=== PATIENT | female | born 1975 | race Two or more races ===

== ENCOUNTER 2020-01-21 10:28 | Outpatient (REF) | payer OTHER, SELFPAY ==
[2020-01-21 11:00] LABS: COVID-19 Test Negative (Negative)
== END 2020-01-21 10:29 | disposition home or self-care (01) ==
LOC: HO.LAB 10:28
PROVIDERS: PCP Internal Medicine; Visit Provider Internal Medicine
DX: Z20.828 Contact with and (suspected) exposure to other viral communicable diseases (principal)
CPT/HCPCS: 87635

== ENCOUNTER 2020-02-28 07:08 | Outpatient (REF) | payer OTHER, SELFPAY ==
[2020-02-28 07:50] LABS: COVID-19 Test Negative (Negative)
== END 2020-02-28 07:09 | disposition home or self-care (01) ==
LOC: HO.LAB 07:08
PROVIDERS: Visit Provider Internal Medicine
DX: Z20.828 Contact with and (suspected) exposure to other viral communicable diseases (principal)
CPT/HCPCS: 87635; C9803

== ENCOUNTER 2020-03-23 16:18 | Outpatient (REF) | payer OTHER, SELFPAY ==
--- NOTE | 2020-03-23 | XR_ITS ---
EXAMINATION: XR SINUSES CLINICAL INFORMATION: Pain. Rule out infiltration. COMPARISON: 09/13/2018 TECHNIQUE: 4 views of the sinuses were obtained. FINDINGS: Paranasal sinuses appear clear without air-fluid levels. No fractures are identified. No radiodense foreign bodies. XR/XR sinus min 3V IMPRESSION: Unremarkable examination.
[2020-03-23 17:34] LABS: MANUAL DIFF FLAG NO
[2020-03-23 17:41] LABS: Basophils Percent Auto 0.8 % (0-2); Eosinophils Absolute Auto 0.3 X10*3/uL (0.0-0.4); Hematocrit 39.6 % (37-47); Hemoglobin 13.7 g/dl (12.0-16.0); Imm Gran Abs Auto 0.01 X10*3/uL (0.00-0.03); Imm Gran Pct Auto 0.2 % (0.0-0.4); Lymphocytes Absolute Auto 1.9 X10*3/uL (1.2-4.9); Lymphocytes Percent Auto 37.1 % (20-40); Mean Corpuscular HGB Conc 34.6 g/dl (31.0-35.0); Mean Corpuscular Hemoglobin 28.2 pg (27.0-33.0); Mean Corpuscular Volume 81.6 fL (80-98); Monocytes Absolute Auto 0.4 X10*3/uL (0.1-1.2); Neutrophils Absolute Auto 2.5 X10*3/uL (2.0-8.3); Neutrophils Percent Auto 49.9 % (45-73); Platelet Count 271 X10*3/uL (160-400); Red Blood Count 4.85 X10*6/uL (4.20-5.50); Red Cell Distribution Width 12.4 % (11.0-16.0)
[2020-03-23 17:49] LABS: Estimated Average Glucose 212 mg/dL
[2020-03-23 18:07] LABS: Alanine Aminotransferase 33 U/L (0-31); Albumin Level 4.5 g/dL (3.5-5.0); Alkaline Phosphatase 91 U/L (39-117); Anion Gap 15 (12-20); Aspartate Amino Transferase 21 U/L (5-31); Bilirubin Total 0.5 mg/dL (0.0-1.0); Blood Urea Nitrogen 11 mg/dL (9-16); C Reactive Protein 1.78 mg/dL (< or = 0.50); Carbon Dioxide 25 mmol/L (22-29); Chloride 102 mmol/L (96-108); Cholesterol 203 mg/dL; Estimated Glomerular Filt Rate > 60; Glucose Random 190 mg/dL (60-115); Potassium 4.1 mmol/l (3.3-5.1); Sodium 138 mmol/L (135-145); Total Protein 7.3 g/dL (6.5-8.0)
[2020-03-23 18:13] LABS: Creatinine Urine 170.36 mg/dL; Microalbum/Creatinine Ratio Ur 4.1 ug/mg cr
[2020-03-23 18:28] LABS: Free T4 (Free Thyroxine) 0.92 ng/dL (0.71-1.85); Thyroid Stimulating Hormone 1.28 uIU/mL (0.32-4.0)
== END 2020-03-23 16:19 | disposition home or self-care (01) ==
LOC: HO.LAB 16:18
PROVIDERS: PCP Internal Medicine; Visit Provider Internal Medicine
DX: R51.9 Headache, unspecified (principal); K21.9 Gastro-esophageal reflux disease without esophagitis; R53.83 Other fatigue; E11.9 Type 2 diabetes mellitus without complications; J45.909 Unspecified asthma, uncomplicated; M79.10 Myalgia, unspecified site
CPT/HCPCS: 36415; 70220; 80053; 82043; 82465; 83036; 84439; 84443; 85025; 86140; 87071; 87147; 87880

== ENCOUNTER 2020-05-01 10:47 | Outpatient (REF) | payer OTHER, SELFPAY ==
[2020-05-02 11:45] LABS: BV Int Neg Control Negative (Negative); BV Int Pos Control Positive (Positive)
[2020-05-04 16:48] LABS: C. trachomatis RNA TMA NOT DETECTED (NOT DETECTED); N. gonorrhoeae RNA TMA NOT DETECTED (NOT DETECTED)
== END 2020-05-01 10:48 | disposition home or self-care (01) ==
LOC: HO.LAB 10:47
PROVIDERS: PCP Internal Medicine; Visit Provider Advanced Practice Midwife
DX: Z01.419 Encounter for gynecological examination (general) (routine) without abnormal findings (principal); N89.8 Other specified noninflammatory disorders of vagina; N90.89 Other specified noninflammatory disorders of vulva and perineum; Z20.2 Contact with and (suspected) exposure to infections with a predominantly sexual mode of transmission
CPT/HCPCS: 36415; 87480; 87491; 87510; 87591; 87660

== ENCOUNTER 2020-05-08 08:57 | Outpatient (REF) | payer OTHER, SELFPAY | END 2020-05-08 08:58 | disposition home or self-care (01) | LOC: HO.LAB 08:57 | PROVIDERS: PCP Internal Medicine; Visit Provider Obstetrics & Gynecology | DX: L30.9 Dermatitis, unspecified (principal); J45.909 Unspecified asthma, uncomplicated; E11.9 Type 2 diabetes mellitus without complications | CPT/HCPCS: 56605; 88305 ==

== ENCOUNTER → 2020-05-15 11:30 | Outpatient (BNVA) | payer OTHER, SELFPAY | PROVIDERS: Visit Provider Obstetrics & Gynecology ==

== ENCOUNTER 2020-06-01 09:19 | Emergency (ER) | payer OTHER, SELFPAY ==
[2020-06-01 09:27] VITALS: BP 135/94; PULSE 100; RESP 26; O2SAT 95; BMI 32.0
--- NOTE | 2020-06-01 09:36 | ED_ITS ---
HPI - URI/Sore Throat General Chief Complaint: Upper Respiratory Symptoms Stated Complaint: sob,asthma Time Seen by Provider: 06/01/20 09:36 Source: patient Mode of arrival: ambulatory Limitations: no limitations History of Present Illness HPI Narrative: Shortness of breath for 1 week now with increasing shortness of breath, has been on prednisone for 3 days MD elicited complaint: cough Pertinent past history: asthma Onset (ago): week(s) Consistency: constant Severity: moderate Exacerbating factors: exertion Associated symptoms: cough Related Data Home Medications Medication Instructions Recorded Confirmed albuterol sulfate 90 mcg/actuation 2 puff PO QID 05/08/20 aerosol inhaler blood sugar diagnostic #10 ea 05/08/20 budesonide-formoterol HFA 160 2 puff PO BID 05/08/20 mcg-4.5 mcg/actuation aerosol inhaler cyclobenzaprine 10 mg tablet 10 mg PO TID PRN 05/08/20 dulaglutide 1.5 mg/0.5 mL mg SUBCUT 05/08/20 subcutaneous pen injector insulin glargine 100 unit/mL (3 40 unit SUBCUT BEDTIME 05/08/20 mL) subcutaneous pen insulin lispro 100 unit/mL 2 - 12 unit SUBCUT QID 05/08/20 subcutaneous pen lancets 33 gauge #100 ea 05/08/20 pen needle, diabetic 32 gauge x #50 ea 05/08/20/ umeclidinium 62.5 mcg/actuation 1 inh PO DAILY 05/08/20 blister powder for inhalation Previous Rx's Medication Instructions Recorded metronidazole 0.75 % vaginal gel 1 appful VAGINAL BEDTIME 5 Days 05/04/20 #70 g clobetasol 0.05 % topical ointment 1 appl TOPICAL DAILY #60 g 05/15/20 fluconazole 150 mg tablet 150 mg PO ONCE #1 tab 05/15/20 prednisone 10 mg PO DAILY #49 tab 06/01/20 Allergies Allergy/AdvReac Type Severity Reaction Status Date / Time No Known Allergies Allergy Verified 05/15/20 11:31 Review of Systems Constitutional: Constitutional: Reports no additional constitutional complaints Eyes: Eyes: Reports no additional eye complaints ENT: Denies dizziness Cardiovascular: Cardiovascular: Reports no additional cardiovascular complaints Respiratory: Respiratory: Reports as per HPI Gastrointestinal: Gastrointestinal: Reports no additional gastrointestinal complaints Genitourinary: Genitourinary: Reports no additional female genitourinary complaints Musculoskeletal: Musculoskeletal: Reports no additional musculoskeletal complaints Integumentary/Breasts: Skin/Breast: Denies rash Neurologic: Reports system reviewed and no additional complaints, except as documented, Denies dizziness and Denies Sensory deficit (Neuro) Psychiatric: Psychiatric: Denies anxiety [facility] Past Medical History Medical History Asthma Diabetes mellitus Lichen sclerosus of female genitalia Family History Family History Maternal Grandmother Colon cancer Social History Social History Alcohol intake: current Alcohol intake frequency: a few times a month Smoking Status: Never smoker Advance Directives: No Advance Directives Information Provided: No Sexual orientation: Straight/Heterosexual Physical Exam Vital Signs: Vital Signs: Last Vital Signs Pulse 93 06/01/20 11:41 Resp 22 H 06/01/20 11:41 BP 112/70 06/01/20 11:41 Pulse Ox 98 06/01/20 11:41 Body Mass Index 32.0 Const: General: healthy appearing Nutritional Appearance: average body habitus Orientation/consciousness: oriented to person and patient oriented x3 Limitations: no limitations HENMT: Head: Yes normal to inspection Ears: external ears normal General nose exam: Normal external nose present Mouth: Normal oral and palatal mucosa present and oropharynx normal Throat: Yes posterior oropharynx normal Eyes: General: appearance normal, both eyes and all related structures Neck: Other: supple Neck: Yes normal visual inspection Chest: Chest palpation & inspection: normal inspection of the chest Resp: Other: diffuse wheezing some retractions but moving air Cardio: Jugular venous distension: no JVD Rate: regular rate Rhythm: regular rhythm Heart sounds: S1 normal heart sound present and S2 normal heart sound present GI: Inspection: Yes normal to inspection Palpation (GI): Soft to palpation, nontender and No hepatosplenomegaly present Auscultation: normal bowel sounds : General: Yes no CVA tenderness Back/Spine/Pelvis: Back: no CVA tenderness Skin: General skin exam: no rashes or lesions noted Neuro: General: oriented to person and patient oriented x3 Cranial nerves: Yes CN's II-XII intact bilaterally Motor exam (neuro): 5/5 motor strength present throughout Sensory Exam: No Sensory deficit (Neuro) Extrem: General: Yes normal to inspection Psych: Appearance: grossly normal Course Course Course Narrative: breath sounds clear, feels 100% better MDM - URI/Sore Throat MDM Narrative Medical decision making narrative: asthma exacerbation Lab Data Result diagrams: 06/01/20 10:02 06/01/20 10:02 Labs: Lab Results 06/01/20 06/01/20 Range/Units 10:02 10:02 WBC 13.1 H (4.8-10.8) X10*3/uL RBC 5.34 (4.20-5.50) X10*6/uL Hgb 14.9 (12.0-16.0) g/dl Hct 43.0 (37-47) % MCV 80.5 (80-98) fL MCH 27.9 (27.0-33.0) pg MCHC 34.7 (31.0-35.0) g/dl RDW 12.3 (11.0-16.0) % Plt Count 313 (160-400) X10*3/uL MPV 10.7 (9.4-12.3) fL Immature Gran % (Auto) 0.6 H (0.0-0.4) % Neut % (Auto) 68.6 (45-73) % Lymph % (Auto) 25.0 (20-40) % Barry % (Auto) 4.6 (2-11) % Eos % (Auto) 0.8 (0-4) % Baso % (Auto) 0.4 (0-2) % Lymph # (Auto) 3.3 (1.2-4.9) X10*3/uL Barry # (Auto) 0.6 (0.1-1.2) X10*3/uL Eos # (Auto) 0.1 (0.0-0.4) X10*3/uL Baso # (Auto) 0.1 (0.0-0.2) X10*3/uL Abs Immat Gran (auto) 0.08 H (0.00-0.03) X10*3/uL Absolute Neuts (auto) 9.0 H (2.0-8.3) X10*3/uL Absolute Nucleated RBC 0.000 (0.0-0.012) X10*3/uL Nucleated RBC % (auto) 0.0 (0.0-0.2) /100WBC Sodium 137 (135-145) mmol/L Potassium 4.2 (3.3-5.1) mmol/L Chloride 101 (96-108) mmol/L Carbon Dioxide 25 (22-29) mmol/L Anion Gap 15 (12-20) BUN 18 H D (9-16) mg/dL Creatinine 0.84 (0.5-1.4) mg/dL Estim Creat Clear Calc 76.2 Estimated GFR > 60 Random Glucose 296 H D (60-115) mg/dL Calcium 9.5 (8.4-10.2) mg/dL Discharge Plan Discharge Clinical Impression: Asthma attack Qualifiers: Asthma severity: moderate Asthma persistence: persistent Qualified Code(s): J45.41 - Moderate persistent asthma with (acute) exacerbation Patient Disposition: Home, Self-Care Instructions: Asthma (ED) Prescriptions: New prednisone 10 mg tablet 10 mg PO DAILY Qty: 49 RF: 0 No Action metronidazole [Metrogel Vaginal] 0.75 % gel 1 appful vaginal BEDTIME 5 Days Qty: 70 RF: 0 clobetasol 0.05 % ointment 1 appl topical DAILY Qty: 60 RF: 4 fluconazole 150 mg tablet 150 mg PO ONCE Qty: 1 RF: 0 Lantus Solostar U-100 Insulin 100 unit/mL (3 mL) insulin pen 40 unit subcut BEDTIME RF: 0 albuterol sulfate 90 mcg/actuation HFA aerosol inhaler 2 puff PO QID RF: 0 Trulicity 1.5 mg/0.5 mL pen injector subcut RF: 0 (DME) lancets 33 gauge misc See Rx Instructions ea .ROUTE QID Qty: 100 RF: 0 (DME) pen needle, diabetic 32 gauge x 5/32 needle See Rx Instructions ea subcut QID Qty: 50 RF: 0 (DME) OneTouch Verio test strips Strip See Rx Instructions ea Not Applicable QID Qty: 10 RF: 0 cyclobenzaprine 10 mg tablet 10 mg PO TID PRN (Reason: muscle spasm) RF: 0 budesonide-formoterol 160-4.5 mcg/actuation HFA aerosol inhaler 2 puff PO BID RF: 0 insulin lispro 100 unit/mL insulin pen 2 - 12 unit subcut QID RF: 0 Incruse Ellipta 62.5 mcg/actuation blister with device 1 inh PO DAILY RF: 0 Referrals: Leonardo Melgar MD [Primary Care Provider] - 2 days
[2020-06-01] MEDS: methylPREDNISolone Sod Succ/PF 125 MG/2 ML VIAL IVPUSH (09:51)
[2020-06-01] MEDS: ondansetron HCL 4 MG/2 ML VIAL IVPUSH (09:55)
[2020-06-01 10:10] LABS: MANUAL DIFF FLAG NO
[2020-06-01 10:12] LABS: Basophils Absolute Auto 0.1 X10*3/uL (0.0-0.2); Basophils Percent Auto 0.4 % (0-2); Eosinophils Absolute Auto 0.1 X10*3/uL (0.0-0.4); Eosinophils Percent Auto 0.8 % (0-4); Hemoglobin 14.9 g/dl (12.0-16.0); Imm Gran Abs Auto 0.08 X10*3/uL (0.00-0.03); Imm Gran Pct Auto 0.6 % (0.0-0.4); Lymphocytes Absolute Auto 3.3 X10*3/uL (1.2-4.9); Mean Corpuscular HGB Conc 34.7 g/dl (31.0-35.0); Mean Corpuscular Hemoglobin 27.9 pg (27.0-33.0); Mean Corpuscular Volume 80.5 fL (80-98); Mean Platelet Volume 10.7 fL (9.4-12.3); Monocytes Absolute Auto 0.6 X10*3/uL (0.1-1.2); Monocytes Percent Auto 4.6 % (2-11); Neutrophils Percent Auto 68.6 % (45-73); Platelet Count 313 X10*3/uL (160-400); Red Blood Count 5.34 X10*6/uL (4.20-5.50); Red Cell Distribution Width 12.3 % (11.0-16.0); White Blood Count 13.1 X10*3/uL (4.8-10.8)
[2020-06-01] MEDS: Albuterol Sulfate (0.083%) 2.5 MG/3 ML VIAL.NEB 10 MG INHALE (10:16)
[2020-06-01 10:34] LABS: Anion Gap 15 (12-20); Blood Urea Nitrogen 18 mg/dL (9-16); Calcium 9.5 mg/dL (8.4-10.2); Carbon Dioxide 25 mmol/L (22-29); Chloride 101 mmol/L (96-108); Creatinine Clr Calc Pharmacy 76.2; Estimated Glomerular Filt Rate > 60; Glucose Random 296 mg/dL (60-115); Potassium 4.2 mmol/L (3.3-5.1); Sodium 137 mmol/L (135-145)
--- NOTE | 2020-06-01 11:13 | PC.NURSE ---
Pt reporting that she is feelng much better at this time. She is doing continuous treatment at this time. She had one episode of vomiting earlier after a coughing fit for which she was medicated with zofran. She has been coughing much less since. When she arrived she had insp and exp wheezing to upper lung flores and very diminished bases. She is less wheezy at this time and is less diminished as well.
[2020-06-01 11:41] VITALS: BP 112/70; PULSE 93; RESP 22; O2SAT 98
[2020-06-01] MEDS: Albuterol/Iprat 2.5/0.5MG 3 ML AMPUL.NEB INHALE (13:04)
== END 2020-06-01 14:04 | disposition home or self-care (01) ==
PROVIDERS: Emergency Provider Emergency Medicine; PCP Internal Medicine
DX: J45.41 Moderate persistent asthma with (acute) exacerbation (principal); E11.9 Type 2 diabetes mellitus without complications; Z79.899 Other long term (current) drug therapy; Z79.4 Long term (current) use of insulin
CPT/HCPCS: 36415; 80048; 85025; 96374; 96375; 99283; 99284; J2405; J2930

== ENCOUNTER → 2020-06-19 10:09 | Outpatient (BNVA) | payer OTHER, SELFPAY | PROVIDERS: PCP Internal Medicine; Visit Provider Hospitalist ==

== ENCOUNTER 2020-11-27 08:09 | Outpatient (REF) | payer OTHER, SELFPAY ==
--- NOTE | ~2020-11-27 | MM_ITS ---
EXAMINATION: MM SCREENING DIGITAL BREAST TOMOSYNTHESIS, BILATERAL CLINICAL INFORMATION: Screening. Asymptomatic. The lifetime risk of breast cancer based on the Tyrer-Cuzick Model is 9%. COMPARISON: Mammography: 02/27/2019, 07/18/2018, 08/10/2016 (baseline) TECHNIQUE: Digital breast tomosynthesis is performed in both the craniocaudal and mediolateral oblique views along with computer-aided detection (CAD). Synthesized 2D images are generated from the tomosynthesis. FINDINGS: The breasts are heterogeneously dense, which may obscure small masses (ACR BI-RADS breast composition Category c). There are no significant masses, abnormal calcifications, or other abnormalities. Focal nodular asymmetry central 3:00 right breast mid to posterior depth is stable from prior studies dating back to baseline exam 2017. No developing density. There are scattered bilateral punctate round calcifications and some digital processing artifact anteriorly at synthesized right MLO view. The axilla and skin contours are unremarkable. No significant changes. MM/MM tomosynthesis screening BI IMPRESSION: No significant changes from prior studies. ASSESSMENT: BI-RADS 2: Benign RECOMMENDATION: Routine annual mammography screening. This patient's information was entered into a reminder system with a target due date for their next mammogram.
== END 2020-11-27 08:10 | disposition home or self-care (01) ==
LOC: HO.MAMMO 08:09
PROVIDERS: Visit Provider Internal Medicine
DX: Z12.31 Encounter for screening mammogram for malignant neoplasm of breast (principal)
CPT/HCPCS: 77063; 77067

== ENCOUNTER 2020-12-07 13:17 | Outpatient (REF) | payer OTHER, SELFPAY ==
--- NOTE | ~2020-12-07 | XR_ITS ---
EXAMINATION: XR CHEST CLINICAL INFORMATION: Bronchopneumonia. COMPARISON: Most recent chest radiograph dated 07/01/2019. TECHNIQUE: 2 views of the chest were obtained. FINDINGS: The lungs are clear. The cardiomediastinal silhouette is normal in size. There is no pleural effusion or pneumothorax. No acute osseous abnormality. XR/XR chest 2V IMPRESSION: No acute cardiopulmonary findings.
== END 2020-12-07 13:18 | disposition home or self-care (01) ==
LOC: HO.XRAY 13:17
PROVIDERS: PCP Internal Medicine; Visit Provider Hospitalist
DX: J45.50 Severe persistent asthma, uncomplicated (principal); J30.9 Allergic rhinitis, unspecified; J18.0 Bronchopneumonia, unspecified organism
CPT/HCPCS: 71046; 96372; 99212; J2930

== ENCOUNTER 2021-01-15 09:19 | Outpatient (REF) | payer OTHER, SELFPAY ==
[2021-01-15 09:50] LABS: MANUAL DIFF FLAG NO
[2021-01-15 10:51] LABS: Basophils Percent Auto 0.6 % (0-2); Eosinophils Absolute Auto 0.3 X10*3/uL (0.0-0.4); Eosinophils Percent Auto 5.7 % (0-4); Hematocrit 40.9 % (37-47); Hemoglobin 14.1 g/dl (12.0-16.0); Imm Gran Abs Auto 0.04 X10*3/uL (0.00-0.03); Imm Gran Pct Auto 0.8 % (0.0-0.4); Lymphocytes Absolute Auto 1.1 X10*3/uL (1.2-4.9); Mean Corpuscular HGB Conc 34.5 g/dl (31.0-35.0); Mean Corpuscular Volume 81.3 fL (80-98); Mean Platelet Volume 10.5 fL (9.4-12.3); Monocytes Absolute Auto 0.4 X10*3/uL (0.1-1.2); Monocytes Percent Auto 7.5 % (2-11); Neutrophils Absolute Auto 3.5 X10*3/uL (2.0-8.3); Neutrophils Percent Auto 65.4 % (45-73); Platelet Count 230 X10*3/uL (160-400); Red Blood Count 5.03 X10*6/uL (4.20-5.50); Red Cell Distribution Width 12.4 % (11.0-16.0); White Blood Count 5.3 X10*3/uL (4.8-10.8)
[2021-01-15 11:03] LABS: Estimated Average Glucose 266 mg/dL; Hemoglobin A1c % 10.9 %
[2021-01-15 11:13] LABS: Alanine Aminotransferase 41 U/L (0-31); Albumin Level 4.2 g/dL (3.5-5.0); Alkaline Phosphatase 102 U/L (39-117); Anion Gap 13 (12-20); Aspartate Amino Transferase 22 U/L (5-31); Bilirubin Total 0.5 mg/dL (0.0-1.0); Blood Urea Nitrogen 8 mg/dL (9-16); Calcium 9.3 mg/dL (8.4-10.2); Carbon Dioxide 27 mmol/L (22-29); Chloride 101 mmol/L (96-108); Cholesterol 191 mg/dL; Estimated Glomerular Filt Rate > 60; Glucose Fasting 313 mg/dL (60-99); HDL Cholesterol 55 mg/dL; LDL Cholesterol Calculated 116 mg/dl; Potassium 4.3 mmol/L (3.3-5.1); Sodium 137 mmol/L (135-145); Total Protein 7.1 g/dL (6.5-8.0); Triglycerides 103 mg/dL
[2021-01-15 13:31] LABS: Creatinine Urine 193.69 mg/dL; Microalbum/Creatinine Ratio Ur 13.9 ug/mg cr
== END 2021-01-15 09:20 | disposition home or self-care (01) ==
LOC: HO.LAB 09:19
PROVIDERS: PCP Internal Medicine; Visit Provider Internal Medicine
DX: E11.9 Type 2 diabetes mellitus without complications (principal); J45.909 Unspecified asthma, uncomplicated; E78.00 Pure hypercholesterolemia, unspecified
CPT/HCPCS: 36415; 80053; 80061; 82043; 83036; 85025

== ENCOUNTER → 2021-02-05 11:09 | Outpatient (BNVA) | payer OTHER, SELFPAY | PROVIDERS: PCP Internal Medicine; Visit Provider Hospitalist | DX: J45.50 Severe persistent asthma, uncomplicated (principal); J30.9 Allergic rhinitis, unspecified | CPT/HCPCS: 99212 ==

== ENCOUNTER → 2021-03-23 09:51 | Outpatient (BNVA) | payer OTHER, SELFPAY | PROVIDERS: PCP Internal Medicine; Visit Provider Hospitalist | DX: J45.51 Severe persistent asthma with (acute) exacerbation (principal); J30.9 Allergic rhinitis, unspecified | CPT/HCPCS: 96372; 99212; J2930 ==

== ENCOUNTER 2021-05-24 09:34 | Outpatient (REF) | payer OTHER, SELFPAY ==
[2021-05-24 15:45] LABS: CT PCR NOT DETECTED (Not Detect.); NG PCR NOT DETECTED (Not Detect.)
[2021-05-25 11:01] LABS: BV Int Neg Control Negative (Negative); BV Int Pos Control Positive (Positive)
[2021-05-26 20:51] LABS: HPV mRNA E6/E7 rflx Not Detected (Not Detected)
== END 2021-05-24 09:35 | disposition home or self-care (01) ==
LOC: HO.LAB 09:34
PROVIDERS: PCP Internal Medicine; Visit Provider Advanced Practice Midwife
DX: Z01.411 Encounter for gynecological examination (general) (routine) with abnormal findings (principal); Z11.51 Encounter for screening for human papillomavirus (HPV); N94.6 Dysmenorrhea, unspecified; N92.0 Excessive and frequent menstruation with regular cycle; Z20.2 Contact with and (suspected) exposure to infections with a predominantly sexual mode of transmission
CPT/HCPCS: 87480; 87491; 87510; 87591; 87624; 87660; 88142

== ENCOUNTER → 2021-07-05 14:51 | Outpatient (BNVA) | payer OTHER, SELFPAY | PROVIDERS: PCP Internal Medicine; Visit Provider Hospitalist | DX: J45.909 Unspecified asthma, uncomplicated (principal) | CPT/HCPCS: 99212 ==

== ENCOUNTER 2021-07-13 07:35 | Outpatient (REF) | payer OTHER, SELFPAY ==
[2021-07-13 07:54] LABS: MANUAL DIFF FLAG NO
[2021-07-13 08:25] LABS: Basophils Percent Auto 0.7 % (0-2); Eosinophils Percent Auto 0.2 % (0-4); Hematocrit 42.5 % (37.0-47.0); Imm Gran Abs Auto 0.02 X10*3/uL (0.00-0.03); Imm Gran Pct Auto 0.5 % (0.0-0.4); Lymphocytes Absolute Auto 1.2 X10*3/uL (1.2-4.9); Lymphocytes Percent Auto 28.6 % (20-40); Mean Corpuscular HGB Conc 35.3 g/dl (31.0-35.0); Mean Corpuscular Hemoglobin 28.3 pg (27.0-33.0); Mean Corpuscular Volume 80.2 fL (80.0-98.0); Mean Platelet Volume 10.9 fL (9.4-12.3); Monocytes Absolute Auto 0.3 X10*3/uL (0.1-1.2); Monocytes Percent Auto 7.5 % (2-11); Neutrophils Absolute Auto 2.7 x10*3/uL (2.0-8.3); Neutrophils Percent Auto 62.5 % (45-73); Platelet Count 247 X10*3/uL (160-400); White Blood Count 4.3 X10*3/uL (4.8-10.8)
[2021-07-13 09:11] LABS: Erythrocyte Sedimentation Rate 7 MM/HR (0-20); Thyroid Stimulating Hormone 1.19 uIU/mL (0.32-4.0)
[2021-07-16 13:31] LABS: IgG 848; IgM 88
[2021-07-16 13:32] LABS: Immunoglobulin E 30
== END 2021-07-13 07:36 | disposition home or self-care (01) ==
LOC: HO.LAB 07:35
PROVIDERS: Advanced Practice Midwife; PCP Internal Medicine; Visit Provider Hospitalist
DX: N92.0 Excessive and frequent menstruation with regular cycle (principal); N94.6 Dysmenorrhea, unspecified; J45.51 Severe persistent asthma with (acute) exacerbation; Z91.09 Other allergy status, other than to drugs and biological substances
CPT/HCPCS: 36415; 82784; 82785; 84443; 85025; 85652; 86003

== ENCOUNTER → 2021-08-20 09:32 | Outpatient (BNVA) | payer OTHER, SELFPAY | PROVIDERS: PCP Internal Medicine; Visit Provider Hospitalist | DX: J45.51 Severe persistent asthma with (acute) exacerbation (principal); J30.9 Allergic rhinitis, unspecified | CPT/HCPCS: 99212 ==

== ENCOUNTER 2021-10-21 16:35 | Observation (INO) | payer OTHER, SELFPAY ==
--- NOTE | ~2021-10-21 | XR_ITS ---
EXAMINATION: XR chest 1V CLINICAL INFORMATION: Reason for Exam asthma COMPARISON: Chest radiograph 12/07/2020 TECHNIQUE: One view of the chest XR/XR chest 1V FINDINGS/IMPRESSION: * Minimal peribronchial cuffing, which can be seen in the setting of small airways process such as asthma or bronchitis. No focal consolidation. * No pneumothorax or pleural effusion. * Normal cardiomediastinal silhouette.
[2021-10-21 16:52] VITALS: BP 142/86; PULSE 129; RESP 24; TEMP 36.8; O2SAT 97; BMI 29.2
--- NOTE | 2021-10-21 16:54 | ECG_ITS ---
Test Reason : asthma Blood Pressure : / mmHG Vent. Rate : 128 BPM Atrial Rate : 128 BPM P-R Int : 136 ms QRS Dur : 084 ms QT Int : 308 ms P-R-T Axes : 059 024 021 degrees QTc Int : 449 ms Sinus tachycardia Otherwise normal ECG When compared with ECG of 05-SEP-2018 09:18, No significant change was found Referred By: Generic ED Physician Electronically Signed By:KORI LOPEZ MD
[2021-10-21] MEDS: Magnesium Sulfate/H2O 2 GM/50 ML PIGGYBACK IV (17:32)
[2021-10-21] MEDS: methylPREDNISolone Sod Succ 125 MG/2 ML VIAL 80 MG IVPUSH (17:32)
--- NOTE | 2021-10-21 17:36 | ED.ASTHMA ---
HPI - Asthma General Chief Complaint: Dyspnea Stated Complaint: asthma Time Seen by Provider: 10/21/21 17:15 Source: patient Mode of arrival: ambulatory Limitations: no limitations History of Present Illness HPI Narrative: Patient presents emergency department for evaluation of asthma exacerbation. She reports over the past 2 days her symptoms have become increasingly worse, has associated nonproductive cough and sore throat. She reports trying an hour long breathing treatment prior to arrival, states that this will typically improve her symptoms for a couple of hours but then are returning. States she has not been on steroids recently. Denies any prior intubations due to her asthma. Reports low-grade fever 100.8. Complaining of associated chest burning. Related Data Home Medications Medication Instructions Recorded Confirmed blood sugar diagnostic #10 ea 05/08/20 insulin glargine 100 unit/mL (3 40 unit subcut BEDTIME 05/08/20 06/19/20 mL) subcutaneous pen insulin lispro 100 unit/mL 2 - 12 unit subcut QID 05/08/20 06/19/20 subcutaneous pen lancets 33 gauge #100 ea 05/08/20 pen needle, diabetic 32 gauge x #50 ea 05/08/20 5/32 dulaglutide 1.5 mg/0.5 mL mg subcut 06/19/20 06/19/20 subcutaneous pen injector montelukast 10 mg tablet 10 mg PO DAILY 02/05/21 fluticasone propionate 50 spray intranasal 03/23/21 mcg/actuation nasal spray,suspension Previous Rx's Medication Instructions Recorded budesonide 0.5 mg/2 mL suspension 0.5 mg (2 mL) inhalation BID 30 06/19/20 for nebulization days #120 mL benralizumab 30 mg/mL subcutaneous See Rx Instructions subcut Q8W 28 06/23/20 auto-injector (Fasenra Pen) days #1 mL ipratropium 0.5 mg-albuterol 3 mg 3 ml inhalation QID 30 days #360 mL 12/07/20 (2.5 mg base)/3 mL nebulization soln tiotropium bromide 2.5 2 puff inhalation DAILY 30 days #1 12/28/20 mcg/actuation mist for inhalation ea (Spiriva Respimat) albuterol sulfate 90 mcg/actuation 2 inh inhalation Q6H PRN shortness 03/23/21 aerosol inhaler of breath or wheezing 30 days #18 grams budesonide 160 mcg-glycopyr 9 2 inh inhalation BID 30 days #10.7 03/23/21 mcg-formot 4.8 mcg/actuation HFA grams inhaler (Breztri Aerosphere) roflumilast 250 mcg tablet 250 mcg PO DAILY 30 days #30 tabs 08/20/21 (Daliresp) Allergies Allergy/AdvReac Type Severity Reaction Status Date / Time No Known Allergies Allergy Verified 08/20/21 09:37 Review of Systems Review of Systems: Constitutional : No Fever, No Chills ENT/Mouth : No Hoarseness, positive sore throat, No Rhinorrhea Eyes: No Redness, No Discharge, No Vision Changes Cardiovascular : Positive Chest Pain, positive SOB, positive Dyspnea on Exertion, No Edema Respiratory : positive Cough, No Sputum, positive Wheezing, Gastrointestinal : No Nausea, No Vomiting, No Diarrhea, No abdominal Pain Genitourinary : No Dysuria, No Hematuria Musculoskeletal : No joint pain, No Myalgias Skin : No rash Neuro : No Weakness, No Numbness, No Headache Psych : No anxiety, depression Heme/Lymph: No Bruising, No Bleeding Yes all other systems are reviewed and are negative [facility] Past Medical History Attestation statement: The following information was validated with the patient. Source: old records reviewed Medical History Asthma Bronchopneumonia Chronic allergic rhinitis Diabetes mellitus Lichen sclerosus of female genitalia Surgical History History of nasal surgery (~1995) History of tubal ligation (~2013) Family History Family History Maternal Grandmother Colon cancer Social History Social History Alcohol intake: current Alcohol intake frequency: a few times a month Patient Tobacco Use Status: Never used Tobacco Advance Directives: No Advance Directives Information Provided: No Sexual orientation: Straight/Heterosexual Physical Exam Vital Signs: Vital Signs: Last Vital Signs Temp 98.3 F 10/21/21 19:42 Pulse 125 H 10/21/21 19:58 Resp 20 10/21/21 19:58 BP 146/58 H 10/21/21 19:42 Pulse Ox 95 10/21/21 19:58 O2 Del Method 10/21/21 19:58 BMI result Body Mass Index 29.2 Vital signs have been reviewed as normal and appeared to be correct. Hypertensive, tachycardic, tachypneic.. Temperature normal.? Oxygen saturation normal. Appearance: Alert.?Oriented to person, place and time. No acute distress.?Normal affect. Eyes: Pupils equal, round and reactive to light.? ENT: Pharynx erythematous, no exudate Neck: Normal inspection.? Neck supple.?? CVS: Heart sounds normal. Normal heart rate and rhythm.? Pulses normal.?? Respiratory: No respiratory distress.? Lung sounds without wheezing, diminished/tight bilaterally, increased work of breathing Abdomen: Soft and non-tender. Normoactive bowel sounds. Skin: Skin warm and dry.? Normal skin color.? ?? Extremities: No lower extremity edema.? No calf ttp? Neuro: Moves all extremities spontaneously. Sensation intact bilaterally. CN II-XII intact. No focal neuro deficits. Ambulates with normal steady gait. Course Course Course Narrative: Patient is a 46-year-old female with a past medical history of type 2 diabetes, asthma presenting to emergency department for evaluation of asthma exacerbation. No prior intubations, but does report history of asthma and patient did admissions. Notable increased work of breathing, tachypnea and tachycardic upon arrival, no room air hypoxia. Will obtain chest x-ray, EKG and troponin, CBC, CMP, troponin, COVID-19, group a strep testing. Patient to receive DuoNeb with total albuterol 10 mg nebulizer, Solu-Medrol IV, and magnesium 2 g IV. Disposition pending results Reevaluation(s) Reevaluation #1: Patient noted to be hyperglycemic 397, stated that she has not taken her insulin yet today. CBC and BMP are unremarkable. EKG reveals sinus tachycardia no acute ischemic findings, Troponin <3.5. No significant improvement in her breathing, lung sounds continue to be type bilaterally. No hypoxia on room air, however her peak flow is 100. Time: 18:26 Reevaluation #2: Spoke with hospitalist Dr. Nunez, admission to medicine service for asthma exacerbation, who accepted patient. Time: 19:05 [facility] - Asthma Medical Records Attestation: I reviewed the patient's medical records. Lab Data Attestation: I reviewed the patient's lab results. Result diagrams: 10/21/21 17:30 10/21/21 17:30 Labs: Lab Results 10/21/21 10/21/21 10/21/21 Range/Units 17:30 17:30 17:30 WBC 8.1 (4.8-10.8) X10*3/uL RBC 5.03 (4.20-5.50) X10*6/uL Hgb 13.9 (12.0-16.0) g/dl Hct 40.6 (37.0-47.0) % MCV 80.7 (80.0-98.0) fL MCH 27.6 (27.0-33.0) pg MCHC 34.2 (31.0-35.0) g/dl RDW 12.5 (11.0-16.0) % Plt Count 218 (160-400) X10*3/uL MPV 10.5 (9.4-12.3) fL Absolute Nucleated RBC 0.000 (0.0-0.012) X10*3/uL Nucleated RBC % (auto) 0.0 (0.0-0.2) /100WBC Sodium 135 (135-145) mmol/L Potassium 3.8 (3.3-5.1) mmol/L Chloride 100 (96-108) mmol/L Carbon Dioxide 23 (22-29) mmol/L Anion Gap 16 (12-20) BUN 6 L (9-16) mg/dL Creatinine 0.78 (0.5-1.4) mg/dL Estim Creat Clear Calc 77.5 Estimated GFR > 60 Random Glucose 397 H* (60-115) mg/dL Calcium 9.1 (8.4-10.2) mg/dL Troponin I High Sens < 3.5 (<3.5-17.0) ng/L COVID-19 ([facility]) (Negative) COVID-19 Clin Com S. pyogenes GrpA COREY (Negative) 10/21/21 10/21/21 Range/Units 17:30 17:30 WBC (4.8-10.8) X10*3/uL RBC (4.20-5.50) X10*6/uL Hgb (12.0-16.0) g/dl Hct (37.0-47.0) % MCV (80.0-98.0) fL MCH (27.0-33.0) pg MCHC (31.0-35.0) g/dl RDW (11.0-16.0) % Plt Count (160-400) X10*3/uL MPV (9.4-12.3) fL Absolute Nucleated RBC (0.0-0.012) X10*3/uL Nucleated RBC % (auto) (0.0-0.2) /100WBC Sodium (135-145) mmol/L Potassium (3.3-5.1) mmol/L Chloride (96-108) mmol/L Carbon Dioxide (22-29) mmol/L Anion Gap (12-20) BUN (9-16) mg/dL Creatinine (0.5-1.4) mg/dL Estim Creat Clear Calc Estimated GFR Random Glucose (60-115) mg/dL Calcium (8.4-10.2) mg/dL Troponin I High Sens (<3.5-17.0) ng/L COVID-19 ([facility]) Negative (Negative) COVID-19 Clin Com See Note S. pyogenes GrpA COREY Negative (Negative) Imaging Data Chest x-ray: Radiologist's impression: XR/XR chest 1V FINDINGS/IMPRESSION: ? *? Minimal peribronchial cuffing, which can be seen in the setting of small airways process such as asthma or bronchitis. No focal consolidation. ? *? No pneumothorax or pleural effusion. ? *? Normal cardiomediastinal silhouette. ECG Data Attestation: I personally reviewed and interpreted this ECG as follows: ECG interpretation date: 10/21/21 Prior ECG tracings: available for review Interpretation: Rate: 128 Rhythm:? Sinus tachycardia [place]:? Radha Normal P waves.? Normal [place]IGU[place].?? Normal QRS complex.?? ST T wave :??No ST elevation, no ST depression, T-wave inversion qTC: 449 prior studies:? August 2018 The study has been interpreted contemporaneously by me. Discharge Plan Discharge Clinical Impression: Asthma with exacerbation Patient Disposition: Admitted As Inpatient
[2021-10-21 17:39] LABS: Hematocrit 40.6 % (37.0-47.0); Hemoglobin 13.9 g/dl (12.0-16.0); Mean Corpuscular HGB Conc 34.2 g/dl (31.0-35.0); Mean Corpuscular Hemoglobin 27.6 pg (27.0-33.0); Mean Corpuscular Volume 80.7 fL (80.0-98.0); Mean Platelet Volume 10.5 fL (9.4-12.3); Platelet Count 218 X10*3/uL (160-400); Red Blood Count 5.03 X10*6/uL (4.20-5.50); Red Cell Distribution Width 12.5 % (11.0-16.0); White Blood Count 8.1 X10*3/uL (4.8-10.8)
[2021-10-21 17:48] VITALS: PULSE 111
[2021-10-21 17:51] LABS: Strep A Nucleic Acid Negative (Negative)
[2021-10-21] MEDS: Albuterol Sulfate (0.083%) 2.5 MG/3 ML VIAL.NEB 7.5 MG INHALE (17:55)
[2021-10-21] MEDS: Albuterol/Iprat 2.5/0.5MG 3 ML AMPUL.NEB INHALE ×2 (17:55→20:00)
[2021-10-21 17:57] LABS: COVID-19 Test Negative (Negative); IDNOW Serial# 16C4AD1C
[2021-10-21 18:01] VITALS: PULSE 113; RESP 20; O2SAT 98
[2021-10-21 18:01] LABS: Anion Gap 16 (12-20); Blood Urea Nitrogen 6 mg/dL (9-16); Calcium 9.1 mg/dL (8.4-10.2); Carbon Dioxide 23 mmol/L (22-29); Chloride 100 mmol/L (96-108); Creatinine Clr Calc Pharmacy 77.5; Estimated Glomerular Filt Rate > 60; Glucose Random 397 mg/dL (60-115); Potassium 3.8 mmol/L (3.3-5.1); Sodium 135 mmol/L (135-145)
[2021-10-21 18:03] LABS: Troponin-I High Sensitivity < 3.5 ng/L (<3.5-17.0)
--- NOTE | 2021-10-21 18:17 | PC.NURSE ---
Pt comes in with complaints of SOB x 3 days, tripoding upon arrival. PMHX of asthma, used nebs at home with no relief. IV established, medicated as per [facility] orders. CXR completed, lungs with wheezes and diminished sounds throughout. Call gonzalez within reach. Will continue to monitor.
[2021-10-21 19:42] VITALS: BP 146/58; PULSE 122; RESP 22; TEMP 36.8; O2SAT 96
--- NOTE | 2021-10-21 19:43 | P.HPHOSP_ITS ---
History of Present Illness Date of Service: 10/21/21 Chief Complaint: Asthma exacerbation 46-year-old female with past medical history of diabetes, asthma presents to the hospital with complaints of shortness of breath as well as cough. 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 She reports that her daughter had strep few days ago, she otherwise denies any recent travel, no sick contacts, no chest pain, no abdominal pain, no nausea or vomiting, no diarrhea constipation, no urinary s ymptoms and no lower extremity edema. On arrival to the ED patient hemodynamically stable with a heart rate of 129, respiratory rate of 24 Labs are significant for WBC count of 8.1, hemoglobin of 13.9, otherwise labs unremarkable, COVID-19 negative, strep negative Chest x-ray shows minimal peribronchial cuffing which can be seen in small airway process such as asthma, Patient received multiple rounds of 1 hour DuoNeb treatments, high dosed on Medrol, with no relief and has peak flow of 100 therefore will be admitted for further management of asthma exacerbation Review of Systems Review of Systems: Yes all other systems are reviewed and are negative [facility] Medical History Asthma Bronchopneumonia Chronic allergic rhinitis Diabetes mellitus Lichen sclerosus of female genitalia Family History Maternal Grandmother Colon cancer Surgical History History of nasal surgery (~1995) History of tubal ligation (~2013) Social History Alcohol intake: current Alcohol intake frequency: a few times a month Patient Tobacco Use Status: Never used Tobacco Advance Directives: No Advance Directives Information Provided: No Sexual orientation: Straight/Heterosexual Meds Allergies Allergy/AdvReac Type Severity Reaction Status Date / Time No Known Allergies Allergy Verified 08/20/21 09:37 Active Medications: Current Medications Acetaminophen (Acetaminophen 325 Mg Tablet) 650 mg PO Q6H PRN PRN Reason: Pain, Mild (Pain Scale 1-3) Albuterol/Ipratropium (Albuterol/Iprat 2.5/0.5mg 3 Ml Ampul.Neb) 3 ml INHALE RQ4H PRN PRN Reason: Shortness of Breath/Wheezing Albuterol/Ipratropium (Albuterol/Iprat 2.5/0.5mg 3 Ml Ampul.Neb) 3 ml INHALE RQ4H WHILE AWAKE [facility] Docusate Sodium (Docusate Sodium 100 Mg Capsule) 100 mg PO DAILY PRN PRN Reason: Constipation Methylprednisolone Sodium Succinate (Methylprednisolone Sod Succ 40 Mg/Ml Vial) 40 mg IVPUSH Q12H [facility] Ondansetron HCl (Ondansetron Hcl 4 Mg/2 Ml Vial) 4 mg IVPUSH Q8H PRN PRN Reason: Nausea and Vomiting Pharmacy Consult (Consult Rx Perform Med Rec) 1 each MISCELLANE ONCE PRN PRN Reason: Consult order Sodium Chloride (0.9 % Sodium Chloride Flush 3 Ml Syringe) 3 ml IVFLUSH QSHIFT [facility] Home Medications Medication Instructions Recorded Confirmed Last Taken Type blood sugar diagnostic #10 ea 05/08/20 10/20/21 History insulin glargine 100 unit/mL (3 45 unit subcut BEDTIME 05/08/20 10/21/21 10/20/21 History mL) subcutaneous pen insulin lispro 100 unit/mL See Protocol subcut TIDAC 05/08/20 10/21/21 10/20/21 History subcutaneous pen lancets 33 gauge #100 ea 05/08/20 10/20/21 History pen needle, diabetic 32 gauge x #50 ea 05/08/20 10/20/21 History 5/32 fluticasone propionate 50 1 spray intranasal DAILY 03/23/21 10/21/21 10/20/21 History mcg/actuation nasal spray,suspension cetirizine 10 mg tablet 1 tab PO DAILY 10/21/21 10/21/21 10/20/21 History Physical Exam Vital Signs and Narrative: Vital Signs: Last Vital Signs Temp 98.3 F 10/21/21 19:42 Pulse 122 H 10/21/21 19:42 Resp 22 H 10/21/21 19:42 BP 146/58 H 10/21/21 19:42 Pulse Ox 96 10/21/21 19:42 O2 Del Method 10/21/21 19:42 BMI result Body Mass Index 29.2 Const: General: cooperative and no acute distress Orientation/consciousness: patient oriented x3 Eyes: General: appearance normal, both eyes and all related structures Resp: Other: Decreased breath sounds Effort & Inspection: normal respiratory effort Cardio: Rate: regular rate Rhythm: regular rhythm GI: Palpation (GI): Soft to palpation Auscultation: normal bowel sounds Skin: General skin exam: no rashes or lesions noted Neuro: General: patient oriented x3 Cognition (Neuro): normal cognition Extrem: General: Yes normal to inspection and Yes no pedal edema Results Labs CBC and Chem 7: 10/21/21 17:30 10/21/21 17:30 Labs: Laboratory Results - last 24 hr 10/21/21 10/21/21 10/21/21 17:30 17:30 17:30 MCV 80.7 MCH 27.6 MCHC 34.2 RDW 12.5 Plt Count 218 MPV 10.5 Absolute Nucleated RBC 0.000 Nucleated RBC % (auto) 0.0 Anion Gap 16 Estim Creat Clear Calc 77.5 Estimated GFR > 60 Random Glucose 397 H* Calcium 9.1 Troponin I High Sens < 3.5 COVID-19 ([facility]) COVID-19 Clin Com S. pyogenes GrpA COREY 10/21/21 10/21/21 17:30 17:30 MCV MCH MCHC RDW Plt Count MPV Absolute Nucleated RBC Nucleated RBC % (auto) Anion Gap Estim Creat Clear Calc Estimated GFR Random Glucose Calcium Troponin I High Sens COVID-19 ([facility]) Negative COVID-19 Clin Com See Note S. pyogenes GrpA COREY Negative Imaging Radiologist's Impressions: Impressions Chest X-Ray 10/21/21 17:33 FINDINGS/IMPRESSION: * Minimal peribronchial cuffing, which can be seen in the setting of small airways process such as asthma or bronchitis. No focal consolidation. * No pneumothorax or pleural effusion. * Normal cardiomediastinal silhouette. Assessment and Plan (1) Asthma with exacerbation: Status: Acute Plan 46-year-old female with past medical history of asthma presents to the hospital with complaints of shortness of breath this was wheezing and cough found to have asthma exacerbation # acute asthma exacerbation - will treat with Solu-Medrol, DuoNeb p.r.n. as well as scheduled - no evidence of pneumonia - COVID negative - monitor respiratory status # diabetes - low-dose sliding scale insulin - diabetic diet - continue home glargine DVT prophylaxis: Early ambulation Quality Stroke Does the patient have a stroke diagnosis?: No VTE Prior VTE?: No VTE Risk Level:: Medical - low VTE Device Contraindication: Treatment Not Indicated VTE Drug Contraindication: Treatment Not Indicated
[2021-10-21 19:58] VITALS: PULSE 125; RESP 20; O2SAT 95
[2021-10-21 20:36] VITALS: PULSE 96; RESP 20; O2SAT 98
--- NOTE | 2021-10-21 21:45 | PHA.MEDREC ---
Pharmacy Consult ? Medication Reconciliation Pharmacy has completed the medication reconciliation. Luciara due end of October
[2021-10-22] VITALS (11 sets, daily range): BP systolic 106–121; BP diastolic 53–80; PULSE 87–118; RESP 14–18; TEMP 36.4–36.9; O2SAT 5–98
--- NOTE | 2021-10-22 04:19 | PC.NURSE ---
pt sleeping, remains on ekg monitor, all safety measures maintained
[2021-10-22 05:39] LABS: Glucose, Whole Blood 285 mg/dL (60-115)
[2021-10-22] MEDS: methylPREDNISolone Sod Succ 40 MG/ML VIAL IVPUSH ×2 (05:48→17:18)
[2021-10-22] MEDS: Acetaminophen 325 MG TABLET 650 MG PO (05:49)
[2021-10-22 06:53] LABS: Basophils Percent Auto 0.1 % (0-2); Hematocrit 38.8 % (37.0-47.0); Hemoglobin 13.5 g/dl (12.0-16.0); Imm Gran Abs Auto 0.04 X10*3/uL (0.00-0.03); Imm Gran Pct Auto 0.4 % (0.0-0.4); Lymphocytes Absolute Auto 0.7 X10*3/uL (1.2-4.9); Lymphocytes Percent Auto 6.5 % (20-40); MANUAL DIFF FLAG SCAN; Mean Corpuscular HGB Conc 34.8 g/dl (31.0-35.0); Mean Corpuscular Volume 80.5 fL (80.0-98.0); Mean Platelet Volume 10.5 fL (9.4-12.3); Monocytes Absolute Auto 0.2 X10*3/uL (0.1-1.2); Monocytes Percent Auto 1.7 % (2-11); Neutrophils Absolute Auto 10.1 x10*3/uL (2.0-8.3); Neutrophils Percent Auto 91.3 % (45-73); Platelet Count 245 X10*3/uL (160-400); Red Blood Count 4.82 X10*6/uL (4.20-5.50); Red Cell Distribution Width 12.7 % (11.0-16.0); SCAN SMEAR FLAG 1; White Blood Count 11.1 X10*3/uL (4.8-10.8)
[2021-10-22 07:42] LABS: Blood Urea Nitrogen 8 mg/dL (9-16); Calcium 9.4 mg/dL (8.4-10.2); Estimated Glomerular Filt Rate > 60; Glucose Random 307 mg/dL (60-115)
[2021-10-22] MEDS: Insulin Lispro 100 UNIT/ML 3 ML VIAL SUBCUT ×4 (07:44→22:11)
[2021-10-22] MEDS: Albuterol/Iprat 2.5/0.5MG 3 ML AMPUL.NEB INHALE ×4 (07:46→19:50)
[2021-10-22 07:53] LABS: Anion Gap 17 (12-20); Carbon Dioxide 20 mmol/L (22-29); Chloride 102 mmol/L (96-108); Sodium 134 mmol/L (135-145)
[2021-10-22 07:55] LABS: SLIDE REVIEW VERIFIED
[2021-10-22 08:06] LABS: Glucose, Whole Blood 271 mg/dL (60-115)
--- NOTE | 2021-10-22 09:55 | P.PNIM_ITS ---
Subjective Subjective Date of Service: 10/22/21 Interval History: Seen and examined this morning Follow-up for Reports significant amount of coughing overnight, with scant yellow phlegm Breathing improved somewhat Review of Systems Review of Systems: Yes all other systems are reviewed and are negative Constitutional Constitutional: Denies chills and Denies fever(s) Cardiovascular Cardiovascular: Denies chest pain Respiratory Respiratory: Reports cough and Reports pain with cough Gastrointestinal Gastrointestinal: Denies abdominal pain Physical Exam Vital Signs: Vital Signs: Last Vital Signs Temp 97.7 F 10/22/21 09:25 Pulse 100 10/22/21 09:25 Resp 18 10/22/21 09:25 BP 115/68 10/22/21 09:25 Pulse Ox 98 10/22/21 09:25 O2 Del Method 10/22/21 09:25 BMI result Body Mass Index 29.2 Const: General: cooperative, comfortable, no acute distress, alert and awake Nutritional Appearance: average body habitus Orientation/consciousness: patient oriented x3 Resp: Effort & Inspection: normal respiratory effort, able to speak in complete sentences and not tachypneic Auscultation: clear to auscultation bilaterally Cardio: Rate: regular rate Heart sounds: S1 normal heart sound present and S2 normal heart sound present GI: Inspection: No distended Palpation (GI): Soft to palpation and n ontender Neuro: General: patient oriented x3 Extrem: General: Yes no pedal edema Objective Data Active Medications Acetaminophen (Acetaminophen 325 Mg Tablet) 650 mg PO Q6H PRN PRN Reason: Pain, Mild (Pain Scale 1-3) Last Admin: 10/22/21 05:49 Dose: 650 mg Documented By: SIERRA Albuterol/Ipratropium (Albuterol/Iprat 2.5/0.5mg 3 Ml Ampul.Neb) 3 ml INHALE RQ4H PRN PRN Reason: Shortness of Breath/Wheezing Albuterol/Ipratropium (Albuterol/Iprat 2.5/0.5mg 3 Ml Ampul.Neb) 3 ml INHALE RQ4H WHILE AWAKE [facility] Last Admin: 10/22/21 07:46 Dose: 3 ml Documented By: ODALYS Benzonatate (Benzonatate 100 Mg Capsule) 200 mg PO TID PRN PRN Reason: cough Dextrose (Dextrose 50 % 25 Gm/50 Ml Syringe) 25 gm IVPUSH Q15M PRN; Protocol PRN Reason: per Hypoglycemia Standing Ord. Docusate Sodium (Docusate Sodium 100 Mg Capsule) 100 mg PO DAILY PRN PRN Reason: Constipation Glucose (Glucose Gel 15 Gm Gel..Gram.) 15 gm PO Q15M PRN; Protocol PRN Reason: per Hypoglycemia Standing Ord. Guaifenesin/Codeine Phosphate (Guaifen/Codeine Sf 200/20/10ml 10 Ml Liquid) 5 ml PO Q4H PRN PRN Reason: Cough Insulin Glargine (Insulin Glargine,Hum.Rec.Anlog 100 Unit/Ml 10 Ml Vial) 45 unit SUBCUT BEDTIME [facility] Last Admin: 10/22/21 03:02 Dose: Not Given Documented By: SIERRA Non-Admin Reason: See Note Insulin Human Lispro (Insulin Lispro 100 Unit/Ml 3 Ml Vial) 0.1 - 10 unit SUBCUT QIDACHS [facility]; Protocol Last Admin: 10/22/21 07:44 Dose: 6 unit Documented By: HERMAN Methylprednisolone Sodium Succinate (Methylprednisolone Sod Succ 40 Mg/Ml Vial) 40 mg IVPUSH Q12H [facility] Last Admin: 10/22/21 05:48 Dose: 40 mg Documented By: SIERRA Non-Formulary Medication (Roflumilast [Daliresp]) 250 mcg PO DAILY [facility] Ondansetron HCl (Ondansetron Hcl 4 Mg/2 Ml Vial) 4 mg IVPUSH Q8H PRN PRN Reason: Nausea and Vomiting Pharmacy Consult (Consult Rx Perform Med Rec) 1 each MISCELLANE ONCE PRN PRN Reason: Consult order Sodium Chloride (0.9 % Sodium Chloride Flush 3 Ml Syringe) 3 ml IVFLUSH QSHIFT [facility] Last Admin: 10/22/21 07:06 Dose: Not Given Documented By: HERMAN Non-Admin Reason: Med Not Available Labs CBC & Chem 7: 10/22/21 06:30 10/22/21 06:30 Labs: Laboratory Results - last 24 hr 10/21/21 10/21/21 10/21/21 17:30 17:30 17:30 MCV 80.7 MCH 27.6 MCHC 34.2 RDW 12.5 Plt Count 218 MPV 10.5 Immature Gran % (Auto) Neut % (Auto) Lymph % (Auto) Wells % (Auto) Eos % (Auto) Baso % (Auto) Lymph # (Auto) Wells # (Auto) Eos # (Auto) Baso # (Auto) Abs Immat Gran (auto) Absolute Neuts (auto) Absolute Nucleated RBC 0.000 Nucleated RBC % (auto) 0.0 Smear Tech's Comments Anion Gap 16 Estim Creat Clear Calc 77.5 Estimated GFR > 60 POC Glucose Random Glucose 397 H* Calcium 9.1 Troponin I High Sens < 3.5 COVID-19 ([facility]) COVID-19 Clin Com S. pyogenes GrpA CORE[facility] 10/21/21 10/21/21 10/22/21 17:30 17:30 05:35 MCV MCH MCHC RDW Plt Count MPV Immature Gran % (Auto) Neut % (Auto) Lymph % (Auto) Wells % (Auto) Eos % (Auto) Baso % (Auto) Lymph # (Auto) Wells # (Auto) Eos # (Auto) Baso # (Auto) Abs Immat Gran (auto) Absolute Neuts (auto) Absolute Nucleated RBC Nucleated RBC % (auto) Smear Tech's Comments Anion Gap Estim Creat Clear Calc Estimated GFR POC Glucose 285 H Random Glucose Calcium Troponin I High Sens COVID-19 ([facility]) Negative COVID-19 Clin Com See Note S. pyogenes GrpA COREY Negative 10/22/21 10/22/21 10/22/21 06:30 06:30 07:13 MCV 80.5 MCH 28.0 MCHC 34.8 RDW 12.7 Plt Count 245 MPV 10.5 Immature Gran % (Auto) 0.4 Neut % (Auto) 91.3 H Lymph % (Auto) 6.5 L Wells % (Auto) 1.7 L Eos % (Auto) 0.0 Baso % (Auto) 0.1 Lymph # (Auto) 0.7 L Wells # (Auto) 0.2 Eos # (Auto) 0.0 Baso # (Auto) 0.0 Abs Immat Gran (auto) 0.04 H Absolute Neuts (auto) 10.1 H Absolute Nucleated RBC 0.000 Nucleated RBC % (auto) 0.0 Smear Tech's Comments VERIFIED Anion Gap 17 Estim Creat Clear Calc 84.0 Estimated GFR > 60 POC Glucose 271 H Random Glucose 307 H Calcium 9.4 Troponin I High Sens COVID-19 ([facility]) COVID-19 Clin Com S. pyogenes GrpA COREY Assessment and Plan (1) Asthma with exacerbation: Status: Acute Plan 46-year-old female with past medical history of asthma presents to the hospital with complaints of shortness of breath this was wheezing and cough found to have asthma exacerbation acute asthma exacerbation - continue Solu-Medrol, DuoNeb p.r.n. as well as scheduled - no evidence of pneumonia - COVID negative - symptomatic support for cough diabetes - low-dose sliding scale insulin - diabetic diet - continue home glargine DVT prophylaxis: Early ambulation Attending - Dr. Spencer Requires ongoing inpatient hospitalization due to need for scheduled breathing treatments as well as IV steroids Quality Stroke Does the patient have a stroke diagnosis?: No VTE Prior VTE?: No VTE Risk Level:: Medical - low VTE Device Contraindication: Treatment Not Indicated VTE Drug Contraindication: Treatment Not Indicated
[2021-10-22] MEDS: guaiFEN/Codeine SF 200/20/10ML 10 ML LIQUID 5 ML PO ×3 (10:05→22:11)
--- NOTE | 2021-10-22 11:22 | MHC.CM.PN ---
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
[2021-10-22 11:26] LABS: Glucose, Whole Blood 321 mg/dL (60-115)
[2021-10-22] MEDS: 0.9 % Sodium Chloride Flush 3 ML SYRINGE IVFLUSH (17:19)
[2021-10-22 20:14] LABS: Glucose, Whole Blood 316 mg/dL (60-115)
[2021-10-22 20:54] LABS: Glucose, Whole Blood 375 mg/dL (60-115)
[2021-10-22] MEDS: Insulin Glargine,Hum.rec.anlog 100 UNIT/ML 10 ML VIAL 45 UNIT SUBCUT (22:12)
[2021-10-23] VITALS (10 sets, daily range): BP systolic 94–129; BP diastolic 57–81; PULSE 80–112; RESP 16–20; TEMP 36.1–37.1; O2SAT 93–97
[2021-10-23] MEDS: Albuterol/Iprat 2.5/0.5MG 3 ML AMPUL.NEB INHALE ×4 (05:19→20:47)
[2021-10-23] MEDS: methylPREDNISolone Sod Succ 40 MG/ML VIAL IVPUSH (06:00)
[2021-10-23] MEDS: guaiFEN/Codeine SF 200/20/10ML 10 ML LIQUID 5 ML PO ×3 (06:01→21:23)
[2021-10-23 07:24] LABS: Glucose, Whole Blood 292 mg/dL (60-115)
[2021-10-23] MEDS: Insulin Lispro 100 UNIT/ML 3 ML VIAL SUBCUT ×5 (08:03→21:22)
[2021-10-23] MEDS: Loratadine 10 MG TABLET PO (08:04)
[2021-10-23] MEDS: Benzonatate 100 MG CAPSULE 200 MG PO ×3 (08:08→21:23)
[2021-10-23] MEDS: Fluticasone Propionate Nasal 16 GM SPRAY 1 SPRAY NOSTRIL-B (08:08)
[2021-10-23] MEDS: 0.9 % Sodium Chloride Flush 3 ML SYRINGE IVFLUSH ×3 (08:08→21:28)
--- NOTE | 2021-10-23 10:50 | P.PNIM_ITS ---
Subjective Subjective Date of Service: 10/23/21 Interval History: Seen and examined this morning Follow-up for asthma exacerbation Patient does not feel well this morning frequent coughing, minimal phlegm production Review of Systems Review of Systems: Yes all other systems are reviewed and are negative Constitutional Constitutional: Denies chills and Denies fever(s) Cardiovascular Cardiovascular: Denies chest pain and Denies palpitations Respiratory Respiratory: Reports cough and Reports pain with cough Gastrointestinal Gastrointestinal: Denies abdominal pain, Denies diarrhea, Denies nausea and Denies vomiting Endocrine Endocrine: Denies palpitations Physical Exam Vital Signs: Vital Signs: Last Vital Signs Temp 97.1 F 10/23/21 07:28 Pulse 96 10/23/21 07:28 Resp 20 10/23/21 07:28 BP 116/79 10/23/21 07:28 Pulse Ox 97 10/23/21 07:28 O2 Del Method 10/23/21 04:00 BMI result Body Mass Index 29.2 Const: General: cooperative, comfortable, no acute distress, alert and awake Nutritional Appearance: average body habitus Orientation/consciousness: patient oriented x3 Resp: Effort & Inspection: normal respiratory effort, able to speak in complete sentences and not tachypneic Auscultation: clear to auscultation bilaterally Cardio: Rate: regular rate Heart sounds: S1 normal heart sound present and S2 normal heart sound present GI: Inspection: No distended Palpation (GI): Soft to palpation and nontender Neuro: General: patient oriented x3 Extrem: General: Yes no pedal edema Objective Data Active Medications Acetaminophen (Acetaminophen 325 Mg Tablet) 650 mg PO Q6H PRN PRN Reason: Pain, Mild (Pain Scale 1-3) Last Admin: 10/22/21 05:49 Dose: 650 mg Documented By: SIERRA Albuterol/Ipratropium (Albuterol/Iprat 2.5/0.5mg 3 Ml Ampul.Neb) 3 ml INHALE RQ4H PRN PRN Reason: Shortness of Breath/Wheezing Last Admin: 10/23/21 05:19 Dose: 3 ml Documented By: THERESA Albuterol/Ipratropium (Albuterol/Iprat 2.5/0.5mg 3 Ml Ampul.Neb) 3 ml INHALE RQ4H WHILE AWAKE [facility] Last Admin: 10/23/21 07:25 Dose: 3 ml Documented By: JERONIMO Benzocaine (Throat Lozenge, Medicated Lozenge) 1 lozenge MUCOUS MEM Q2H PRN PRN Reason: Sore Throat Benzonatate (Benzonatate 100 Mg Capsule) 200 mg PO TID PRN PRN Reason: cough Last Admin: 10/23/21 08:08 Dose: 200 mg Documented By: GIULIA Dextrose (Dextrose 50 % 25 Gm/50 Ml Syringe) 25 gm IVPUSH Q15M PRN; Protocol PRN Reason: per Hypoglycemia Standing Ord. Docusate Sodium (Docusate Sodium 100 Mg Capsule) 100 mg PO DAILY PRN PRN Reason: Constipation Fluticasone Propionate (Fluticasone Propionate Nasal 16 Gm [place]) 1 spray NOSTRIL-B DAILY [facility] Last Admin: 10/23/21 08:08 Dose: 1 spray Documented By: GIULIA Glucose (Glucose Gel 15 Gm Gel..Gram.) 15 gm PO Q15M PRN; Protocol PRN Reason: per Hypoglycemia Standing Ord. Guaifenesin/Codeine Phosphate (Guaifen/Codeine Sf 200/20/10ml 10 Ml Liquid) 5 ml PO Q4H PRN PRN Reason: Cough Last Admin: 10/23/21 06:01 Dose: 5 ml Documented By: SHILOH Insulin Glargine (Insulin Glargine,Hum.Rec.Anlog 100 Unit/Ml 10 Ml Vial) 45 u nit SUBCUT BEDTIME [facility] Last Admin: 10/22/21 22:12 Dose: 45 unit Documented By: CONSUELO Insulin Human Lispro (Insulin Lispro 100 Unit/Ml 3 Ml Vial) 0.1 - 10 unit SUBCUT QIDACHS [facility]; Protocol Last Admin: 10/23/21 08:03 Dose: 6 unit Documented By: GIULIA Loratadine (Loratadine 10 Mg Tablet) 10 mg PO DAILY [facility] Last Admin: 10/23/21 08:04 Dose: 10 mg Documented By: GIULIA Methylprednisolone Sodium Succinate (Methylprednisolone Sod Succ 40 Mg/Ml Vial) 40 mg IVPUSH Q12H [facility] Last Admin: 10/23/21 06:00 Dose: 40 mg Documented By: SHILOH Non-Formulary Medication (Roflumilast [Daliresp]) 250 mcg PO DAILY [facility] Ondansetron HCl (Ondansetron Hcl 4 Mg/2 Ml Vial) 4 mg IVPUSH Q8H PRN PRN Reason: Nausea and Vomiting Pharmacy Consult (Consult Rx Perform Med Rec) 1 each MISCELLANE ONCE PRN PRN Reason: Consult order Sodium Chloride (0.9 % Sodium Chloride Flush 3 Ml Syringe) 3 ml IVFLUSH QSHIFT [facility] Last Admin: 10/23/21 08:08 Dose: 3 ml Documented By: GIULIA Labs CBC & Chem 7: 10/22/21 06:30 10/22/21 06:30 Labs: Laboratory Results - last 24 hr 10/22/21 10/22/21 10/22/21 11:23 15:05 20:50 POC Glucose 321 H 316 H 375 H* 10/23/21 07:10 POC Glucose 292 H Assessment and Plan (1) Asthma with exacerbation: Status: Acute Plan 46-year-old female with past medical history of asthma presents to the hospital with complaints of shortness of breath this was wheezing and cough found to have asthma exacerbation acute asthma exacerbation On Fasenra at baseline no evidence of pneumonia, COVID negative - continue Solu-Medrol, DuoNeb p.r.n. as well as scheduled - symptomatic support for cough - continue home daliresp diabetes Continue Lantus - SSI, ADA diet DVT prophylaxis: Early ambulation Attending - Dr. Spencer Requires ongoing inpatient hospitalization due to need for scheduled breathing treatments as well as IV steroids Quality Stroke Does the patient have a stroke diagnosis?: No VTE Prior VTE?: No VTE Risk Level:: Medical - low VTE Device Contraindication: Treatment Not Indicated VTE Drug Contraindication: Treatment Not Indicated
[2021-10-23 11:59] LABS: Glucose, Whole Blood 415 mg/dL (60-115)
[2021-10-23] MEDS: Insulin Lispro 100 UNIT/ML 3 ML VIAL 6 UNIT SUBCUT (12:14)
[2021-10-23 16:21] LABS: Glucose, Whole Blood 325 mg/dL (60-115)
[2021-10-23] MEDS: Throat Lozenge, Medicated LOZENGE 1 LOZENGE MUCOUS MEM (16:30)
[2021-10-23 19:57] LABS: Glucose, Whole Blood 411 mg/dL (60-115)
[2021-10-23] MEDS: Insulin Glargine,Hum.rec.anlog 100 UNIT/ML 10 ML VIAL 45 UNIT SUBCUT (21:23)
[2021-10-24] MEDS: guaiFEN/Codeine SF 200/20/10ML 10 ML LIQUID 5 ML PO ×2 (04:51→10:40)
[2021-10-24] MEDS: Throat Lozenge, Medicated LOZENGE 1 LOZENGE MUCOUS MEM ×2 (04:58→12:23)
[2021-10-24 05:56] VITALS: BP 112/65; PULSE 89; RESP 16; TEMP 36.1; O2SAT 95
[2021-10-24 07:39] LABS: Glucose, Whole Blood 317 mg/dL (60-115)
[2021-10-24 07:43] VITALS: BP 132/67; PULSE 86; RESP 20; TEMP 36.3; O2SAT 96
[2021-10-24] MEDS: Albuterol/Iprat 2.5/0.5MG 3 ML AMPUL.NEB INHALE ×2 (07:45→11:52)
[2021-10-24 07:58] VITALS: PULSE 86; RESP 20; O2SAT 97
[2021-10-24] MEDS: Loratadine 10 MG TABLET PO (08:23)
[2021-10-24] MEDS: Insulin Lispro 100 UNIT/ML 3 ML VIAL SUBCUT ×2 (08:23→12:23)
[2021-10-24] MEDS: methylPREDNISolone Sod Succ 40 MG/ML VIAL IVPUSH (08:23)
[2021-10-24] MEDS: Benzonatate 100 MG CAPSULE 200 MG PO (08:23)
[2021-10-24] MEDS: Azithromycin 500 MG in 0.9 % Sodium Chloride 250 ML 125 MG IV (10:35)
[2021-10-24] MEDS: 0.9 % Sodium Chloride Flush 3 ML SYRINGE IVFLUSH (10:36)
[2021-10-24] MEDS: Fluticasone Propionate Nasal 16 GM SPRAY 1 SPRAY NOSTRIL-B (10:36)
--- NOTE | 2021-10-24 11:41 | PM.DS ---
DS: Providers Provider Date of Service: 10/24/21 Date of admission: 10/21/21 19:39 Date of discharge: 10/24/21 Primary care physician: Leonardo Melgar MD Attending physician on discharge: Clinton Spencer Discharging clinician: Francisca Cota DS: Diagnosis Discharge Diagnosis (1) Asthma with exacerbation: Status: Acute DS: Summary Hospital Course Hospital Course: From H&P on day of admission 46-year-old female with past medical history of diabetes, asthma presents to the hospital with complaints of shortness of breath as well as cough.? 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 She reports that her daughter had strep few days ago, she otherwise denies any recent travel, no sick contacts, no chest pain, no abdominal pain, no nausea or vomiting, no diarrhea constipation, no urinary symptoms and no lower extremity edema. On arrival to the ED patient hemodynamically stable with a heart rate of 129, respiratory rate of 24 Labs are significant for WBC count of 8.1, hemoglobin of 13.9, otherwise labs unremarkable, COVID-19 negative, strep negative Chest x-ray shows minimal peribronchial cuffing which can be seen in small airway process such as asthma, Patient received multiple rounds of 1 hour DuoNeb treatments, high dosed on Medrol, with no relief and has peak flow of 100 therefore will be admitted for further management of asthma exacerbation Asthma exacerbation - the patient was admitted to the hospital for management of acute asthma exacerbation and probable bronchitis. She was started on a scheduled and as needed bronchodilator therapy, IV Solu-Medrol. She was treated symptomatically for cough. She had no episodes of hypoxia and did not require any supplemental oxygen. She continues to have persistent cough but her breathing has improved. Chest x-ray showed no evidence of pneumonia, and she has remained afebrile. She is currently stable for discharge home. 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 She will be discharged home to complete course of steroids and antibiotics. Time Spent with Patient Time attestation: Total time spent providing and/or coordinating discharge services: Discharge coordination time: Greater than 30 minutes Quality: Safe Use of Opioids Does Pt have an Active Cancer Diagnosis on the Problem List?: No Quality: Stroke Does the patient have a stroke diagnosis?: No Physical Exam Vital Signs: Vital Signs: Last Vital Signs Temp 97.3 F 10/24/21 07:43 Pulse 86 10/24/21 07:58 Resp 20 10/24/21 07:58 BP 132/67 10/24/21 07:43 Pulse Ox 96 10/24/21 07:43 O2 Del Method 10/24/21 07:43 BMI result Body Mass Index 29.2 Const: General: cooperative, comfortable, no acute distress, alert and awake Nutritional Appearance: average body habitus Orientation/consciousness: patient oriented x3 Resp: Effort & Inspection: normal respiratory effort, able to speak in complete sentences and not tachypneic Auscultation: clear to auscultation bilaterally Cardio: Rate: regular rate Heart sounds: S1 normal heart sound present and S2 normal heart sound present GI: Inspection: No distended Palpation (GI): Soft to palpation and nontender Neuro: General: patient oriented x3 Extrem: General: Yes no pedal edema DS: Data Data Completed and Pending Labs on day of discharge: Laboratory Results - last 24 hr 10/23/21 10/23/21 10/23/21 11:53 16:15 19:52 POC Glucose 415 H* 325 H 411 H* 10/24/21 07:19 POC Glucose 317 H Discharge Plan Discharge Patient Disposition: Home, Self-Care Discharge Diagnosis: asthma exacerbation Referrals: Leonardo Melgar MD [Primary Care Provider] - 1 Week Discharge Medications: New benzonatate 100 mg capsule 100 mg PO TID PRN (Reason: cough) Qty: 15 0RF prednisone 10 mg tablet 40 mg PO DAILY 5 Days Qty: 20 0RF azithromycin 250 mg tablet 250 mg PO DAILY 4 Days Qty: 4 0RF Rx Instructions: start on day 2 of therapy Continued Fasenra Pen 30 mg/mL auto-injector See Rx Instructions subcut Q8W 28 Days Qty: 1 12RF Label Comments: Due end of October 2021 Rx Instructions: 30 mg subcutaneously every 4 weeks for the 1st 3 doses, then every 8 weeks subcut every 8 weeks; cetirizine 10 mg tablet 1 tab PO DAILY insulin lispro 100 unit/mL insulin pen See Protocol subcut TIDAC Qty: 15 0RF Protocol: Insulin Correction Scale Less than or equal to 110 ---- Give (units): 0 111 to 150 Give (units): 0 151 to 200 Give (units): 2 201 to 250 Give (units): 4 251 to 300 Give (units): 6 301 to 350 Give (units): 8 Greater than 350 Give (units): 10 Call MD if Blood Glucose > : 350 insulin glargine 100 unit/mL (3 mL) insulin pen 45 unit subcut BEDTIME Qty: 15 0RF budesonide 0.5 mg/2 mL suspension for nebulization 0.5 mg inhalation BID 30 Days Qty: 120 11RF ipratropium-albuterol 0.5 mg-3 mg(2.5 mg base)/3 mL solution for nebulization 3 ml inhalation QID 30 Days Qty: 360 11RF (DME) lancets 33 gauge misc See Rx Instructions .ROUTE QID Qty: 100 Rx Instructions: As directed (DME) pen needle, diabetic 32 gauge x 5/32 needle See Rx Instructions subcut QID Qty: 50 Rx Instructions: As directed (DME) blood sugar diagnostic Strip See Rx Instructions Not Applicable QID Qty: 10 Rx Instructions: As directed fluticasone propionate 50 mcg/actuation spray,suspension 1 spray intranasal DAILY albuterol sulfate 90 mcg/actuation HFA aerosol inhaler 2 inh inhalation Q6H PRN (Reason: shortness of breath or wheezing) 30 Days Qty: 18 12RF Daliresp 250 mcg tablet 250 mcg PO DAILY 30 Days Qty: 30 11RF Discharge Orders: Discharge Order (Routine); Ordered 10/24/21 Ordered By: Francisca Cota Activity on Discharge: As tolerated Stand Alone Forms: Patient Portal Discharge page Care Plan Goals: See below Health Concerns: asthma exacerbation bronchitis Plan of Treatment: Finish course of steroids and antibiotics as prescribed Continue home inhalers/breathing treatment Follow-up with pulmonology as scheduled Assessment: See discharge summary Discharge Date/Time: 10/24/21 13:47
--- NOTE | 2021-10-24 11:59 | MHC.CM.PN ---
Patient has been medically cleared for dc to home today, self care.
[2021-10-24 12:20] LABS: Glucose, Whole Blood 322 mg/dL (60-115)
== END 2021-10-24 13:47 | disposition home or self-care (01) ==
LOC: HO.ED 19:51 → HO.EDOVER 20:20 → HO.IMC 10-22 07:46
PROVIDERS: Admitting Provider Internal Medicine; Emergency Provider Emergency Medicine; PCP Internal Medicine; Visit Provider Physician Assistant Medical
DX: J45.901 Unspecified asthma with (acute) exacerbation (principal); R06.00 Dyspnea, unspecified; R05.9 Cough, unspecified; J02.9 Acute pharyngitis, unspecified; E11.9 Type 2 diabetes mellitus without complications; Z79.899 Other long term (current) drug therapy; Z20.822 Contact with and (suspected) exposure to COVID-19; Z79.4 Long term (current) use of insulin
CPT/HCPCS: 36415; 71045; 80048; 82947; 84484; 85025; 85027; 87635; 87651; 93005; 94640; 94644; 96365; 96366; 96367; 96375; 96376; 99219; 99285; J0456; J2920; J2930; J3475

== ENCOUNTER → 2021-11-02 13:30 | Outpatient (BNVA) | payer OTHER, SELFPAY | PROVIDERS: PCP Internal Medicine; Visit Provider Hospitalist | DX: J45.50 Severe persistent asthma, uncomplicated (principal); J30.9 Allergic rhinitis, unspecified | CPT/HCPCS: 99212 ==

== ENCOUNTER 2021-12-14 15:31 | Outpatient (REF) | payer OTHER, SELFPAY ==
[2021-12-14 16:12] LABS: Influenza A PCR NEGATIVE (Negative); Influenza B PCR NEGATIVE (Negative); Resp Syncy Virus RNA Qual PCR NEGATIVE (Negative); SARS COV2 PCR INHOUSE NEGATIVE (Negative)
== END 2021-12-14 15:32 | disposition home or self-care (01) ==
LOC: HO.LNP 15:31
PROVIDERS: Visit Provider Internal Medicine
DX: Z20.822 Contact with and (suspected) exposure to COVID-19 (principal); R51.9 Headache, unspecified
CPT/HCPCS: 0241U

== ENCOUNTER 2021-12-16 17:11 | Outpatient (REF) | payer OTHER, SELFPAY ==
[2021-12-16 17:29] LABS: MANUAL DIFF FLAG NO
[2021-12-16 17:52] LABS: Basophils Percent Auto 0.2 % (0-2); Hematocrit 42.9 % (37.0-47.0); Imm Gran Abs Auto 0.03 X10*3/uL (0.00-0.03); Imm Gran Pct Auto 0.5 % (0.0-0.4); Lymphocytes Absolute Auto 1.8 X10*3/uL (1.2-4.9); Lymphocytes Percent Auto 32.7 % (20-40); Mean Corpuscular Hemoglobin 27.8 pg (27.0-33.0); Mean Corpuscular Volume 79.6 fL (80.0-98.0); Mean Platelet Volume 11.1 fL (9.4-12.3); Monocytes Absolute Auto 0.4 X10*3/uL (0.1-1.2); Monocytes Percent Auto 6.5 % (2-11); Neutrophils Absolute Auto 3.3 x10*3/uL (2.0-8.3); Neutrophils Percent Auto 60.1 % (45-73); Platelet Count 246 X10*3/uL (160-400); Red Blood Count 5.39 X10*6/uL (4.20-5.50); Red Cell Distribution Width 12.3 % (11.0-16.0); White Blood Count 5.5 X10*3/uL (4.8-10.8)
[2021-12-16 17:59] LABS: Estimated Average Glucose 252 mg/dL; Hemoglobin A1c % 10.4 %
[2021-12-16 18:34] LABS: Erythrocyte Sedimentation Rate 9 MM/HR (0-20)
[2021-12-16 18:38] LABS: Free T4 (Free Thyroxine) 0.95 ng/dL (0.71-1.85); Thyroid Stimulating Hormone 1.56 uIU/mL (0.32-4.0)
[2021-12-16 18:41] LABS: Vitamin B12 544 pg/mL (200-900)
[2021-12-16 18:48] LABS: Alanine Aminotransferase 35 U/L (0-31); Albumin Level 4.3 g/dL (3.5-5.0); Alkaline Phosphatase 113 U/L (39-117); Anion Gap 17 (12-20); Aspartate Amino Transferase 20 U/L (5-31); Bilirubin Total 0.3 mg/dL (0.0-1.0); Blood Urea Nitrogen 15 mg/dL (9-16); C Reactive Protein 1.47 mg/dL (< or = 0.50); Calcium 9.5 mg/dL (8.4-10.2); Carbon Dioxide 23 mmol/L (22-29); Chloride 99 mmol/L (96-108); Estimated Glomerular Filt Rate > 60; Glucose Random 432 mg/dL (60-115); Potassium 4.2 mmol/L (3.3-5.1); Rheumatoid Factor < 15.0 IU/mL (<15.0); Sodium 135 mmol/L (135-145); Total Protein 7.5 g/dL (6.5-8.0)
[2021-12-20 15:11] LABS: Anti Nuclear Antibody Screen NEGATIVE (NEGATIVE)
[2021-12-21 17:07] LABS: Parvovirus B19 IgG 6.17; Parvovirus B19 IgM <0.9
== END 2021-12-16 17:12 | disposition home or self-care (01) ==
LOC: HO.LAB 17:11
PROVIDERS: PCP Internal Medicine; Visit Provider Internal Medicine
DX: E11.9 Type 2 diabetes mellitus without complications (principal); R53.83 Other fatigue; G43.909 Migraine, unspecified, not intractable, without status migrainosus; M79.10 Myalgia, unspecified site; Z79.4 Long term (current) use of insulin
CPT/HCPCS: 36415; 80053; 82607; 83036; 84439; 84443; 85025; 85652; 86038; 86039; 86140; 86431; 86747

== ENCOUNTER 2021-12-24 08:26 | Outpatient (REF) | payer OTHER, SELFPAY ==
--- NOTE | ~2021-12-24 | MM_ITS ---
EXAMINATION: MM SCREENING DIGITAL BREAST TOMOSYNTHESIS, BILATERAL CLINICAL INFORMATION: Screening. Asymptomatic. The lifetime risk of breast cancer based on the Tyrer-Cuzick Model is 7%. COMPARISON: Mammography: 11/27/2020, 02/27/2019, 07/18/2018, 08/10/2016 (baseline) TECHNIQUE: Digital breast tomosynthesis is performed in both the craniocaudal and mediolateral oblique views along with computer-aided detection (CAD). Synthesized 2D images are generated from the tomosynthesis. FINDINGS: There are scattered areas of fibroglandular density (ACR BI-RADS breast composition Category b). Breast tissue composition borders on heterogeneously dense. Parenchymal pattern is similar to prior exams. Smooth oval focal nodular asymmetry central right breast is stable from prior exams. There is no developing density or interval mass or architectural abnormality or abnormal calcifications in either breast. The axilla and skin contours are unremarkable. MM/MM tomosynthesis screening BI IMPRESSION: No mammographic evidence of malignancy. ASSESSMENT: BI-RADS 2: Benign RECOMMENDATION: Routine annual mammography screening. This patient's information was entered into a reminder system with a target due date for their next mammogram.
== END 2021-12-24 08:27 | disposition home or self-care (01) ==
LOC: HO.MAMMO 08:26
PROVIDERS: PCP Internal Medicine; Visit Provider Internal Medicine
DX: Z12.31 Encounter for screening mammogram for malignant neoplasm of breast (principal)
CPT/HCPCS: 77063; 77067

== ENCOUNTER → 2022-05-26 07:58 | Outpatient (BNVA) | payer OTHER, SELFPAY | PROVIDERS: PCP Internal Medicine; Visit Provider Nurse Practitioner Family | DX: M25.50 Pain in unspecified joint (principal) | CPT/HCPCS: 99202 ==

== ENCOUNTER → 2022-06-10 08:42 | Outpatient (BNVA) | payer OTHER, SELFPAY | PROVIDERS: PCP Internal Medicine; Visit Provider Internal Medicine Endocrinology, Diabetes & Metabolism | DX: E11.9 Type 2 diabetes mellitus without complications (principal); Z83.3 Family history of diabetes mellitus; Z79.4 Long term (current) use of insulin | CPT/HCPCS: 82947; 83036; 96372; 99212; J1815 ==

== ENCOUNTER 2022-06-23 10:00 | Outpatient (REF) | payer OTHER, SELFPAY ==
[2022-06-23 11:17] LABS: Cholesterol 189 mg/dL; HDL Cholesterol 47 mg/dL; LDL Cholesterol Calculated 122 mg/dl; Triglycerides 104 mg/dL
[2022-06-23 13:36] LABS: Creatinine Urine 188.06 mg/dL; Microalbum/Creatinine Ratio Ur 5.3 ug/mg cr
== END 2022-06-23 10:01 | disposition home or self-care (01) ==
LOC: HO.LAB 10:00
PROVIDERS: Internal Medicine Endocrinology, Diabetes & Metabolism; PCP Internal Medicine; Visit Provider Physician Assistant
DX: E11.9 Type 2 diabetes mellitus without complications (principal)
CPT/HCPCS: 36415; 80061; 82043

== ENCOUNTER → 2022-07-01 08:35 | Outpatient (BNVA) | payer OTHER, SELFPAY | PROVIDERS: PCP Internal Medicine; Visit Provider Internal Medicine Endocrinology, Diabetes & Metabolism | DX: E11.9 Type 2 diabetes mellitus without complications (principal) | CPT/HCPCS: 82947; 99212 ==

== ENCOUNTER → 2022-07-11 10:38 | Outpatient (BNVA) | payer OTHER, SELFPAY | PROVIDERS: PCP Internal Medicine; Visit Provider Dietitian, Registered | DX: E11.9 Type 2 diabetes mellitus without complications (principal) | CPT/HCPCS: 97802 ==

== ENCOUNTER 2022-07-27 15:00 | Outpatient (RCR) | payer OTHER, SELFPAY | END 2022-08-18 13:44 | disposition home or self-care (01) | LOC: HO.PT 15:00 | PROVIDERS: PCP Internal Medicine; Visit Provider Nurse Practitioner Family | DX: M54.2 Cervicalgia (principal) | CPT/HCPCS: 97110; 97140; 97161 ==

== ENCOUNTER → 2022-09-02 07:54 | Outpatient (BNVA) | payer OTHER, SELFPAY | PROVIDERS: PCP Internal Medicine; Visit Provider Registered Nurse Diabetes Educator | DX: E11.9 Type 2 diabetes mellitus without complications (principal) | CPT/HCPCS: 99211 ==

== ENCOUNTER 2022-12-30 09:27 | Outpatient (REF) | payer OTHER, SELFPAY | END 2022-12-30 09:28 | disposition home or self-care (01) | LOC: HO.MAMMO 09:27 | PROVIDERS: PCP Internal Medicine; Visit Provider Internal Medicine | DX: Z12.31 Encounter for screening mammogram for malignant neoplasm of breast (principal) | CPT/HCPCS: 77063; 77067 ==

== ENCOUNTER → 2022-12-30 09:30 | Outpatient (BNV) | payer OTHER, SELFPAY | PROVIDERS: PCP Internal Medicine; Visit Provider Radiology Diagnostic Radiology | DX: Z12.31 Encounter for screening mammogram for malignant neoplasm of breast (principal) | CPT/HCPCS: 77063; 77067 ==

== ENCOUNTER 2023-01-04 10:05 | Outpatient (REF) | payer OTHER, SELFPAY ==
[2023-01-04 11:02] LABS: MANUAL DIFF FLAG NO
[2023-01-04 11:22] LABS: Basophils Absolute Auto 0.1 X10*3/uL (0.0-0.2); Basophils Percent Auto 1.4 % (0-2); Eosinophils Absolute Auto 0.4 X10*3/uL (0.0-0.4); Eosinophils Percent Auto 8.5 % (0-4); Hematocrit 39.9 % (37.0-47.0); Hemoglobin 14.4 g/dl (12.0-16.0); Imm Gran Abs Auto 0.01 X10*3/uL (0.00-0.03); Imm Gran Pct Auto 0.2 % (0.0-0.4); Lymphocytes Absolute Auto 1.9 X10*3/uL (1.2-4.9); Lymphocytes Percent Auto 36.9 % (20-40); Mean Corpuscular HGB Conc 36.1 g/dl (31.0-35.0); Mean Corpuscular Hemoglobin 28.7 pg (27.0-33.0); Mean Corpuscular Volume 79.6 fL (80.0-98.0); Mean Platelet Volume 10.4 fL (9.4-12.3); Monocytes Absolute Auto 0.3 X10*3/uL (0.1-1.2); Monocytes Percent Auto 5.4 % (2-11); Neutrophils Absolute Auto 2.4 x10*3/uL (2.0-8.3); Neutrophils Percent Auto 47.6 % (45-73); Platelet Count 272 X10*3/uL (160-400); Red Blood Count 5.01 X10*6/uL (4.20-5.50); Red Cell Distribution Width 12.1 % (11.0-16.0)
[2023-01-04 12:14] LABS: Anion Gap 12 (12-20); Blood Urea Nitrogen 9 mg/dL (9-16); Calcium 9.5 mg/dL (8.4-10.2); Carbon Dioxide 27 mmol/L (22-29); Chloride 101 mmol/L (96-108); Estimated Glomerular Filt Rate > 60; Glucose Random 208 mg/dL (60-115); Potassium 3.9 mmol/L (3.3-5.1); Sodium 136 mmol/L (135-145)
[2023-01-04 12:38] LABS: Erythrocyte Sedimentation Rate 13 MM/HR (0-20)
[2023-01-06 03:39] LABS: Immunoglobulin E 15 kU/L (<OR=114)
[2023-01-06 11:33] LABS: TS Negative Control Passed; TS Panel A 0; TS Panel B 1; TS Positive Control Passed; TSpotTB Negative (Negative)
== END 2023-01-04 10:06 | disposition home or self-care (01) ==
LOC: HO.LAB 10:05
PROVIDERS: PCP Internal Medicine; Visit Provider Hospitalist
DX: Z11.1 Encounter for screening for respiratory tuberculosis (principal); J45.50 Severe persistent asthma, uncomplicated; J30.9 Allergic rhinitis, unspecified
CPT/HCPCS: 36415; 80048; 82785; 85025; 85652; 86003; 86481; 99212

== ENCOUNTER 2023-01-04 10:05 | Outpatient (AMB) | payer OTHER, SELFPAY ==
[2023-01-04 10:13] VITALS: PULSE 74; O2SAT 97; BMI 31.2
--- NOTE | 2023-01-04 10:13 | A.OFFVIS_ITS ---
Intake Vital Signs 01/04/23 10:13 Height 5 ft Weight 159 lb 13.362 oz BMI 31.2 Pulse 74 Pulse Source Pulse Oximeter Pulse Oximetry (%) 97 Oxygen Delivery Method Room Air Intake Visit Reasons: Asthma follow-up Chief Steward/Stewardess Required: No Allergies No Known Allergies Allergy (Verified 01/04/23 10:14) HPI HPI Comments History of Present Illness Details The patient is a 47-year-old woman with known severe persistent asthma was recently admitted to [facility] with an asthma exacerbation. She has had multiple exacerbations requiring hospitalizations and has been taking prednisone off and on to treat her significant wheezing. 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 When admitted her CBC with differential demonstrated 12% eosinophils which is more than 600 absolute eosinophils. She again responded well to prednisone and IV Solu-Medrol. We did adjust her medications. 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 Current the patient is taking 40 mg of prednisone and she is feeling better. We will start to taper the prednisone down at this time. She did get approved to start Fasenra. 07/28/2020 the patient has a telephone visit. Overall she has been recovering well from her recent exacerbation. She was out of work for several days. She has been back to work and she has been tolerating a respirator. Kevin luis eduardo for the last week she has noticed her symptoms are coming back with worsening shortness of breath. She is also complaining of significant hip discomfort. She has been dealing with this hip discomfort for some time. She denies any significant swelling of her legs. Although she does notice slight swelling over her ankle. Not sure which side. Mild in severity. She denies ever having blood clots in the past. She continues on aggressive respiratory regimen. She continues use her rescue inhaler multiple times a day. She is currently on fasenra. Initially medication was pretty effective in improving her respiratory status, although, her symptoms are getting worse again. 06/19/2020 the patient is here for pulmonary follow-up visit. She has been having a hard time with her breathing. Moderate to severe. Her asthma has been very active. She has required multiple courses of prednisone. She has a hard time working because was significant wheezing. Associated with significant coughing and shortness of breath along with chest tightness. She has been using budesonide to her nebulizer in addition to DuoNeb up to 4 times a day. This have been partially helpful. She had a great response to the Fasenra biologic therapy. However once she switched insurances she was not able to get it. Now she is having significant symptoms. Recently she did end up going to the ER and she was treated with Solu-Medrol. Prior to that she had been on prednisone as she failed outpatient therapy. She has significant eosinophilic asthma. Her eosinophils drastically decrease the upon starting prednisone. At this point the patient will have to start Fasenra again in order to restore stability with her asthma she can continue being able to function and work. 12/07/2020 the patient is here for sick visit. She has been having hard time with her breathing for the last 2-3 days. She did start prednisone at 60 mg and now tapering down. However she is only feeling worse. She also has pleuritic discomfort primarily in the right base. She denies fevers or chills. She did get tested for COVID and tested negative. She does have a cough and has a hard time producing any mucus. In the office she has very diminished initially. Therefore, she was given 2 treatments of Xopenex and also given Solu-Medrol. After the treatments she did open up some and she is ventilating better her right base. But she still very diminished. Therefore are going to treated for bronchopneumonia with levofloxacin and the patient will continue on the prednisone taper. Also provide her with cough syrup. In the meantime she is going to go for chest x-ray to address the right-sided pleuritic discomfort. 02/05/2021 the patient is here for a pulmonary follow-up visit. She continues to do well while on the Fasenra. The Fasenra has been very effective in beneficial. She did require prednisone back the end of the summer but otherwise has been doing well this time. She does complaint of worsening primarily at nighttime. Does keep her. Had center prescription for guaifenesin with codeine but she did not it. She is wondering affect his son that again. Otherwise she continues with her allergy therapy. 03/23/2021 the patient is here for sick visit. She has been having more difficulty will breathing. She has had significant chest tightness and wheezing. She did have some prednisone at home she started taking 40 mg. She was no better and she started taking up to 80 mg of prednisone. She has been using her nebulizer every 3-4 hours. She has only had partial resolution of the symptoms. She is concerned because she does have diabetes and her sugars tend to go up. She is due for the Fasenra next week. In the meantime now she has required prednisone a few times in the seems like the Fasenra is not holding her. We may need to consider switching biologic therapy. The patient will need Solu-Medrol today and she did receive 2 treatments with DuoNeb. No antibiotics at this point. The patient is no better she is going to call this week. 07/05/2021 the patient is here for a pulmonary follow-up visit. She continues to have daily symptoms requiring her short-acting beta agonist on a daily basis. She continues on her maintenance inhalers and also continues on the Fasenra every 2 months. She has not required any prednisone since last visit so which is reassuring. However, in view of still requiring daily rescue therapies the patient does not appear to be responding well to the Fasenra. We did talk about other alternatives including Dupixent and TSLP inhibitors. Will request additional blood work to see which would be the best medication for her. 08/20/2021 the patient is here for a pulmonary follow-up visit. Unfortunately she start prednisone again. She took 40 mg x 2 days because of her significant asthma symptoms. She has continued to take her biologic, Fasenra as prescribed. Has not provided significant improvement. We did talk about the other biologics. In meantime we did allergy testing which not very significant except for dogs which she has 1. she is not going to get rid of the dog at this time. The eosinophils a difficult to assess in view of her chronic prednisone use. Therefore, I will make a referral to allergies to the can further evaluate and consider allergy shots in addition to biologic therapy. In the meantime the patient does have evidence of chronic bronchitis and multiple exacerbations. I will request that she starts Daliresp at this time to see if we can decrease her prednisone frequency. 11/02/2021 The patient is here for a follow up visit. The patient has been having a hard time with her asthma. She was evaluated in the ER. CXR with peribronchial cuffing. She felt better after a prednisone taper.She does continue on the Fasenra injection. Initially Fasenra is very effective and now not so much. She was referred to Allergy and immunology. At this point she was maintained on antihistamines into her asthma is better controlled in order to have allergy testing. The patient may be a good candidate for Tezspire if she continues to be uncontrolled. She is considering giving her dog in to adoption due to the fact that her symptoms did get worse she got her dog. She is also contemplating waiting until her allergy testing to be sure since he is part of the family. 03/14/2022 the patient has a telephone visit today. Apparently she was in usual state health until recently when she came back from [place]. The patient noticed she had been coughing more on her flight back to the [facility]. Moderate severity. It was a dry hacky cough per then ultimately started developing some chills and worsening cough now more congested. She did test positive for COVID today. Positive sick contacts. The patient is now quarantine at home. Patient does have significant respiratory disease in therefore I did recommend starting packs Flovent. Denies any significant wheezing at this time. She is using her nebulizer. She knows that there is a relative contraindication for the use of prednisone 1 on Paxil over. Therefore will start her on back slow vent in addition to doxycycline to treat for postviral bacterial infections. 03/22/2022 the patient has a telephone visit today. She did take the PACS Flovent and she completed the course. She also took the doxycycline. However, she continues to complaint of chest tightness and productive cough. The mucus is greenish in color. It is excessive. She has been using nebulizer treatments at least 4 times a day. She is currently not using any prednisone. She does complaint of significant chest tightness. Denies any further so fevers or chills. Will go ahead and treat her with a course of prednisone. Also she can go ahead and start levofloxacin as a stronger antibiotic. However, she needs to monitor closely for tendinitis. She should also take probiotics. 01/04/2023 the patient is here for a pulmonary follow-up visit. Since we last spoke the patient took a hiatus from most of her medications. She felt like she was being overmedicated. Therefore she decided to hold a lot of her respiratory medications. Actually her breathing initially was not too bad but she is been noticing worsening worsening symptoms lately. Recently she had to take prednisone for an exacerbation of her asthma. Partly due to a viral syndrome. She is now better and off the prednisone. The patient did not do well on the Trelegy inhaler. Was causing to have increased coughing increased chest tightness. Therefore will hold off on powdered inhalers for her. I do believe that she will do better on Symbicort. In addition to that we can always consider adding Spiriva to the Symbicort to provide her with the optimum respiratory therapy. In addition to that she has been taking the Daliresp. The patient does have a history of diabetes and therefore needs to be monitored closely her sugars and avoid prednisone because of that. Hopefully with the Daliresp we can avoid that. She is also been responding well to Fasenra injections. Will go ahead and request blood work to assess his allergies and IgE levels and eosinophil levels in order to further address which biologic Chelita's will suit her. It may be the case that she just continue with the Fasenra. No recent imaging studies to review. Will follow-up in 3-4 months. [facility] Medical History (Updated 01/04/23 @ 22:18 by Chad Sexton MD) Bronchopneumonia Chronic allergic rhinitis Asthma Lichen sclerosus of female genitalia Diabetes mellitus Surgical History History of nasal surgery (~1995) History of tubal ligation (~2013) Family History Maternal Grandmother Colon cancer Social History Household Members: Family Housing: House Do you presently have visiting nurse or other home services: No Alcohol intake: current Alcohol intake frequency: a few times a month Patient Tobacco Use Status: Never used Tobacco e-Cigarette/Vaping Use: Never Used service: No Current occupational status: employed 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 Sexual orientation: Straight/Heterosexual Female Reproductive History Menstrual Age of Menarche: 13 Review of Systems Const Denies chills, Denies fatigue, Denies malaise and Denies night sweats ENT Denies change in voice, Denies lip swelling, Denies mouth pain, Reports nasal congestion, Reports nasal discharge and Denies tongue swelling Card Denies chest pain, Denies dyspnea and Denies dyspnea on exertion Resp Denies change in phlegm color, Denies chest congestion, Reports cough, Denies hemoptysis, Reports excessive phlegm production, Denies pain on inspiration, Denies pain with cough, Denies dyspnea, Denies dyspnea on exertion and Reports wheezing GI Denies abdominal pain Musc Denies no additional complaints Neuro Denies Neuro-related abnormal movements Psych Denies no additional complaints Endo Denies fatigue Zain/Lymph Denies easy bleeding and Denies lymphadenopathy Aller/Immun Denies lip swelling, Denies tongue swelling and Reports wheezing Physical Exam Vital Signs: Last Vital Signs Pulse 74 01/04/23 10:13 Pulse Ox 97 01/04/23 10:13 Oxygen Delivery Method Room Air 01/04/23 10:13 BMI result Body Mass Index 31.2 Const General: cooperative Orientation/consciousness: patient oriented x3 Neck Neck: Yes normal visual inspection, Yes full ROM and Yes no lymphadenopathy Chest Chest palpation & inspection: normal inspection of the chest Resp Auscultation: wheezes and diminished lung sounds Cardio Rate: regular rate Rhythm: regular rhythm Heart sounds: S1 normal heart sound present and S2 normal heart sound present GI Palpation (GI): Soft to palpation and nontender Auscultation: normal bowel sounds General: Yes no CVA tenderness Back/Spine/Pelvis Back: no CVA tenderness Skin General skin exam: rashes and/or lesions noted Neuro General: patient oriented x3 Assessment & Plan Assessment & Plan (1) Asthma: Code(s): J45.909 - Unspecified asthma, uncomplicated Qualifiers: Asthma complication type: uncomplicated Asthma persistence: persistent Asthma severity: severe Qualified Code(s): J45.50 - Severe persistent asthma, uncomplicated (2) Chronic allergic rhinitis: Code(s): J30.9 - Allergic rhinitis, unspecified Plan start Symbicort KEREN as needed continue Daliresp Bloodwork / allergy testing Likely will continue Fasenra [id number] Follow-up in 4-6 months Orders: Orders Rast Allergen Today J30.9 - Allergic rhinitis, unspecified, J45.909 - Unspecified asthma, uncomplicated Basic Metabolic Panel Today J30.9 - Allergic rhinitis, unspecified, J45.909 - Unspecified asthma, uncomplicated Erythrocyte Sedimentation Rate Today J30.9 - Allergic rhinitis, unspecified, J45.909 - Unspecified asthma, uncomplicated Immunoglobulin E Today J30.9 - Allergic rhinitis, unspecified, J45.909 - Unspecified asthma, uncomplicated T Spot TB Today J30.9 - Allergic rhinitis, unspecified, J45.909 - Unspecified asthma, uncomplicated Complete Blood Count Auto Diff Today J30.9 - Allergic rhinitis, unspecified, J45.909 - Unspecified asthma, uncomplicated Medications: New budesonide-formoterol 160-4.5 mcg/actuation (Symbicort) 2 puffs inhalation BID 30 days 10.2 grams 11RF J44.9 - Chronic obstructive pulmonary disease, unspecified azithromycin 500 mg PO DAILY 5 days 5 tabs 0RF Refilled roflumilast (Daliresp) 500 mcg PO DAILY 30 days 30 tabs 6RF Coding Level of Care Code Est Pt Level 4 (42911) Diagnoses Severe persistent asthma without complication J45.50 Asthma complication type: uncomplicated Asthma persistence: persistent Asthma severity: severe Chronic allergic rhinitis J30.9 Time Spent (min) 17
== END 2023-01-04 10:40 | disposition home or self-care (01) ==
PROVIDERS: PCP Internal Medicine; Visit Provider Hospitalist
DX: J45.50 Severe persistent asthma, uncomplicated (principal); J30.9 Allergic rhinitis, unspecified
CPT/HCPCS: 99214

== ENCOUNTER 2023-03-21 13:38 | Outpatient (AMB) | payer MEDICAID, SELFPAY ==
[2023-03-21 13:46] VITALS: BP 118/70; PULSE 100; O2SAT 97
--- NOTE | 2023-03-21 13:46 | MHC.OFFVIS ---
Intake Vital Signs 03/21/23 13:46 Weight 161 lb BP 118/70 Blood Pressure Location Lt brachial Position Sitting Pulse 100 Pulse Source Pulse Oximeter Pulse Oximetry (%) 97 Oxygen Delivery Method Room Air Intake Visit Reasons: asthma/productive cough Bioengineer Required: No Senior Qualitative Researcher: Senior Qualitative Researcher offered & declined Accompanied by: Self / Same As Patient Allergies No Known Allergies Allergy (Verified 03/21/23 13:51) Medication List - Last Reconciled 03/21/23 by Aida Schwartz LPN acetaminophen (Tylenol Extra Strength) 500 mg PO Q6H PRN albuterol sulfate 90 mcg/actuation (Ventolin HFA) 2 puffs PO Q6H PRN atorvastatin 10 mg PO DAILY benzonatate 200 mg PO BID PRN 30 days blood sugar diagnostic As directed blood sugar diagnostic (FreeStyle Lite Strips) As directed- checks 4 X/day blood-glucose meter (FreeStyle Lite Meter kit) As directed checks 4 X/day blood-glucose sensor (O' Doughty'syle Jeffrey 3 Sensor device) As directed budesonide 0.5 mg (2 mL) inhalation BID 30 days budesonide-formoterol 160-4.5 mcg/actuation (Symbicort) 2 puffs inhalation BID 30 days cetirizine 1 tab PO DAILY codeine-guaifenesin 10-100 mg/5 mL 10 mL PO Q6H PRN 10 days cyclobenzaprine 10 mg PO TID fluticasone propionate 50 mcg/actuation 1 spray intranasal DAILY PRN ibuprofen (Advil) 200 mg PO Q6H PRN insulin glargine U-300 conc (Toujeo Max U-300 SoloStar) 40 units (0.1333 mL) subcut DAILY insulin lispro (Humalog KwikPen (U-100) Insulin) 5 units (0.05 mL) subcut TID ipratropium-albuterol 0.5 mg-3 mg(2.5 mg base)/3 mL 3 mL inhalation QID 30 days lancets As directed checks 4 X/day lancets (FreeStyle Lancets) As directed lidocaine 5% 1 patch topical DAILY nebulizers As directed pen needle, diabetic As directed roflumilast (Daliresp) 500 mcg PO DAILY 30 days HPI asthma/productive cough HPI Details Cindy is a pleasnt 48 year old female, never smoker, followed for asthma and allergic rhinitis. At baseline, she is moderately controlled on Symbicort, daliresp, duoneb and albuterol MDI. Today she presents for an acute visit. She reports productive cough with tenacious green sputum for the past week with associated hoarseness, dyspnea and chest congestion. She denies fevers or chills. She has been using her duoneb q 2-3 hours with partial relief. She does note that she has had contact with sick family members and also has construction being performed at house, triggering symptoms. She denies wheezing. Of note, she has been without fasenra for a few months and is interested in restarting. [facility] Medical History (Updated 01/04/23 @ 22:18 by Chad Sexton MD) Bronchopneumonia Chronic allergic rhinitis Asthma Lichen sclerosus of female genitalia Diabetes mellitus Surgical History History of nasal surgery (~1995) History of tubal ligation (~2013) Family History Maternal Grandmother Colon cancer Social History (Updated 03/21/23 @ 13:56 by Aida Schwartz LPN) Household Members: Family Housing: House Do you presently have visiting nurse or other home services: No Alcohol intake: current Alcohol intake frequency: a few times a month Patient Tobacco Use Status: Never used Tobacco Smoked in Last 30 Days: No e-Cigarette/Vaping Use: Never Used service: No Current occupational status: employed 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 Sexual orientation: Straight/Heterosexual Female Reproductive History Menstrual Age of Menarche: 13 Review of Systems Const Denies chills, Denies excessive sweating, Denies fever(s), Denies headache(s) and Denies night sweats Eyes Denies dry eyes, Denies irritation and Denies itchy eyes ENT Reports Normal hearing present and Denies headache(s) Card Denies chest pain, Denies chest pain at rest, Denies chest pain with activity, Denies claudication, Denies leg edema, Denies orthopnea and Denies paroxysmal nocturnal dyspnea Resp Denies excessive phlegm production, Denies pain on inspiration, Denies pain with cough, Denies stridor and Denies wheezing Musc Denies myalgias Neuro Reports Normal hearing present and Denies headache(s) Endo Denies excessive sweating Zain/Lymph Denies lymphadenopathy Aller/Immun Denies itchy eyes, Denies seasonal rhinorrhea and Denies wheezing Physical Exam Vital Signs: Last Vital Signs Pulse 100 03/21/23 13:46 BP 118/70 03/21/23 13:46 Pulse Ox 97 03/21/23 13:46 Oxygen Delivery Method Room Air 03/21/23 13:46 Const General: cooperative, healthy appearing, comfortable, no acute distress, well developed and alert Orientation/consciousness: patient oriented x3 Limitations: no limitations HEENT Head: Yes normal to inspection, Yes normocephalic and Yes atraumatic Ears: hearing grossly normal bilaterally and external ears normal Eyes General: appearance normal, both eyes and all related structures Eyelids: Yes eyelids normal Sclerae: sclerae normal EOM: EOMs intact bilaterally Neck Neck: Yes normal visual inspection and Yes no lymphadenopathy Lymphatic: no lymphadenopathy noted Chest Chest palpation & inspection: normal inspection of the chest Resp Other: dimished lung sounds Effort & Inspection: normal respiratory effort, able to speak in complete sentences, no audible wheezes, no cough, no stridor, not tachypneic, no tripod positioning and no use of accessory muscles Cardio Jugular venous distension: no JVD Rate: regular rate Rhythm: regular rhythm Skin Other: warm, dry General skin exam: no rashes or lesions noted Neuro General: patient oriented x3 Cranial nerves: Yes Normal hearing present Cognition (Neuro): normal cognition Gait exam (Neuro): Normal gait present Extrem General: Yes normal to inspection, Yes capillary refill normal, Yes no clubbing, cyanosis or edema and Yes no pedal edema Psych Appearance: grossly normal and well kempt Speech and movement: Normal speech and movement present and Clear speech present Affect: normal affect Attitude: cooperative Thought process: Normal thought process present Thought content: Normal thought content present Insight: Good insight present (Psych) Judgement: Good judgement present (Psych) Assessment & Plan Assessment & Plan (1) Asthma: Code(s): J45.909 - Unspecified asthma, uncomplicated Qualifiers: Asthma severity: severe Asthma persistence: persistent Asthma complication type: uncomplicated Qualified Code(s): J45.50 - Severe persistent asthma, uncomplicated (2) Chronic allergic rhinitis: Code(s): J30.9 - Allergic rhinitis, unspecified Plan Will treat bronchitic symptoms with azithromycin. Patient aware if symptoms do not improve to contact office and seek emergent care if they worsen. All questions were answered and patient is in agreement of plan. Will follow up for regularly scheduled appointment with Dr. Sexton or sooner if needed. Medications: New azithromycin For 250 mg dose pack: take 500 mg today (day 1), then 250 mg for 4 days (days 2-5) PO 6 tabs 0RF Refilled codeine-guaifenesin 10-100 mg/5 mL 10 mL PO Q6H 10 days PRN 300 mL 0RF cough Coding Level of Care Code Est Pt Level 3 (05853) Diagnoses Severe persistent asthma without complication J45.50 Asthma severity: severe Asthma persistence: persistent Asthma complication type: uncomplicated Chronic allergic rhinitis J30.9
== END 2023-03-21 14:32 | disposition home or self-care (01) ==
PROVIDERS: PCP Internal Medicine; Visit Provider Nurse Practitioner Family
DX: J45.50 Severe persistent asthma, uncomplicated (principal); J30.9 Allergic rhinitis, unspecified
CPT/HCPCS: 99213

== ENCOUNTER → 2023-03-21 13:38 | Outpatient (BNVA) | payer MEDICAID, SELFPAY | PROVIDERS: PCP Internal Medicine; Visit Provider Nurse Practitioner Family | DX: J45.50 Severe persistent asthma, uncomplicated (principal); J30.9 Allergic rhinitis, unspecified | CPT/HCPCS: 99212 ==

== ENCOUNTER 2023-04-14 08:57 | Outpatient (AMB) | payer MEDICAID, SELFPAY ==
[2023-04-14 09:02] VITALS: BP 110/60; PULSE 87; O2SAT 98; BMI 31.2
--- NOTE | 2023-04-14 09:02 | MHC.OFFVIS ---
Intake Vital Signs 04/14/23 09:02 Height 5 ft Weight 160 lb BMI 31.2 BP 110/60 Blood Pressure Location Lt brachial Position Sitting Pulse 87 Pulse Source Pulse Oximeter Pulse Oximetry (%) 98 Oxygen Delivery Method Room Air Intake Visit Reasons: Asthma follow-up Database Technician Required: No Allergies No Known Allergies Allergy (Verified 04/14/23 09:04) HPI HPI Comments History of Present Illness Details The patient is a 48-year-old woman with known severe persistent asthma was recently admitted to [facility] with an asthma exacerbation. She has had multiple exacerbations requiring hospitalizations and has been taking prednisone off and on to treat her significant wheezing. 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 Apparently the patient was packing as she is moving was exposed to significant dust and resulted in her significant worsening symptoms requiring the admission to [place]. When admitted her CBC with differential demonstrated 12% eosinophils which is more than 600 absolute eosinophils. She again responded well to prednisone and IV Solu-Medrol. We did adjust her medications. 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 Current the patient is taking 40 mg of prednisone and she is feeling better. We will start to taper the prednisone down at this time. She did get approved to start Fasenra. 11/02/2021 The patient is here for a follow up visit. The patient has been having a hard time with her asthma. She was evaluated in the ER. CXR with peribronchial cuffing. She felt better after a prednisone taper.She does continue on the Fasenra injection. Initially Fasenra is very effective and now not so much. She was referred to Allergy and immunology. At this point she was maintained on antihistamines into her asthma is better controlled in order to have allergy testing. The patient may be a good candidate for Tezspire if she continues to be uncontrolled. She is considering giving her dog in to adoption due to the fact that her symptoms did get worse she got her dog. She is also contemplating waiting until her allergy testing to be sure since he is part of the family. 03/14/2022 the patient has a telephone visit today. Apparently she was in usual state health until recently when she came back from [place]. The patient noticed she had been coughing more on her flight back to the [facility]. Moderate severity. It was a dry hacky cough per then ultimately started developing some chills and worsening cough now more congested. She did test positive for COVID today. Positive sick contacts. The patient is now quarantine at home. Patient does have significant respiratory disease in therefore I did recommend starting packs Flovent. Denies any significant wheezing at this time. She is using her nebulizer. She knows that there is a relative contraindication for the use of prednisone 1 on Paxil over. Therefore will start her on back slow vent in addition to doxycycline to treat for postviral bacterial infections. 03/22/2022 the patient has a telephone visit today. She did take the PACS Flovent and she completed the course. She also took the doxycycline. However, she continues to complaint of chest tightness and productive cough. The mucus is greenish in color. It is excessive. She has been using nebulizer treatments at least 4 times a day. She is currently not using any prednisone. She does complaint of significant chest tightness. Denies any further so fevers or chills. Will go ahead and treat her with a course of prednisone. Also she can go ahead and start levofloxacin as a stronger antibiotic. However, she needs to monitor closely for tendinitis. She should also take probiotics. 01/04/2023 the patient is here for a pulmonary follow-up visit. Since we last spoke the patient took a hiatus from most of her medications. She felt like she was being overmedicated. Therefore she decided to hold a lot of her respiratory medications. Actually her breathing initially was not too bad but she is been noticing worsening worsening symptoms lately. Recently she had to take prednisone for an exacerbation of her asthma. Partly due to a viral syndrome. She is now better and off the prednisone. The patient did not do well on the Trelegy inhaler. Was causing to have increased coughing increased chest tightness. Therefore will hold off on powdered inhalers for her. I do believe that she will do better on Symbicort. In addition to that we can always consider adding Spiriva to the Symbicort to provide her with the optimum respiratory therapy. In addition to that she has been taking the Daliresp. The patient does have a history of diabetes and therefore needs to be monitored closely her sugars and avoid prednisone because of that. Hopefully with the Daliresp we can avoid that. She is also been responding well to Fasenra injections. Will go ahead and request blood work to assess his allergies and IgE levels and eosinophil levels in order to further address which biologic Chelita's will suit her. It may be the case that she just continue with the Fasenra. No recent imaging studies to review. Will follow-up in 3-4 months. 04/29/2023 the patient is here for a pulmonary follow-up visit. Back in March she was evaluated for bronchitis and an asthma exacerbation. Now again she is starting to develop worsening cough shortness of breath and chest tightness. Moderate severity. She has been using inhalers and also her rescue therapy. Has been using her nebulizer once or twice a day. It Daliresp has been helpful for her. We did look at blood work back in December in her eosinophils were already rising up to 8.5% with an absolute count of 400. The patient did very good on Fasenra injections in the past. Her IgE was normal so therefore Fasenra will be the best option for her. In the meantime the patient is productive of sputum. Yellowish in color. Will go ahead and treat her with doxycycline again. If the patient is no better she should start the prednisone again as well. [facility] Medical History (Updated 04/14/23 @ 12:19 by Chad Sexton MD) Bronchopneumonia Chronic allergic rhinitis Asthma Lichen sclerosus of female genitalia Diabetes mellitus Surgical History History of nasal surgery (~1995) History of tubal ligation (~2013) Family History Maternal Grandmother Colon cancer Social History (Updated 03/21/23 @ 13:56 by Aida Schwartz LPN) Household Members: Family Housing: House Do you presently have visiting nurse or other home services: No Alcohol intake: current Alcohol intake frequency: a few times a month Patient Tobacco Use Status: Never used Tobacco e-Cigarette/Vaping Use: Never Used service: No Current occupational status: employed 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 Sexual orientation: Straight/Heterosexual Female Reproductive History Menstrual Age of Menarche: 13 Review of Systems Const Denies chills, Denies fatigue, Denies malaise and Denies night sweats ENT Denies change in voice, Denies lip swelling, Denies mouth pain, Reports nasal congestion, Reports nasal discharge and Denies tongue swelling Card Denies chest pain, Denies dyspnea and Denies dyspnea on exertion Resp Denies change in phlegm color, Reports chest congestion, Reports cough, Denies hemoptysis, Reports excessive phlegm production, Denies pain on inspiration, Denies pain with cough, Denies dyspnea, Denies dyspnea on exertion and Reports wheezing GI Denies abdominal pain Musc Denies no additional complaints Neuro Denies Neuro-related abnormal movements Psych Denies no additional complaints Endo Denies fatigue Zain/Lymph Denies easy bleeding and Denies lymphadenopathy Aller/Immun Denies lip swelling, Denies tongue swelling and Reports wheezing Physical Exam Vital Signs: Last Vital Signs Pulse 87 04/14/23 09:02 BP 110/60 04/14/23 09:02 Pulse Ox 98 04/14/23 09:02 Oxygen Delivery Method Room Air 04/14/23 09:02 BMI result Body Mass Index 31.2 Const General: cooperative Orientation/consciousness: patient oriented x3 Neck Neck: Yes normal visual inspection, Yes full ROM and Yes no lymphadenopathy Chest Chest palpation & inspection: normal inspection of the chest Resp Auscultation: wheezes and diminished lung sounds Cardio Rate: regular rate Rhythm: regular rhythm Heart sounds: S1 normal heart sound present and S2 normal heart sound present GI Palpation (GI): Soft to palpation and nontender Auscultation: normal bowel sounds General: Yes no CVA tenderness Back/Spine/Pelvis Back: no CVA tenderness Skin General skin exam: rashes and/or lesions noted Neuro General: patient oriented x3 Assessment & Plan Assessment & Plan (1) Asthma: Code(s): J45.909 - Unspecified asthma, uncomplicated Qualifiers: Asthma complication type: with acute exacerbation Asthma persistence: persistent Asthma severity: severe Qualified Code(s): J45.51 - Severe persistent asthma with (acute) exacerbation (2) Chronic allergic rhinitis: Code(s): J30.9 - Allergic rhinitis, unspecified (3) Bronchitis: Code(s): J40 - Bronchitis, not specified as acute or chronic Plan continue Symbicort KEREN as needed continue Daliresp restart Fasenra [id number] start Prednisone if no better start doxycycline sputum cx if no better Follow-up in 3-4 months Orders: Orders Sputum Cult + Gram stain Today J40 - Bronchitis, not specified as acute or chronic Medications: New doxycycline monohydrate 100 mg PO BID 14 days 28 tabs 0RF prednisone PO daily; Take 6 tabs daily x 3 days, then 5 tabs x 3 days, then 4 tabs x 3 days, then 3 tabs x 3 days, then 2 tabs daily x 3 days, then 1 tab x 3 days to complete. 18 days 63 tabs 0RF prednisone PO daily; Take 6 tabs daily x 3 days, then 5 tabs x 3 days, then 4 tabs x 3 days, then 3 tabs x 3 days, then 2 tabs daily x 3 days, then 1 tab x 3 days to complete. 18 days 63 tabs 0RF Coding Level of Care Code Est Pt Level 4 (13232) Diagnoses Severe persistent asthma with acute exacerbation J45.51 Asthma complication type: with acute exacerbation Asthma persistence: persistent Asthma severity: severe Chronic allergic rhinitis J30.9 Bronchitis J40 Time Spent (min) 16
== END 2023-04-14 09:24 | disposition home or self-care (01) ==
PROVIDERS: PCP Internal Medicine; Visit Provider Hospitalist
DX: J45.51 Severe persistent asthma with (acute) exacerbation (principal); J30.9 Allergic rhinitis, unspecified; J40 Bronchitis, not specified as acute or chronic
CPT/HCPCS: 99214

== ENCOUNTER → 2023-04-14 08:57 | Outpatient (BNVA) | payer MEDICAID, SELFPAY | PROVIDERS: PCP Internal Medicine; Visit Provider Hospitalist | DX: J45.51 Severe persistent asthma with (acute) exacerbation (principal); J30.9 Allergic rhinitis, unspecified; J40 Bronchitis, not specified as acute or chronic | CPT/HCPCS: 99212 ==

== ENCOUNTER 2023-07-03 20:52 | Observation (INO) | payer MEDICAID, SELFPAY ==
--- NOTE | ~2023-07-03 | XR_ITS ---
EXAMINATION: XR CHEST CLINICAL INFORMATION: Shortness of breath. COMPARISON: None available. TECHNIQUE: Frontal view of the chest was obtained. FINDINGS: No significant abnormality is noted involving the heart, lungs, mediastinum, bony thorax or soft tissues. XR/XR chest 1V IMPRESSION: Unremarkable chest examination.
[2023-07-03 20:56] VITALS: BP 147/93; PULSE 126; RESP 16; TEMP 37.3; O2SAT 92; BMI 30.5
--- NOTE | 2023-07-03 21:03 | ECG_ITS ---
Test Reason : SOB Blood Pressure : / mmHG Vent. Rate : 128 BPM Atrial Rate : 128 BPM P-R Int : 112 ms QRS Dur : 080 ms QT Int : 308 ms P-R-T Axes : 061 039 037 degrees QTc Int : 449 ms Sinus tachycardia Otherwise normal ECG When compared with ECG of 21-OCT-2021 16:48, No significant change was found Referred By: Selene Up Electronically Signed By:Ambrose Ro
--- NOTE | 2023-07-03 21:06 | ED_ITS ---
HPI - SOB/Dyspnea General Chief Complaint: Upper Respiratory Symptoms Stated Complaint: asthma Time Seen by Provider: 07/03/23 21:03 Source: patient Mode of arrival: ambulatory Limitations: no limitations History of Present Illness HPI Narrative: Patient is a 40-year-old female with past medical history of asthma presents to emergency department for progressive worsening of shortness of breath and wheezing. She has been taking prednisone 60 mg for the past 2 days without significant improvement, states that typically with her asthma exacerbations by day 3 she is feeling much better, this time unfortunately she has not. She has tried her inhalers and nebulizers at home without any improvement. She denies any history of intubation in the past. She is speaking short brief sentences 2- 3 words at a time, voices soft. Lung sounds are tight bilaterally, notable inspiratory wheezing increased work of breathing. Related Data Home Medications Medication Instructions Recorded Confirmed blood sugar diagnostic #10 ea 05/08/20 06/10/22 cetirizine 10 mg tablet 1 tab PO DAILY 10/21/21 03/21/23 acetaminophen 500 mg tablet 500 mg PO Q6H PRN 05/26/22 03/21/23 (Tylenol Extra Strength) cyclobenzaprine 10 mg tablet 10 mg PO TID 05/26/22 03/21/23 fluticasone propionate 50 1 spray intranasal DAILY PRN 05/26/22 03/21/23 mcg/actuation nasal spray,suspension ibuprofen 200 mg tablet (Advil) 200 mg PO Q6H PRN 05/26/22 03/21/23 lidocaine 5 % topical patch 1 patch topical DAILY 05/26/22 03/21/23 lancets 28 gauge (FreeStyle #100 ea 07/01/22 Lancets) nebulizers 01/04/23 Previous Rx's Medication Instructions Recorded budesonide 0.5 mg/2 mL suspension 0.5 mg (2 mL) inhalation BID 30 06/19/20 for nebulization days #120 mL benzonatate 200 mg capsule 200 mg PO BID PRN cough 30 days 03/22/22 #60 caps blood sugar diagnostic (FreeStyle #100 ea 06/10/22 Lite Strips) blood-glucose meter (FreeStyle #1 ea 06/10/22 Lite Meter kit) insulin lispro 100 unit/mL 5 unit (0.05 mL) subcut TID #15 mL 06/10/22 subcutaneous pen (Humalog KwikPen (U-100) Insulin) lancets 33 gauge #100 ea 06/10/22 pen needle, diabetic 32 gauge x #50 ea 06/10/22 insulin glargine U-300 conc 300 40 unit (0.1333 mL) subcut DAILY 06/16/22 unit/mL (3 mL) subcutaneous pen #6 mL (Toujeo Max U-300 SoloStar) ipratropium 0.5 mg-albuterol 3 mg 3 ml inhalation QID 30 days #360 mL 12/30/22 (2.5 mg base)/3 mL nebulization soln budesonide-formoterol HFA 160 2 puff inhalation BID 30 days 01/04/23 mcg-4.5 mcg/actuation aerosol #10.2 grams inhaler (Symbicort) roflumilast 500 mcg tablet 500 mcg PO DAILY 30 days #30 tabs 01/04/23 (Daliresp) blood-glucose sensor (FreeStyle #2 ea 01/05/23 Jeffrey 3 Sensor device) atorvastatin 10 mg tablet 10 mg PO DAILY #90 tabs 01/12/23 albuterol sulfate 90 mcg/actuation 2 puff PO Q6H PRN for wheezing #18 03/17/23 aerosol inhaler (Ventolin HFA) grams codeine 10 mg-guaifenesin 100 mg/5 10 ml PO Q6H PRN cough 10 days 03/21/23 mL oral liquid #300 mL benralizumab 30 mg/mL subcutaneous 30 mg subcut Q8W 8 weeks #1 mL 04/14/23 auto-injector (Fasenra Pen) doxycycline monohydrate 100 mg 100 mg PO BID 14 days #28 tabs 04/14/23 tablet prednisone 10 mg tablet See Rx Instructions PO DAILY 18 04/14/23 days #63 tabs prednisone 10 mg tablet See Rx Instructions PO DAILY 18 04/14/23 days #63 tabs Allergies Allergy/AdvReac Type Severity Reaction Status Date / Time No Known Allergies Allergy Verified 04/14/23 09:04 Review of Systems 2 Review of Systems: Yes all other systems are reviewed and are negative PMFSH Past Medical History Attestation statement: The following information was validated with the patient. Source: old records reviewed Medical History Bronchopneumonia Chronic allergic rhinitis Asthma Lichen sclerosus of female genitalia Diabetes mellitus Surgical History History of nasal surgery (~1995) History of tubal ligation (~2013) Family History Family History Maternal Grandmother Colon cancer Social History Social History Household Members: Family Housing: House Do you presently have visiting nurse or other home services: No Alcohol intake: current Alcohol intake frequency: holidays/special occasions only Patient Tobacco Use Status: Never used Tobacco Smoked in Last 30 Days: No e-Cigarette/Vaping Use: Never Used Use of substances other than those prescribed or required for medical reasons: No Advance Directives: Yes Advance Directives on File: Yes Advance Directives Date on File: 10/25/21 Patient : No service: No Current occupational status: employed 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 Eyes: Pupils equal, round and reactive to light.? ENT: Pharynx normal.?? Neck: Normal inspection.? Neck supple.?? CVS: Heart sounds normal. Tachycardia? Pulses normal.?? Respiratory: Lung sounds type bilaterally, inspiratory wheezing, increased work of breathing Abdomen: Soft and non-tender. Normoactive bowel sounds. Skin: Skin warm and dry.? Normal skin color.? Extremities: No lower extremity edema.? No calf ttp? Neuro: Moves all extremities spontaneously. Sensation intact bilaterally. Ambulates with normal steady gait. Medications Administered Generic Name Dose Route Start Last Admin Trade Name Freq PRN Reason Stop Dose Admin Acetaminophen 650 mg 07/03/23 22:27 07/03/23 22:58 Acetaminophen 325 Mg Tablet PO 650 mg Q6H PRN Administration Pain, Mild (Pain Scale 1-3) Enoxaparin Sodium 40 mg 07/03/23 23:00 07/03/23 22:53 Enoxaparin Sodium 40 Mg/0.4 Ml Syringe SUBCUT 40 mg Q24H AMY Administration Sodium Chloride 3 ml 07/04/23 00:00 07/03/23 23:00 0.9 % Sodium Chloride Flush 3 Ml Syringe IVFLUSH 3 ml QSHIFT AMY Administration Discontinued Medications Generic Name Dose Route Start Last Admin Trade Name Freq PRN Reason Stop Dose Admin Albuterol Sulfate 7.5 mg/ 0 mg 07/03/23 21:13 07/03/23 21:14 Albuterol/Ipratropium 3 ml INHALE 07/03/23 21:14 2.5 each ONCE ONE Administration Magnesium Sulfate 2 gm in 50 mls @ 25 mls/hr 07/03/23 21:34 07/04/23 00:00 Magnesium Sulfate/H2o IV 07/03/23 23:33 Infused ONCE ONE Infusion Sodium Chloride 250 mls @ 999 mls/hr 07/03/23 23:26 07/04/23 01:17 Ns IV 07/03/23 23:41 999 mls/hr .Q16M ONE Administration Insulin Glargine 40 unit 07/03/23 23:26 07/04/23 01:17 Insulin Glargine,Hum.Rec.Anlog 100 Unit/Ml 10 Ml Vial SUBCUT 07/03/23 23:27 30 unit ONCE ONE Administration Insulin Human Lispro 10 unit 07/03/23 22:16 07/03/23 22:52 Insulin Lispro 100 Unit/Ml 3 Ml Vial SUBCUT 07/03/23 22:17 10 unit ONCE ONE Administration Insulin Human Regular 5 unit 07/03/23 22:31 07/03/23 22:51 Insulin Regular, Human 100 Unit/Ml 3 Ml Vial IVPUSH 07/03/23 22:32 5 unit ONCE ONE Administration Levalbuterol HCl 1.25 mg 07/03/23 21:46 07/03/23 21:53 Levalbuterol Hcl 1.25 Mg/3 Ml Vial.Neb INHALE 07/03/23 21:47 1.25 mg ONCE ONE Administration Methylprednisolone Sodium Succinate 125 mg 07/03/23 21:03 07/03/23 21:55 Methylprednisolone Sod Succ 125 Mg/2 Ml Vial IVPUSH 07/03/23 21:04 125 mg ONCE ONE Administration Oseltamivir Phosphate 75 mg 07/03/23 22:25 07/03/23 22:52 Oseltamivir Phosphate 75 Mg Capsule PO 07/03/23 22:26 75 mg ONCE ONE Administration Medical Decision Making Medical Decision Making [facility] Narrative: Patient is a 48-year-old female past medical history of asthma, poorly managed insulin-dependent diabetes mellitus, hyperlipidemia presenting to emergency department for evaluation of shortness of breath and expresses concern for asthma exacerbation. Progressive symptoms over the past 2 days without improvement on prednisone. Initially received albuterol nebulizer, resulting in notable tachycardic for which she was transitioned to Xopenex but remained with significant wheezing and dyspnea while at rest. She is noted to be influenza A positive. Upon speaking with her further once respiratory status improved she does state that she has been sick for about a week with severe symptoms for the past 3 days. She has been self medicating with prednisone. Reports that she had a fever yesterday of 102.3. She also received Solu-Medrol and magnesium 2 g IV. Admission to medicine service for asthma exacerbation secondary to influenza a. Hyperglycemic while in the ED, treated with insulin lispro, no evidence of DKA. No risk factors, doubt PE as etiology for symptoms. Differential Diagnosis Differential Diagnoses: The differential diagnosis associated with the presentation includes (Asthma exacerbation, pneumonia, viral syndrome, hyperglycemia secondary to poorly managed diabetes mellitus, not consistent with DKA.) Admission/Observation Consideration of admission/observation: Escalation of care including admission/observation considered (See narrative above) Consult Healthcare Provider Management of the patient was discussed with: Hospitalist (Dr. Robison) Lab Data [facility] Lab Attestation statement: I reviewed the patient's lab results. Influenza a positive. No leukocytosis or anemia. Hyponatremia of 132, corrected to 137 for hyperglycemia. No further electrolyte derangement or FRANCISCO. 07/03/23 21:26 07/03/23 21:26 Labs: Lab Results 07/03/23 Range/Units 21:26 WBC 5.7 (4.8-10.8) X10*3/uL RBC 5.13 (4.20-5.50) X10*6/uL Hgb 14.4 (12.0-16.0) g/dl Hct 40.5 (37.0-47.0) % MCV 78.9 L (80.0-98.0) fL MCH 28.1 (27.0-33.0) pg MCHC 35.6 H (31.0-35.0) g/dl RDW 11.9 (11.0-16.0) % Plt Count 210 (160-400) X10*3/uL MPV 10.5 (9.4-12.3) fL Immature Gran % (Auto) 0.4 (0.0-0.4) % Neut % (Auto) 57.4 (45-73) % Lymph % (Auto) 31.6 (20-40) % [place] % (Auto) 10.4 (2-11) % Eos % (Auto) 0.0 (0-4) % Baso % (Auto) 0.2 (0-2) % Lymph # (Auto) 1.8 (1.2-4.9) X10*3/uL [place]ains # (Auto) 0.6 (0.1-1.2) X10*3/uL Eos # (Auto) 0.0 (0.0-0.4) X10*3/uL Baso # (Auto) 0.0 (0.0-0.2) X10*3/uL Abs Immat Gran (auto) 0.02 (0.00-0.03) X10*3/uL Absolute Neuts (auto) 3.3 (2.0-8.3) x10*3/uL Absolute Nucleated RBC 0.000 (0.0-0.012) X10*3/uL Nucleated RBC % (auto) 0.0 (0.0-0.2) /100WBC PT 11.7 (11.1-13.3) SEC INR 1.0 (0.9-1.1) Sodium 132 L (135-145) mmol/L Potassium 3.7 (3.3-5.1) mmol/L Chloride 100 (96-108) mmol/L Carbon Dioxide 22 (22-29) mmol/L Anion Gap 14 (12-20) BUN 13 (9-16) mg/dL Creatinine 0.84 (0.5-1.4) mg/dL Estim Creat Clear Calc 71.9 Estimated GFR > 60 Random Glucose 439 H* (60-115) mg/dL Calcium 9.2 (8.4-10.2) mg/dL Magnesium 1.8 (1.6-2.6) mg/dL Total Bilirubin 0.4 (0.0-1.0) mg/dL AST 18 (5-31) U/L ALT 31 (0-31) U/L Alkaline Phosphatase 120 H (39-117) U/L Total Protein 7.5 (6.5-8.0) g/dL Albumin 4.1 (3.5-5.0) g/dL Influenza Type A (PCR) POSITIVE A (Negative) Influenza Type B (PCR) NEGATIVE (Negative) RSV RNA Qual (PCR) NEGATIVE (Negative) SARS-CoV-2 RNA (RT-PCR) NEGATIVE (Negative) Independent Interpretation I performed an independent interpretation of an: EKG and Plain X-Ray (No infiltrate or pleural effusion.) Interpretation: Rate:128 Rhythm:? Sinus tachycardia Mcintyre:? Normal Normal P waves.? Normal MIGUEL ANGEL.?? Normal QRS complex.?? ST T wave :??No ST elevation, no ST depression, no T-wave inversion qTC: 449 The study has been interpreted contemporaneously by me. Radiology Impression Discussion of test interpretation with radiology: I have reviewed the radiologist's reading. Radiologist Impression: XR/XR chest 1V IMPRESSION: Unremarkable chest examination. External Record Review External record reviewed: Inpatient record Critical Care Time Critical Care Time Critical Care Time: Yes Total Critical Care Time: 45 Attestation: I personally attest to this critical care time spent taking care of the patient exclusive of all other billable procedures was approximately 45 minutes including initial evaluation of patient, ordering tests, x-ray interpretation, EKG interpretation, medical consultation, documentation, re-evaluation. Discharge Plan Discharge Clinical Impression: Asthma exacerbation, Influenza A Patient Disposition: Admitted As Inpatient
[2023-07-03] MEDS: Albuterol Sulfate 7.5 MG, Albuterol/Iprat 2.5/0.5MG 3 ML 3 ML INHALE (21:14)
[2023-07-03 21:15] VITALS: PULSE 127; RESP 22; O2SAT 93
[2023-07-03 21:30] LABS: MANUAL DIFF FLAG NO
[2023-07-03 21:32] LABS: Basophils Percent Auto 0.2 % (0-2); Hematocrit 40.5 % (37.0-47.0); Hemoglobin 14.4 g/dl (12.0-16.0); Imm Gran Abs Auto 0.02 X10*3/uL (0.00-0.03); Imm Gran Pct Auto 0.4 % (0.0-0.4); Lymphocytes Absolute Auto 1.8 X10*3/uL (1.2-4.9); Lymphocytes Percent Auto 31.6 % (20-40); Mean Corpuscular HGB Conc 35.6 g/dl (31.0-35.0); Mean Corpuscular Hemoglobin 28.1 pg (27.0-33.0); Mean Corpuscular Volume 78.9 fL (80.0-98.0); Mean Platelet Volume 10.5 fL (9.4-12.3); Monocytes Absolute Auto 0.6 X10*3/uL (0.1-1.2); Monocytes Percent Auto 10.4 % (2-11); Neutrophils Absolute Auto 3.3 x10*3/uL (2.0-8.3); Neutrophils Percent Auto 57.4 % (45-73); Platelet Count 210 X10*3/uL (160-400); Red Blood Count 5.13 X10*6/uL (4.20-5.50); Red Cell Distribution Width 11.9 % (11.0-16.0); White Blood Count 5.7 X10*3/uL (4.8-10.8)
[2023-07-03 21:38] LABS: Prothrombin Time 11.7 SEC (11.1-13.3)
[2023-07-03] MEDS: Magnesium Sulfate/H2O 2 GM/50 ML PIGGYBACK IV (21:47)
[2023-07-03 21:51] LABS: Alanine Aminotransferase 31 U/L (0-31); Albumin Level 4.1 g/dL (3.5-5.0); Alkaline Phosphatase 120 U/L (39-117); Anion Gap 14 (12-20); Aspartate Amino Transferase 18 U/L (5-31); Bilirubin Total 0.4 mg/dL (0.0-1.0); Blood Urea Nitrogen 13 mg/dL (9-16); Calcium 9.2 mg/dL (8.4-10.2); Carbon Dioxide 22 mmol/L (22-29); Chloride 100 mmol/L (96-108); Creatinine Clr Calc Pharmacy 71.9; Estimated Glomerular Filt Rate > 60; Glucose Random 439 mg/dL (60-115); Magnesium 1.8 mg/dL (1.6-2.6); Potassium 3.7 mmol/L (3.3-5.1); Sodium 132 mmol/L (135-145); Total Protein 7.5 g/dL (6.5-8.0)
[2023-07-03 21:53] VITALS: PULSE 149; RESP 30; O2SAT 94
[2023-07-03] MEDS: levalbuterol HCL 1.25 MG/3 ML VIAL.NEB INHALE (21:53)
[2023-07-03] MEDS: methylPREDNISolone Sod Succ 125 MG/2 ML VIAL IVPUSH (21:55)
[2023-07-03 22:13] LABS: Influenza A PCR POSITIVE (Negative); Influenza B PCR NEGATIVE (Negative); Resp Syncy Virus RNA Qual PCR NEGATIVE (Negative); SARS COV2 PCR INHOUSE NEGATIVE (Negative)
--- NOTE | 2023-07-03 22:31 | P.HPHOSP_ITS ---
History of Present Illness Date of Service: 07/03/23 Chief Complaint: Dyspnea This is a 48-year-old female with pertinent history of asthma, insulin-dependent diabetes mellitus, mixed hyperlipidemia who presents to the emergency department for evaluation of dyspnea. Patient states he started having symptoms 2 days prior to presentation. The dyspnea was progressive and worse with exertion. Also had associated wheezing and nonproductive cough. Endorses malaise and generalized fatigability. No sick contacts. Patient states that she has been self medicating with prednisone 60 mg for the past 2 days but no relief. Also has been taking her home inhalers. Patient admits she is noncompliant with her insulin regimen for diabetes mellitus. Had an episode of fever 1 day prior to presentation. No chest discomfort, palpitations, abdominal pain, changes in urinary or bowel habits. In the emergency department, patient with continued wheezing despite multiple DuoNeb treatments. Was given IV Solu-Medrol and IV magnesium in the ER. Review of Systems 2 Constitutional: Constitutional: Reports fatigue, Reports lethargy, Reports malaise, Reports poor appetite and Reports weakness Cardiovascular: Cardiovascular: Reports dyspnea and Reports dyspnea on exertion Respiratory: Respiratory: Reports cough, Reports dyspnea, Reports dyspnea on exertion and Reports wheezing Gastrointestinal: Gastrointestinal: Reports no additional gastrointestinal complaints Genitourinary: Genitourinary: Reports no additional female genitourinary complaints Neurologic: Reports weakness Endocrine: Endocrine: Reports fatigue Allergic/Immunologic: Allergic/Immunologic: Reports wheezing [facility] Medical History Bronchopneumonia Chronic allergic rhinitis Asthma Lichen sclerosus of female genitalia Diabetes mellitus Family History Maternal Grandmother Colon cancer Surgical History History of nasal surgery (~1995) History of tubal ligation (~2013) Social History Household Members: Family Housing: House Do you presently have visiting nurse or other home services: No Alcohol intake: current Alcohol intake frequency: holidays/special occasions only Patient Tobacco Use Status: Never used Tobacco Smoked in Last 30 Days: No e-Cigarette/Vaping Use: Never Used Use of substances other than those prescribed or required for medical reasons: No Advance Directives: Yes Advance Directives on File: Yes Advance Directives Date on File: 10/25/21 Patient : No service: No Current occupational status: employed 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 Sexual orientation: Straight/Heterosexual Meds Allergies Allergy/AdvReac Type Severity Reaction Status Date / Time No Known Allergies Allergy Verified 04/14/23 09:04 Active Medications: Current Medications Acetaminophen (Acetaminophen 325 Mg Tablet) 650 mg PO Q6H PRN PRN Reason: Pain, Mild (Pain Scale 1-3) Albuterol/Ipratropium (Albuterol/Iprat 2.5/0.5mg 3 Ml Ampul.Neb) 3 ml INHALE RQ4H WHILE AWAKE AMY Albuterol/Ipratropium (Albuterol/Iprat 2.5/0.5mg 3 Ml Ampul.Neb) 3 ml INHALE Q4H PRN PRN Reason: Wheezing Enoxaparin Sodium (Enoxaparin Sodium 40 Mg/0.4 Ml Syringe) 40 mg SUBCUT Q24H AMY Magnesium Sulfate (Magnesium Sulfate/H2o) 2 gm in 50 mls @ 25 mls/hr IV ONCE ONE Stop: 07/03/23 23:33 Last Admin: 07/03/23 21:47 Dose: 25 mls/hr Melatonin (Melatonin 3 Mg Tablet) 6 mg PO BEDTIME PRN PRN Reason: Insomnia Ondansetron HCl (Ondansetron Hcl 4 Mg/2 Ml Vial) 4 mg IVPUSH Q8H PRN PRN Reason: Nausea and Vomiting Sodium Chloride (0.9 % Sodium Chloride Flush 3 Ml Syringe) 3 ml IVFLUSH QSHIFT [facility] [place] Home Medications Medication Instructions Recorded Confirmed Last Taken Type blood sugar diagnostic #10 ea 05/08/20 06/10/22 10/20/21 History cetirizine 10 mg tablet 1 tab PO DAILY 10/21/21 03/21/23 10/20/21 History acetaminophen 500 mg tablet 500 mg PO Q6H PRN 05/26/22 03/21/23 Unknown History (Tylenol Extra Strength) cyclobenzaprine 10 mg tablet 10 mg PO TID 05/26/22 03/21/23 Unknown History fluticasone propionate 50 1 spray intranasal DAILY PRN 05/26/22 03/21/23 Unknown History mcg/actuation nasal spray,suspension ibuprofen 200 mg tablet (Advil) 200 mg PO Q6H PRN 05/26/22 03/21/23 Unknown History lidocaine 5 % topical patch 1 patch topical DAILY 05/26/22 03/21/23 Unknown History lancets 28 gauge (FreeStyle #100 ea 07/01/22 Unknown History Lancets) nebulizers 01/04/23 Unknown History Physical Exam 2 Vital Signs and Narrative: Vital Signs: Last Vital Signs Temp 99.1 F 07/03/23 20:56 Pulse 149 H 07/03/23 21:53 Resp 30 H 07/03/23 21:53 BP 147/93 H 07/03/23 20:56 Pulse Ox 92 07/03/23 20:56 O2 Del Method Room Air 07/03/23 20:56 BMI result Body Mass Index 30.5 Middle-aged female lying in bed in mild distress Neck supple, no JVD Tachycardic with regular rhythm, S1-S2 heard Bilateral wheezing present Abdomen soft nontender, no guarding, no rigidity Patient is awake, alert and oriented to self, place, time and person ; no focal motor deficit Psych: Normal mood No pedal edema Results Labs 07/03/23 21:26 07/03/23 21:26 Labs: Laboratory Results - last 24 hr 07/03/23 21:26 MCV 78.9 L MCH 28.1 MCHC 35.6 H RDW 11.9 Plt Count 210 MPV 10.5 Immature Gran % (Auto) 0.4 Neut % (Auto) 57.4 Lymph % (Auto) 31.6 [place] % (Auto) 10.4 Eos % (Auto) 0.0 Baso % (Auto) 0.2 Lymph # (Auto) 1.8 [place] # (Auto) 0.6 Eos # (Auto) 0.0 Baso # (Auto) 0.0 Abs Immat Gran (auto) 0.02 Absolute Neuts (auto) 3.3 Absolute Nucleated RBC 0.000 Nucleated RBC % (auto) 0.0 PT 11.7 INR 1.0 Anion Gap 14 Estim Creat Clear Calc 71.9 Estimated GFR > 60 Random Glucose 439 H* Calcium 9.2 Magnesium 1.8 Total Bilirubin 0.4 AST 18 ALT 31 Alkaline Phosphatase 120 H Total Protein 7.5 Albumin 4.1 Influenza Type A (PCR) POSITIVE A Influenza Type B (PCR) NEGATIVE RSV RNA Qual (PCR) NEGATIVE SARS-CoV-2 RNA (RT-PCR) NEGATIVE Imaging Radiologist's Impressions: Impressions Chest X-Ray 07/03/23 21:20 IMPRESSION: Unremarkable chest examination. Assessment and Plan (1) Asthma with exacerbation: Status: Acute Plan This is a 48-year-old female with pertinent history of asthma, insulin-dependent diabetes mellitus, mixed hyperlipidemia who presents to the emergency department for evaluation of dyspnea. #. Acute respiratory distress due to acute exacerbation of asthma in the setting of influenza A infection: Will admit patient with isolation precautions. Initiating IV systemic steroids. Scheduled and p.r.n. DuoNebs. Continue home inhaler. Also initiated Tamiflu #. Insulin-dependent diabetes mellitus with hyperglycemia: Initiating basal bolus insulin regimen. #. Mixed hyperlipidemia: On statin Med rec pending DVT prophylaxis: Lovenox Full code Quality Stroke Does the patient have a stroke diagnosis?: No VTE Prior VTE?: No VTE Risk Level:: Medical - moderate - high VTE Device Contraindication: Treatment Not Indicated VTE Drug Contraindication: N/A - Med Ordered
[2023-07-03] MEDS: Insulin Regular, Human 100 UNIT/ML 3 ML VIAL IVPUSH (22:51)
[2023-07-03] MEDS: Insulin Lispro 100 UNIT/ML 3 ML VIAL 10 UNIT SUBCUT (22:52)
[2023-07-03] MEDS: Oseltamivir Phosphate 75 MG CAPSULE PO (22:52)
[2023-07-03] MEDS: Enoxaparin Sodium 40 MG/0.4 ML SYRINGE SUBCUT (22:53)
[2023-07-03] MEDS: Acetaminophen 325 MG TABLET 650 MG PO (22:58)
[2023-07-03] MEDS: 0.9 % Sodium Chloride Flush 3 ML SYRINGE IVFLUSH (23:00)
[2023-07-03 23:58] VITALS: PULSE 106; RESP 20
[2023-07-04] VITALS (10 sets, daily range): BP systolic 103–124; BP diastolic 56–77; PULSE 94–120; RESP 16–24; TEMP 36.2–36.9; O2SAT 92–97; BMI 31.3
[2023-07-04 00:32] LABS: Glucose, Whole Blood 374 mg/dL (60-115)
[2023-07-04] MEDS: 0.9 % Sodium Chloride 250 ML 999 ML IV (01:17)
[2023-07-04] MEDS: Insulin Glargine,Hum.rec.anlog 100 UNIT/ML 10 ML VIAL 40 UNIT SUBCUT (01:17)
[2023-07-04 06:41] LABS: Anion Gap 16 (12-20); Blood Urea Nitrogen 12 mg/dL (9-16); Calcium 8.9 mg/dL (8.4-10.2); Carbon Dioxide 21 mmol/L (22-29); Chloride 103 mmol/L (96-108); Creatinine Clr Calc Pharmacy 80.6; Estimated Glomerular Filt Rate > 60; Sodium 136 mmol/L (135-145)
[2023-07-04 06:46] LABS: Glucose Random 378 mg/dL (60-115)
[2023-07-04 06:51] LABS: Hematocrit 39.6 % (37.0-47.0); Hemoglobin 13.8 g/dl (12.0-16.0); Mean Corpuscular HGB Conc 34.8 g/dl (31.0-35.0); Mean Corpuscular Hemoglobin 28.2 pg (27.0-33.0); Platelet Count 244 X10*3/uL (160-400); Red Blood Count 4.89 X10*6/uL (4.20-5.50); Red Cell Distribution Width 12.1 % (11.0-16.0); White Blood Count 6.7 X10*3/uL (4.8-10.8)
--- NOTE | 2023-07-04 07:10 | PC.NURSE ---
Critical glucose of 378, provider Dr. Robison made aware, no new orders. Plan of care ongoing.
[2023-07-04] MEDS: Albuterol/Iprat 2.5/0.5MG 3 ML AMPUL.NEB INHALE (07:30)
[2023-07-04 08:29] LABS: Glucose, Whole Blood 352 mg/dL (60-115)
[2023-07-04] MEDS: Insulin Lispro 100 UNIT/ML 3 ML VIAL SUBCUT ×6 (08:30→20:48)
[2023-07-04] MEDS: Oseltamivir Phosphate 75 MG CAPSULE PO ×2 (08:30→20:47)
[2023-07-04] MEDS: Benzonatate 100 MG CAPSULE 200 MG PO (08:30)
[2023-07-04] MEDS: methylPREDNISolone Sod Succ 40 MG/ML VIAL IVPUSH (08:30)
[2023-07-04] MEDS: 0.9 % Sodium Chloride Flush 3 ML SYRINGE IVFLUSH ×2 (08:31→12:17)
--- NOTE | 2023-07-04 08:39 | PC.NURSE ---
this RN resumed care of pt at this time. a&ox4. 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 slight sob/wob noted despite breathing treatment being completed. wheezing noted throughout. pt positioned upright to promote patent airway. respirations even/slightly labored. productive cough noted - prn benonzatate administered per provider order. most recent POC = 352mg/dL - 10u insulin administered per sliding scale. report given to admission RN at this time. transport notified that pt is ready to be transported at this time. plan of care ongoing. call gonzalez placed within reach.
[2023-07-04] MEDS: Insulin Glargine,Hum.rec.anlog 100 UNIT/ML 10 ML VIAL 30 UNIT SUBCUT (10:03)
--- NOTE | 2023-07-04 10:24 | PHA.MEDREC ---
Pharmacy Consult ? Medication Reconciliation Pharmacy has completed the medication reconciliation. Spoke to patient and confirmed medication list. Patient said she's not adherent to her insulin and cholesterol medications. She hasn't been monitoring her blood sugar nor injecting insulin for a few months now. She is also not taking atorvastatin 10 mg. Her last dose of predisone was 60 mg on monday night 06/30 and 60 mg on monday night 07/01.
--- NOTE | 2023-07-04 10:53 | MHC.CM.PN ---
OSCAR 07/04/23, Pt is independent, no home health services or medical equipment. HCP is on file, naming her daughter, Jessica and her . Pt will arrange transportation home. PCP confirmed: Dr. Melgar. CM to follow and assist as needed with DC plan.
[2023-07-04 11:13] LABS: Glucose, Whole Blood 301 mg/dL (60-115)
[2023-07-04] MEDS: levalbuterol HCL 2.5 MG, Ipratropium Bromide 0.5 MG INHALE ×3 (11:14→19:28)
--- NOTE | 2023-07-04 11:51 | HO.PM.IMPN ---
Subjective Subjective Date of Service: 07/04/23 Interval History: F/u on asthma exacerbation d/t influenza she feels better but doesn't feel optimal for home Physical Exam Vital Signs: Vital Signs: Last Vital Signs Temp 98.0 F 07/04/23 10:54 Pulse 107 H 07/04/23 11:18 Resp 20 07/04/23 11:18 BP 115/71 07/04/23 10:54 Pulse Ox 94 07/04/23 10:54 O2 Del Method Room Air 07/04/23 10:54 BMI result Body Mass Index 31.3 General: AO X 3, no acute distress Resp: diminished breath sounds bilaterally. CVS: S1,S2,RRR GI: +BS, NT, no distention Skin: No rash Neuro: motor grossly intact Psych: appropriate affect Objective Data Active Medications Acetaminophen (Acetaminophen 325 Mg Tablet) 650 mg PO Q6H PRN PRN Reason: Pain, Mild (Pain Scale 1-3) Last Admin: 07/03/23 22:58 Dose: 650 mg Documented By: RENETTA Benzonatate (Benzonatate 100 Mg Capsule) 200 mg PO TID PRN PRN Reason: cough Last Admin: 07/04/23 08:30 Dose: 200 mg Documented By: ANDREE Levalbuterol HCl 2.5 mg/ (Ipratropium [place] 0.5 mg) 0 mg INHALE RQ4H [facility] Last Admin: 07/04/23 11:14 Dose: 6 dose Documented By: ALANIS Dextrose (Dextrose 50 % 25 Gm/50 Ml Syringe) 25 gm IVPUSH Q15M PRN; Protocol PRN Reason: per Hypoglycemia Standing Ord. Enoxaparin Sodium (Enoxaparin Sodium 40 Mg/0.4 Ml Syringe) 40 mg SUBCUT Q24H [facility] Last Admin: 07/03/23 22:53 Dose: 40 mg Documented By: RENETTA Glucose (Glucose Gel 15 Gm Gel..Gram.) 15 gm PO Q15M PRN; Protocol PRN Reason: per Hypoglycemia Standing Ord. Insulin Glargine (Insulin Glargine,Hum.Rec.Anlog 100 Unit/Ml 10 Ml Vial) 30 unit SUBCUT DAILY [facility] Last Admin: 07/04/23 10:03 Dose: 30 unit Documented By: QUINTON Insulin Human Lispro (Insulin Lispro 100 Unit/Ml 3 Ml Vial) 0 unit SUBCUT QIDAS [facility]; Protocol Last Admin: 07/04/23 08:30 Dose: 10 unit Documented By: ANDREE Insulin Human Lispro (Insulin Lispro 100 Unit/Ml 3 Ml Vial) [address] [facility] Levalbuterol HCl (Levalbuterol Hcl 1.25 Mg/3 Ml Vial.Neb) 1.25 mg INHALE Q2H PRN PRN Reason: Shortness of Breath/Wheezing Melatonin (Melatonin 3 Mg Tablet) 6 mg PO BEDTIME PRN PRN Reason: Insomnia Methylprednisolone Sodium Succinate (Methylprednisolone Sod Succ 40 Mg/Ml Vial) 40 mg IVPUSH Q12H [facility] Last Admin: 07/04/23 08:30 Dose: 40 mg Documented By: ANDREE Ondansetron HCl (Ondansetron Hcl 4 Mg/2 Ml Vial) 4 mg IVPUSH Q8H PRN PRN Reason: Nausea and Vomiting Oseltamivir Phosphate (Oseltamivir Phosphate 75 Mg Capsule) 75 mg PO Q12H [facility] Stop: 07/08/23 21:01 Last Admin: 07/04/23 08:30 Dose: 75 mg Documented By: ANDREE Sodium Chloride (0.9 % Sodium Chloride Flush 3 Ml Syringe) 3 [facility] Last Admin: 07/04/23 08:31 Dose: 3 ml Documented By: ANDREE Labs 07/04/23 05:22 07/04/23 05:22 Labs: Laboratory Results - last 24 hr 07/03/23 07/04/23 07/04/23 21:26 00:27 05:22 MCV 78.9 L 81.0 MCH 28.1 28.2 MCHC 35.6 H 34.8 RDW 11.9 12.1 Plt Count 210 244 MPV 10.5 11.0 Immature Gran % (Auto) 0.4 Neut % (Auto) 57.4 Lymph % (Auto) 31.6 Atkinson % (Auto) 10.4 Eos % (Auto) 0.0 Baso % (Auto) 0.2 Lymph # (Auto) 1.8 Atkinson # (Auto) 0.6 Eos # (Auto) 0.0 Baso # (Auto) 0.0 Abs Immat Gran (auto) 0.02 Absolute Neuts (auto) 3.3 Absolute Nucleated RBC 0.000 0.000 Nucleated RBC % (auto) 0.0 0.0 PT 11.7 INR 1.0 Anion Gap 14 16 Estim Creat Clear Calc 71.9 80.6 Estimated GFR > 60 > 60 POC Glucose 374 H* Random Glucose 439 H* 378 H* Calcium 9.2 8.9 Magnesium 1.8 Total Bilirubin 0.4 AST 18 ALT 31 Alkaline Phosphatase 120 H Total Protein 7.5 Albumin 4.1 Influenza Type A (PCR) POSITIVE A Influenza Type B (PCR) NEGATIVE RSV RNA Qual (PCR) NEGATIVE SARS-CoV-2 RNA (RT-PCR) NEGATIVE 07/04/23 07/04/23 08:26 11:03 MCV MCH MCHC RDW Plt Count MPV Immature Gran % (Auto) Neut % (Auto) Lymph % (Auto) Atkinson % (Auto) Eos % (Auto) Baso % (Auto) Lymph # (Auto) Atkinson # (Auto) Eos # (Auto) Baso # (Auto) Abs Immat Gran (auto) Absolute Neuts (auto) Absolute Nucleated RBC Nucleated RBC % (auto) PT INR Anion Gap Estim Creat Clear Calc Estimated GFR POC Glucose 352 H* 301 H Random Glucose Calcium Magnesium Total Bilirubin AST ALT Alkaline Phosphatase Total Protein Albumin Influenza Type A (PCR) Influenza Type B (PCR) RSV RNA Qual (PCR) SARS-CoV-2 RNA (RT-PCR) Assessment and Plan (1) Asthma with exacerbation: Status: Acute Plan 48-year-old female with past medical history of asthma presents to the hospital with complaints of shortness of breath this was wheezing and cough found to have acute asthma exacerbation d/t Influenza acute asthma exacerbation d/t influenza -Xopenex Neb sccheduled and PRN -IV steroid for 1 more day -Cough meds PRN Influenza--Tamiflu for 5 days Tachycardia--d/t asthma and albuterol, improved with Xopenex Insulin dependent diabetes with hyperglycemia d/t steroid--she is supposed to be on Lantus 40 and sliding, but hasn't been taking for months -Giving Lantus 30, pre meal insulin and sliding scale. She will be seeing an endocronoloigst on outpatient [place] DVT prophylaxis: Lovenox Requires ongoing inpatient hospitalization due to need for scheduled breathing treatments as well as IV steroids Quality Stroke Does the patient have a stroke diagnosis?: No VTE Prior VTE?: No VTE Risk Level:: Medical - moderate - high VTE Device Contraindication: Treatment Not Indicated VTE Drug Contraindication: N/A - Med Ordered
[2023-07-04 14:25] LABS: Glucose, Whole Blood 382 mg/dL (60-115)
[2023-07-04 16:15] LABS: Glucose, Whole Blood 317 mg/dL (60-115)
[2023-07-04] MEDS: guaiFEN/Codeine SF 200/20/10ML 10 ML LIQUID 5 ML PO (16:21)
[2023-07-04] MEDS: Budesonide 0.5 MG/2 ML AMPUL.NEB INHALE (19:28)
[2023-07-04 20:10] LABS: Glucose, Whole Blood 353 mg/dL (60-115)
[2023-07-04] MEDS: Acetaminophen 325 MG TABLET 650 MG PO (20:47)
[2023-07-04] MEDS: methylPREDNISolone Sod Succ 40 MG/ML VIAL 20 MG IVPUSH (20:48)
[2023-07-05] VITALS (11 sets, daily range): BP systolic 107–121; BP diastolic 61–80; PULSE 85–100; RESP 18–22; TEMP 36–37.2; O2SAT 91–99
[2023-07-05 00:18] LABS: Glucose, Whole Blood 299 mg/dL (60-115)
[2023-07-05] MEDS: Enoxaparin Sodium 40 MG/0.4 ML SYRINGE SUBCUT ×2 (00:41→22:50)
[2023-07-05] MEDS: guaiFEN/Codeine SF 200/20/10ML 10 ML LIQUID 5 ML PO ×2 (00:42→10:33)
[2023-07-05] MEDS: Insulin Glargine,Hum.rec.anlog 100 UNIT/ML 10 ML VIAL 10 UNIT SUBCUT (00:51)
[2023-07-05] MEDS: 0.9 % Sodium Chloride Flush 3 ML SYRINGE IVFLUSH ×3 (00:52→16:11)
[2023-07-05 03:26] LABS: Glucose, Whole Blood 374 mg/dL (60-115)
--- NOTE | 2023-07-05 06:34 | PC.NURSE ---
Per his requested, advised Dr Prabhakar of bedtime POC - 353. Solumedrol dose was decreased to 20mg and SSI of 10 Units Lispro was given and an additional 4 Units of lispro were given. Per Dr. Prabhakar request, recheck POC @ 00:00 & 03:00. POC rechecked @ 00:00 - 299. Advised Dr. Robison - 10 of Lantus was ordered and given. Recheck @ 0300 POC - 374. Dr. Robison notified. Pt resting comfortably in bed with callbell within reach.
[2023-07-05 07:12] LABS: Anion Gap 14 (12-20); Blood Urea Nitrogen 13 mg/dL (9-16); Calcium 9.5 mg/dL (8.4-10.2); Carbon Dioxide 22 mmol/L (22-29); Chloride 103 mmol/L (96-108); Creatinine Clr Calc Pharmacy 87.4; Estimated Glomerular Filt Rate > 60; Glucose Random 328 mg/dL (60-115); Potassium 4.3 mmol/L (3.3-5.1); Sodium 135 mmol/L (135-145)
[2023-07-05 07:31] LABS: Glucose, Whole Blood 308 mg/dL (60-115)
[2023-07-05] MEDS: levalbuterol HCL 2.5 MG, Ipratropium Bromide 0.5 MG INHALE ×4 (07:57→19:08)
[2023-07-05] MEDS: Budesonide 0.5 MG/2 ML AMPUL.NEB INHALE ×2 (07:57→19:08)
[2023-07-05] MEDS: Fluticasone/Vilanterol 200/25 BLST.W.DEV 1 PUFF INHALE (07:58)
[2023-07-05] MEDS: Insulin Glargine,Hum.rec.anlog 100 UNIT/ML 10 ML VIAL 30 UNIT SUBCUT (08:03)
[2023-07-05] MEDS: Oseltamivir Phosphate 75 MG CAPSULE PO ×2 (08:03→20:39)
[2023-07-05] MEDS: Roflumilast 500 MCG TABLET PO (08:03)
[2023-07-05] MEDS: methylPREDNISolone Sod Succ 40 MG/ML VIAL 20 MG IVPUSH ×2 (08:03→20:40)
[2023-07-05] MEDS: Insulin Lispro 100 UNIT/ML 3 ML VIAL SUBCUT ×4 (08:04→20:40)
[2023-07-05 11:27] LABS: Glucose, Whole Blood 307 mg/dL (60-115)
--- NOTE | 2023-07-05 13:57 | PM.DS ---
DS: Providers Provider Date of Service: 07/05/23 Date of admission: 07/03/23 22:27 Primary care physician: Leonardo Melgar MD DS: Diagnosis Discharge Diagnosis (1) Asthma with exacerbation: Status: Acute DS: Summary Hospital Course Hospital Course: Chief Complaint: Dyspnea This is a 48-year-old female with pertinent history of asthma, insulin-dependent diabetes mellitus, mixed hyperlipidemia who presents to the emergency department for evaluation of dyspnea. Patient states he started having symptoms 2 days prior to presentation. The dyspnea was progressive and worse with exertion. Also had associated wheezing and nonproductive cough. Endorses malaise and generalized fatigability. No sick contacts. Patient states that she has been self medicating with prednisone 60 mg for the past 2 days but no relief. Also has been taking her home inhalers. Patient admits she is noncompliant with her insulin regimen for diabetes mellitus. Had an episode of fever 1 day prior to presentation. No chest discomfort, palpitations, abdominal pain, changes in urinary or bowel habits. In the emergency department, patient with continued wheezing despite multiple DuoNeb treatments. Was given IV Solu-Medrol and IV magnesium in the ER. Hospial course: Patient presented with shortness of breath in setting of long, severe persistent asthma and found to have influenza as cause of asthma exacerbation. Additionally she was found to have hyperglycemia, as she has not taking insulin for months. Her asthma exacerbation was treated with IV steroid, bronchodilators with Duoneb which was later changed to Xopenex due to thachycardia. She has made a rather rapid recovery, presently feeling much better, no wheezing on exam, and breahting more comfortably. 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 She will be dischaged with Prednosone for a total of 5 days. She is advised to resume insulin including Long acting and long acting.. She tells me she has both long acting and short acting insulin at home and has a coming appointment with her air pollution inspector, Dr. Mckinney, she is advised to call for some guidance should her sugar level be persistently high Time Attestation Discharge Coordination Time (in mins): 35 Quality: Safe Use of Opioids Does Pt have an Active Cancer Diagnosis on the Problem List?: No Quality: Stroke Does the patient have a stroke diagnosis?: No Physical Exam Vital Signs: Vital Signs: Last Vital Signs Temp 98.9 F 07/05/23 11:08 Pulse 98 07/05/23 11:09 Resp 18 07/05/23 11:09 BP 114/69 07/05/23 11:08 Pulse Ox 97 07/05/23 11:08 O2 Del Method Room Air 07/05/23 11:08 BMI result Body Mass Index 31.3 DS: Data Data Completed and Pending Labs on day of discharge: Laboratory Results - last 24 hr 07/04/23 07/04/23 07/04/23 14:21 16:09 19:56 Hold Purple Top Sodium Potassium Chloride Carbon Dioxide Anion Gap BUN Creatinine Estim Creat Clear Calc Estimated GFR POC Glucose 382 H* 317 H 353 H* Random Glucose Calcium 07/04/23 07/05/23 07/05/23 23:35 03:13 06:21 Hold Purple Top SEE NOTE Sodium 135 Potassium 4.3 Chloride 103 Carbon Dioxide 22 Anion Gap 14 BUN 13 Creatinine 0.70 Estim Creat Clear Calc 87.4 Estimated GFR > 60 POC Glucose 299 H 374 H* Random Glucose 328 H Calcium 9.5 D 07/05/23 07/05/23 07:23 11:15 Hold Purple Top Sodium Potassium Chloride Carbon Dioxide Anion Gap BUN Creatinine Estim Creat Clear Calc Estimated GFR POC Glucose 308 H 307 H Random Glucose Calcium Discharge Plan Discharge Anticipated Discharge Date/Time: 07/05/23 13:54 Patient Disposition: Home, Self-Care Discharge Diagnosis: Acute exacerbation of asthma, influenza Referrals: Leonardo Melgar MD [Primary Care Provider] - 1 Week Discharge Medications: Continued (DME) ProsodicStyle Jeffrey 3 Sensor Device See Rx Instructions .Route Qty: 2 5RF Rx Instructions: As directed albuterol sulfate [Ventolin HFA] 90 mcg/actuation HFA aerosol inhaler 2 puff PO Q6H PRN (Reason: for wheezing) Qty: 18 12RF Fasenra Pen 30 mg/mL auto-injector 30 mg subcut Q8W 56 Days Qty: 1 6RF ipratropium-albuterol 0.5 mg-3 mg(2.5 mg base)/3 mL solution for nebulization 3 ml inhalation QID PRN (Reason: Shortness Of Breath Or Wheezing) budesonide 0.5 mg/2 mL suspension for nebulization 0.5 mg inhalation BID 30 Days Qty: 120 11RF (DME) blood sugar diagnostic Strip See Rx Instructions Not Applicable QID Qty: 10 Rx Instructions: As directed cyclobenzaprine 10 mg tablet 10 mg PO DAILY PRN (Reason: Muscle Spasm) lidocaine 5 % adhesive patch,medicated 1 patch topical DAILY PRN (Reason: Pain) Rx Instructions: leave on most painful area for up to 12 hrs acetaminophen [Tylenol Extra Strength] 500 mg tablet 1,000 mg PO Q4H PRN (Reason: Fever Or Pain) ibuprofen [Advil] 200 mg tablet 200 mg PO Q6H PRN (Reason: Pain) (DME) pen needle, diabetic 32 gauge x needle See Rx Instructions subcut QID Qty: 50 0RF Rx Instructions: As directed (DME) blood-glucose meter [FreeStyle Lite Meter] Kit See Rx Instructions .Route Qty: 1 0RF Rx Instructions: As directed checks 4 X/day (DME) lancets 33 gauge misc See Rx Instructions .ROUTE QID Qty: 100 0RF Rx Instructions: As directed checks 4 X/day (DME) FreeStyle Lite Strips Strip See Rx Instructions .Route Qty: 100 4RF Rx Instructions: As directed- checks 4 X/day fluticasone propionate 50 mcg/actuation spray,suspension 1 spray intranasal DAILY PRN (Reason: Allergy Symptoms) (DME) lancets [FreeStyle Lancets] 28 gauge misc See Rx Instructions .ROUTE QID Qty: 100 Rx Instructions: As directed (DME) nebulizers Misc See Rx Instructions .ROUTE Rx Instructions: As directed Daliresp 500 mcg tablet 500 mcg PO DAILY 30 Days Qty: 30 6RF budesonide-formoterol [Symbicort] 160-4.5 mcg/actuation HFA aerosol inhaler 2 puff inhalation BID 30 Days Qty: 10.2 11RF prednisone 10 mg tablet See Rx Instructions PO DAILY 18 Days Qty: 63 0RF Rx Instructions: PO daily; Take 6 tabs daily x 3 days, then 5 tabs x 3 days, then 4 tabs x 3 days, then 3 tabs x 3 days, then 2 tabs daily x 3 days, then 1 tab x 3 days to complete. PT TOOK 60 MG ON FRIDAY 06/30 AND 60 MG 07/01 codeine-guaifenesin 10-100 mg/5 mL liquid 10 ml PO Q6H PRN (Reason: cough) 10 Days Qty: 300 0RF Diet: Diabetic diet Activity on Discharge: As tolerated Stand Alone Forms: Patient Portal Discharge page Care Plan Goals: Full recovery from asthma exacerbation and influenza Health Concerns: Influenza Asthma exacerbation Diabetes with hyperglycemia Plan of Treatment: Take Presnisone as recommended Continue your inhalers as before Take Insulin as recommended and check your sugars before meals and at bedtime- Assessment: see above
[2023-07-05 14:29] LABS: Estimated Average Glucose 266 mg/dL; Hemoglobin A1c % 10.9 % (<6.0)
[2023-07-05 14:35] LABS: Glucose, Whole Blood 376 mg/dL (60-115)
[2023-07-05] MEDS: Insulin Lispro 100 UNIT/ML 3 ML VIAL 7 UNIT SUBCUT (14:45)
[2023-07-05 15:32] LABS: Glucose, Whole Blood 398 mg/dL (60-115)
--- NOTE | 2023-07-05 15:53 | HO.PM.IMPN ---
Subjective Subjective Date of Service: 07/05/23 Interval History: Asthma is better, breathing better. Has dry cough Sugars have been persistently high, Physical Exam Vital Signs: Vital Signs: Last Vital Signs Temp 97.3 F 07/05/23 15:13 Pulse 89 07/05/23 15:24 Resp 18 07/05/23 15:24 BP 107/67 07/05/23 15:16 Pulse Ox 96 07/05/23 15:16 O2 Del Method Room Air 07/05/23 15:16 BMI result Body Mass Index 31.3 General: AO X 3, no acute distress Resp: no wheezes, diminished, normal effort CVS: S1,S2,RRR GI: +BS, NT, no distention Skin: No rash Neuro: motor grossly intact Psych: appropriate affect Objective Data Active Medications Acetaminophen (Acetaminophen 325 Mg Tablet) 650 mg PO Q6H PRN PRN Reason: Pain, Mild (Pain Scale 1-3) Last Admin: 07/04/23 20:47 Dose: 650 mg Documented By: CAORN Benzonatate (Benzonatate 100 Mg Capsule) 200 mg PO TID PRN PRN Reason: cough Last Admin: 07/04/23 08:30 Dose: 200 mg Documented By: ANDREE Budesonide (Budesonide 0.5 Mg/2 Ml Ampul.Neb) 0.5 mg INHALE RBID [facility] Last Admin: 07/05/23 07:57 Dose: 0.5 mg Documented By: ALANIS Levalbuterol HCl 2.5 mg/ (Ipratropium [place] 0.5 mg) 0 mg INHALE RQ4H [facility] Last Admin: 07/05/23 15:22 Dose: 6 dose Documented By: ALANIS Cyclobenzaprine HCl (Cyclobenzaprine Hcl 10 Mg Tablet) 10 mg PO DAILY PRN PRN Reason: Muscle Spasm Dextrose (Dextrose 50 % 25 Gm/50 Ml Syringe) 25 gm IVPUSH Q15M PRN; Protocol PRN Reason: per Hypoglycemia Standing Ord. Enoxaparin Sodium (Enoxaparin Sodium 40 Mg/0.4 Ml Syringe) 40 mg SUBCUT Q24H [facility] Last Admin: 07/05/23 00:41 Dose: 40 mg Documented By: CARON Fluticasone Propionate (Fluticasone Propionate Nasal 16 Gm [place]) 1 spray NOSTRIL-B DAILY PRN PRN Reason: Allergy Symptoms Fluticasone/Vilanterol (Fluticasone/Vilanterol 200/25 Blst.W.Dev) 1 puff INHALE RDAILY [facility] Last Admin: 07/05/23 07:58 Dose: 1 puff Documented By: ALANIS Glucose (Glucose Gel 15 Gm Gel..Gram.) 15 gm PO Q15M PRN; Protocol PRN Reason: per Hypoglycemia Standing Ord. Guaifenesin/Codeine Phosphate (Guaifen/Codeine Sf 200/20/10ml 10 Ml Liquid) 5 ml PO Q6H PRN PRN Reason: Cough Last Admin: 07/05/23 10:33 Dose: 5 ml Documented By: WILFRIDO Insulin Glargine (Insulin Glargine,Hum.Rec.Anlog 100 Unit/Ml 10 Ml Vial) 45 unit SUBCUT DAILY [facility] Last Admin: 07/05/23 10:05 Dose: Not Given Documented By: WILFRIDO Non-Admin Reason: Med already given Insulin Glargine (Insulin Glargine,Hum.Rec.Anlog 100 Unit/Ml 10 Ml Vial) 20 unit SUBCUT BEDTIME [facility] Insulin Human Lispro (Insulin Lispro 100 Unit/Ml 3 Ml Vial) 0 unit SUBCUT QIDACHS [facility]; Protocol Last Admin: 07/05/23 12:24 Dose: 8 unit Documented By: WILFRIDO Insulin Human Lispro (Insulin Lispro 100 Unit/Ml 3 Ml Vial) 10 unit SUBCUT QIDACHS [facility] Levalbuterol HCl (Levalbuterol Hcl 1.25 Mg/3 Ml Vial.Neb) 1.25 mg INHALE Q2H PRN PRN Reason: Shortness of Breath/Wheezing Lidocaine (Lidocaine 4 % Patch Adh..Patch) 1 patch TRANSDERMA DAILY PRN PRN Reason: Pain Melatonin (Melatonin 3 Mg Tablet) 6 mg PO BEDTIME PRN PRN Reason: Insomnia Methylprednisolone Sodium Succinate (Methylprednisolone Sod Succ 40 Mg/Ml Vial) 20 mg IVPUSH BID [facility] Last Admin: 07/05/23 08:03 Dose: 20 mg Documented By: WILFRIDO Ondansetron HCl (Ondansetron Hcl 4 Mg/2 Ml Vial) 4 mg IVPUSH Q8H PRN PRN Reason: Nausea and Vomiting Oseltamivir Phosphate (Oseltamivir Phosphate 75 Mg Capsule) 75 mg PO Q12H [facility] Stop: 07/08/23 21:01 Last Admin: 07/05/23 08:03 Dose: 75 mg Documented By: WILFRIDO Roflumilast (Roflumilast 500 Mcg Tablet) 500 mcg PO DAILY [facility] Last Admin: 07/05/23 08:03 Dose: 500 mcg Documented By: WILFRIDO Sodium Chloride (0.9 % Sodium Chloride Flush 3 Ml Syringe) 3 ml IVFLUSH QSHIFT [facility] Last Admin: 07/05/23 08:04 Dose: 3 ml Documented By: WILFRIDO Labs 07/04/23 05:22 07/05/23 06:21 Labs: Laboratory Results - last 24 hr 07/04/23 07/04/23 07/04/23 16:09 19:56 23:35 Hold Purple Top Anion Gap Estim Creat Clear Calc Estimated GFR POC Glucose 317 H 353 H* 299 H Random Glucose Estimat Average Glucose Hemoglobin A1c % Calcium 07/05/23 07/05/23 07/05/23 03:13 06:21 07:23 Hold Purple Top SEE NOTE Anion Gap 14 Estim Creat Clear Calc 87.4 Estimated GFR > 60 POC Glucose 374 H* 308 H Random Glucose 328 H Estimat Average Glucose 266 Hemoglobin A1c % 10.9 H Calcium 9.5 D 07/05/23 07/05/23 07/05/23 11:15 14:30 15:19 Hold Purple Top Anion Gap Estim Creat Clear Calc Estimated GFR POC Glucose 307 H 376 H* 398 H* Random Glucose Estimat Average Glucose Hemoglobin A1c % Calcium Assessment and Plan (1) Asthma with exacerbation: Status: Acute Plan 48-year-old female with past medical history of asthma presents to the hospital with complaints of shortness of breath this was wheezing and cough found to have acute asthma exacerbation d/t Influenza acute asthma exacerbation d/t influenza -Xopenex Neb sccheduled and PRN -IV steroid to Prednisone 20 bid, starting tonight and ryan over nine days at discharge per her operations specialist advise -Cough meds PRN Influenza--Tamiflu for 5 days Tachycardia--d/t asthma and albuterol, improved with Xopenex Insulin dependent diabetes with hyperglycemia d/t steroid, A1C of 10. -she is supposed to be on Lantus 40 and sliding, but hasn't been taking for months -She has received high amount of insulin in combination of long acting and short acting since admission and yet sugars are still very high, ketoacidosis.. -I have sought advise with her photographer news with suggestion of given present sugar levels to -continue lantus 45 given in am and another 20 at bedtime, and change to the total at bedtime tomorrow, continue sliding scale and add Pre-meal 10 units (ie eating) and and NPH 10 units in the morning. DVT prophylaxis: Lovenox Requires ongoing inpatient hospitalization due to need for scheduled breathing treatments as well as IV steroids, hyperglycemia requiring insulin adjustment Quality Stroke Does the patient have a stroke diagnosis?: No VTE Prior VTE?: No VTE Risk Level:: Medical - moderate - high VTE Device Contraindication: Treatment Not Indicated VTE Drug Contraindication: N/A - Med Ordered
[2023-07-05 16:57] LABS: Glucose, Whole Blood 349 mg/dL (60-115)
[2023-07-05] MEDS: Insulin Lispro 100 UNIT/ML 3 ML VIAL 10 UNIT SUBCUT (17:18)
[2023-07-05 20:25] LABS: Glucose, Whole Blood 269 mg/dL (60-115)
[2023-07-05] MEDS: Insulin Glargine,Hum.rec.anlog 100 UNIT/ML 10 ML VIAL 20 UNIT SUBCUT (20:40)
--- NOTE | 2023-07-05 20:47 | PC.NURSE ---
Per MD DR Prabhakar :do not give scheduled Lispro 10 units SQ at bedtime , recheck blood sugar between 11 pm and MN tonkennedi and again at 3 am on 07/05
[2023-07-05 23:23] LABS: Glucose, Whole Blood 200 mg/dL (60-115)
[2023-07-06] MEDS: 0.9 % Sodium Chloride Flush 3 ML SYRINGE IVFLUSH ×2 (00:27→07:57)
[2023-07-06 04:00] VITALS: BP 111/55; PULSE 70; RESP 18; TEMP 36.8; O2SAT 95
[2023-07-06 05:45] LABS: Glucose, Whole Blood 288 mg/dL (60-115)
[2023-07-06 07:25] VITALS: BP 118/64; PULSE 79; RESP 20; TEMP 36.2; O2SAT 94
[2023-07-06 07:45] LABS: Glucose, Whole Blood 255 mg/dL (60-115)
[2023-07-06] MEDS: Oseltamivir Phosphate 75 MG CAPSULE PO (07:57)
[2023-07-06] MEDS: Roflumilast 500 MCG TABLET PO (07:57)
[2023-07-06] MEDS: predniSONE 20 MG TABLET PO (07:57)
[2023-07-06] MEDS: Insulin Glargine,Hum.rec.anlog 100 UNIT/ML 10 ML VIAL 45 UNIT SUBCUT (07:58)
[2023-07-06] MEDS: Insulin Lispro 100 UNIT/ML 3 ML VIAL SUBCUT ×2 (07:58→11:51)
[2023-07-06] MEDS: Insulin Lispro 100 UNIT/ML 3 ML VIAL 10 UNIT SUBCUT ×2 (07:59→11:51)
[2023-07-06] MEDS: guaiFEN/Codeine SF 200/20/10ML 10 ML LIQUID 5 ML PO (08:07)
[2023-07-06] MEDS: levalbuterol HCL 2.5 MG, Ipratropium Bromide 0.5 MG INHALE ×2 (09:03→12:11)
[2023-07-06] MEDS: Fluticasone/Vilanterol 200/25 BLST.W.DEV 1 PUFF INHALE (09:03)
[2023-07-06] MEDS: Budesonide 0.5 MG/2 ML AMPUL.NEB INHALE (09:03)
[2023-07-06 09:08] LABS: Glucose, Whole Blood 245 mg/dL (60-115)
[2023-07-06 09:28] VITALS: PULSE 88; RESP 18; O2SAT 96
[2023-07-06 11:25] LABS: Glucose, Whole Blood 216 mg/dL (60-115)
[2023-07-06 11:55] VITALS: BP 112/59; PULSE 98; RESP 20; TEMP 36.1; O2SAT 95
--- NOTE | 2023-07-06 12:05 | MHC.CM.PN ---
Pt has been medically cleared for DC, she will go home via family transport, self care.
[2023-07-06 12:12] VITALS: PULSE 89; RESP 20; O2SAT 98
[2023-07-06] MEDS: Insulin Glargine,Hum.rec.anlog 100 UNIT/ML 10 ML VIAL SUBCUT (13:15)
[2023-07-06 16:00] VITALS: BP 122/68; PULSE 91; RESP 20; TEMP 36.7; O2SAT 96
== END 2023-07-06 16:35 | disposition home or self-care (01) ==
LOC: HO.ED 22:18 → HO.EDOVER 22:32 → HO.IMC 07-04 07:33
PROVIDERS: Nurse Practitioner Family; Admitting Provider Student in an Organized Health Care Education/Training Program; Emergency Provider Student in an Organized Health Care Education/Training Program; PCP Internal Medicine; Visit Provider Internal Medicine
DX: J45.51 Severe persistent asthma with (acute) exacerbation (principal); J10.1 Influenza due to other identified influenza virus with other respiratory manifestations; E11.65 Type 2 diabetes mellitus with hyperglycemia; R00.0 Tachycardia, unspecified; R06.02 Shortness of breath; E78.2 Mixed hyperlipidemia; R05.9 Cough, unspecified; Z79.4 Long term (current) use of insulin
CPT/HCPCS: 0241U; 36415; 71045; 80048; 80053; 82947; 83036; 83735; 85025; 85027; 85610; 93005; 94640; 96365; 96366; 96375; 96376; 99222; 99285; J1650; J2920; J2930; J3475

== ENCOUNTER → 2023-07-03 21:03 | Outpatient (BNV) | payer MEDICAID, SELFPAY | PROVIDERS: Admitting Provider Student in an Organized Health Care Education/Training Program; Emergency Provider Student in an Organized Health Care Education/Training Program; PCP Internal Medicine; Visit Provider Internal Medicine Cardiovascular Disease | DX: R06.02 Shortness of breath (principal) | CPT/HCPCS: 93010 ==

== ENCOUNTER → 2023-07-03 22:27 | Outpatient (BNV) | payer MEDICAID, SELFPAY | PROVIDERS: Admitting Provider Student in an Organized Health Care Education/Training Program; Emergency Provider Student in an Organized Health Care Education/Training Program; PCP Internal Medicine; Visit Provider Student in an Organized Health Care Education/Training Program | DX: J45.901 Unspecified asthma with (acute) exacerbation (principal) | CPT/HCPCS: 99222; 99232; 99239 ==

== ENCOUNTER 2023-07-21 09:05 | Outpatient (AMB) | payer MEDICAID, SELFPAY ==
--- NOTE | 2023-07-21 09:08 | MHC.OFFVIS ---
Intake Vital Signs 07/21/23 09:09 Height 5 ft Weight 162 lb 0.636 oz BMI 31.6 BP 102/70 Blood Pressure Location Lt brachial Position Sitting Pulse 85 Pulse Source Pulse Oximeter Pulse Oximetry (%) 98 Oxygen Delivery Method Room Air Intake Visit Reasons: Asthma follow-up Allergies No Known Allergies Allergy (Verified 07/21/23 09:10) HPI HPI Comments History of Present Illness Details The patient is a 48-year-old woman with known severe persistent asthma was recently admitted to [facility] with an asthma exacerbation. She has had multiple exacerbations requiring hospitalizations and has been taking prednisone off and on to treat her significant wheezing. 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 Apparently the patient was packing as she is moving was exposed to significant dust and resulted in her significant worsening symptoms requiring the admission to [facility]. When admitted her CBC with differential demonstrated 12% eosinophils which is more than 600 absolute eosinophils. She again responded well to prednisone and IV Solu-Medrol. We did adjust her medications. 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 Current the patient is taking 40 mg of prednisone and she is feeling better. We will start to taper the prednisone down at this time. She did get approved to start Fasenra. 11/02/2021 The patient is here for a follow up visit. The patient has been having a hard time with her asthma. She was evaluated in the ER. CXR with peribronchial cuffing. She felt better after a prednisone taper.She does continue on the Fasenra injection. Initially Fasenra is very effective and now not so much. She was referred to Allergy and immunology. At this point she was maintained on antihistamines into her asthma is better controlled in order to have allergy testing. The patient may be a good candidate for Tezspire if she continues to be uncontrolled. She is considering giving her dog in to adoption due to the fact that her symptoms did get worse she got her dog. She is also contemplating waiting until her allergy testing to be sure since he is part of the family. 03/14/2022 the patient has a telephone visit today. Apparently she was in usual state health until recently when she came back from [place]. The patient noticed she had been coughing more on her flight back to the [facility]. Moderate severity. It was a dry hacky cough per then ultimately started developing some chills and worsening cough now more congested. She did test positive for COVID today. Positive sick contacts. The patient is now quarantine at home. Patient does have significant respiratory disease in therefore I did recommend starting packs Flovent. Denies any significant wheezing at this time. She is using her nebulizer. She knows that there is a relative contraindication for the use of prednisone 1 on Paxil over. Therefore will start her on back slow vent in addition to doxycycline to treat for postviral bacterial infections. 03/22/2022 the patient has a telephone visit today. She did take the PACS Flovent and she completed the course. She also took the doxycycline. However, she continues to complaint of chest tightness and productive cough. The mucus is greenish in color. It is excessive. She has been using nebulizer treatments at least 4 times a day. She is currently not using any prednisone. She does complaint of significant chest tightness. Denies any further so fevers or chills. Will go ahead and treat her with a course of prednisone. Also she can go ahead and start levofloxacin as a stronger antibiotic. However, she needs to monitor closely for tendinitis. She should also take probiotics. 01/04/2023 the patient is here for a pulmonary follow-up visit. Since we last spoke the patient took a hiatus from most of her medications. She felt like she was being overmedicated. Therefore she decided to hold a lot of her respiratory medications. Actually her breathing initially was not too bad but she is been noticing worsening worsening symptoms lately. Recently she had to take prednisone for an exacerbation of her asthma. Partly due to a viral syndrome. She is now better and off the prednisone. The patient did not do well on the Trelegy inhaler. Was causing to have increased coughing increased chest tightness. Therefore will hold off on powdered inhalers for her. I do believe that she will do better on Symbicort. In addition to that we can always consider adding Spiriva to the Symbicort to provide her with the optimum respiratory therapy. In addition to that she has been taking the Daliresp. The patient does have a history of diabetes and therefore needs to be monitored closely her sugars and avoid prednisone because of that. Hopefully with the Daliresp we can avoid that. She is also been responding well to Fasenra injections. Will go ahead and request blood work to assess his allergies and IgE levels and eosinophil levels in order to further address which biologic Chelita's will suit her. It may be the case that she just continue with the Fasenra. No recent imaging studies to review. Will follow-up in 3-4 months. 04/29/2023 the patient is here for a pulmonary follow-up visit. Back in March she was evaluated for bronchitis and an asthma exacerbation. Now again she is starting to develop worsening cough shortness of breath and chest tightness. Moderate severity. She has been using inhalers and also her rescue therapy. Has been using her nebulizer once or twice a day. It Daliresp has been helpful for her. We did look at blood work back in December in her eosinophils were already rising up to 8.5% with an absolute count of 400. The patient did very good on Fasenra injections in the past. Her IgE was normal so therefore Fasenra will be the best option for her. In the meantime the patient is productive of sputum. Yellowish in color. Will go ahead and treat her with doxycycline again. If the patient is no better she should start the prednisone again as well. 07/21/2023 the patient is here for follow-up significant asthma exacerbation she had a chest x-ray which we personally reviewed demonstrating no acute disease. Her blood work was reassuring. Her eosinophils are now 0. She has been on the Fasenra then has been help him fall. The Fasenra injection is very affecting beneficial she will continue the injections every 8 weeks. The patient has been using her Symbicort. She still having some shortness of breath after being in the hospital and also having some wheezing. On examination she has inspiratory and expiratory wheezing suggesting more mucus plugging asthma. Therefore she is going to start some Mucinex. If she has no better if she starts getting more congested she can also start a course of doxycycline again. Hopefully she does not know. She is off the prednisone right now. The patient will see about getting the Prevnar 20 vaccine. She will stop by the pharmacy and asked to see if she is due for the vaccine at this time. Will follow-up in 6 months or sooner if any other issues arise. [facility] Medical History Bronchopneumonia Chronic allergic rhinitis Asthma Lichen sclerosus of female genitalia Diabetes mellitus Surgical History History of nasal surgery (~1995) History of tubal ligation (~2013) Family History Maternal Grandmother Colon cancer Social History Household Members: Family Housing: House Do you presently have visiting nurse or other home services: No Alcohol intake: current Alcohol intake frequency: holidays/special occasions only Patient Tobacco Use Status: Never used Tobacco e-Cigarette/Vaping Use: Never Used Advance Directives Date on File: 10/25/21 service: No Current occupational status: employed 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 Sexual orientation: Straight/Heterosexual Female Reproductive History Menstrual Age of Menarche: 13 Review of Systems Const Denies chills, Denies fatigue, Denies malaise and Denies night sweats ENT Denies change in voice, Denies lip swelling, Denies mouth pain, Reports nasal congestion, Reports nasal discharge and Denies tongue swelling Card Denies chest pain, Denies dyspnea and Reports dyspnea on exertion Resp Denies change in phlegm color, Reports cough, Denies hemoptysis, Denies pain on inspiration, Denies pain with cough, Denies dyspnea, Reports dyspnea on exertion and Reports wheezing GI Denies abdominal pain Musc Denies no additional complaints Neuro Denies Neuro-related abnormal movements Psych Denies no additional complaints Endo Denies fatigue Zain/Lymph Denies easy bleeding and Denies lymphadenopathy Aller/Immun Denies lip swelling, Denies tongue swelling and Reports wheezing Physical Exam Vital Signs: Last Vital Signs Pulse 85 07/21/23 09:09 BP 102/70 07/21/23 09:09 Pulse Ox 98 07/21/23 09:09 Oxygen Delivery Method Room Air 07/21/23 09:09 BMI result Body Mass Index 31.6 Const General: cooperative Orientation/consciousness: patient oriented x3 Neck Neck: Yes normal visual inspection, Yes full ROM and Yes no lymphadenopathy Chest Chest palpation & inspection: normal inspection of the chest Resp Auscultation: wheezes expiratory wheezes and inspiratory wheezes and diminished lung sounds Cardio Rate: regular rate Rhythm: regular rhythm Heart sounds: S1 normal heart sound present and S2 normal heart sound present GI Palpation (GI): Soft to palpation and nontender Auscultation: normal bowel sounds General: Yes no CVA tenderness Back/Spine/Pelvis Back: no CVA tenderness Skin General skin exam: rashes and/or lesions noted Neuro General: patient oriented x3 Assessment & Plan Assessment & Plan (1) Asthma: Code(s): J45.909 - Unspecified asthma, uncomplicated Qualifiers: Asthma complication type: uncomplicated Asthma persistence: persistent Asthma severity: severe Qualified Code(s): J45.50 - Severe persistent asthma, uncomplicated (2) Chronic allergic rhinitis: Code(s): J30.9 - Allergic rhinitis, unspecified (3) Bronchitis: Code(s): J40 - Bronchitis, not specified as acute or chronic Plan continue Symbicort KEREN as needed start Mucinex continue Daliresp continue Fasenra [id number] Will look into the Prevnar 20 Follow-up in 6 months Medications: New doxycycline hyclate 100 mg PO BID 10 days 20 caps 0RF Coding Level of Care Code Est Pt Level 4 (05140) Diagnoses Severe persistent asthma without complication J45.50 Asthma complication type: uncomplicated Asthma persistence: persistent Asthma severity: severe Chronic allergic rhinitis J30.9 Bronchitis J40 Time Spent (min) 18
[2023-07-21 09:09] VITALS: BP 102/70; PULSE 85; O2SAT 98; BMI 31.6
== END 2023-07-21 09:24 | disposition home or self-care (01) ==
PROVIDERS: PCP Internal Medicine; Referring Provider Internal Medicine; Visit Provider Hospitalist
DX: J45.50 Severe persistent asthma, uncomplicated (principal); J30.9 Allergic rhinitis, unspecified; J40 Bronchitis, not specified as acute or chronic
CPT/HCPCS: 99214

== ENCOUNTER → 2023-07-21 09:05 | Outpatient (BNVA) | payer MEDICAID, SELFPAY | PROVIDERS: PCP Internal Medicine; Visit Provider Hospitalist | DX: J45.50 Severe persistent asthma, uncomplicated (principal); J30.9 Allergic rhinitis, unspecified; J40 Bronchitis, not specified as acute or chronic | CPT/HCPCS: 99212 ==

== ENCOUNTER 2023-09-06 07:22 | Outpatient (REF) | payer MEDICAID, SELFPAY ==
[2023-09-06 08:38] LABS: Cholesterol 198 mg/dL (<200); HDL Cholesterol 54 mg/dL (>40); LDL Cholesterol Calculated 108 mg/dL (<100); Triglycerides 182 mg/dL (<150)
[2023-09-06 09:55] LABS: Creatinine Urine 116.99 mg/dL; Microalbum/Creatinine Ratio Ur 5.9 ug/mg cr (<30)
== END 2023-09-06 07:23 | disposition home or self-care (01) ==
LOC: HO.LAB 07:22
PROVIDERS: PCP Internal Medicine; Visit Provider Internal Medicine Endocrinology, Diabetes & Metabolism
DX: E11.9 Type 2 diabetes mellitus without complications (principal)
CPT/HCPCS: 36415; 80061; 82043; 82570

== ENCOUNTER 2023-09-07 10:18 | Outpatient (AMB) | payer MEDICAID, OTHER, SELFPAY ==
--- NOTE | 2023-09-07 10:22 | A.OFFVIS_ITS ---
Vital Signs 09/07/23 10:23 Height 5 ft Weight 162 lb 7.691 oz BMI 31.7 BP 108/78 Blood Pressure Location Lt brachial Position Sitting Pulse 92 Pulse Source Pulse Oximeter Intake Visit Reasons: DM- confirmed Intake Note: Patient present today to follow up on Type 2 Diabetes Mellitus. Last Diabetic Eye exam: 12/2022 Last Podiatry Visit: Doesn't have one Random Glucose: 167 mg/dl HgA1C: 10.9% 07/05/23 Garbage Person Required: No Accompanied by: Self / Same As Patient Allergies No Known Allergies Allergy (Verified 09/07/23 10:28) Medication List - Last Reconciled 09/07/23 by Sincere Mckinney MD acetaminophen (Tylenol Extra Strength) 1,000 mg PO Q4H PRN albuterol sulfate 90 mcg/actuation (Ventolin HFA) 2 puffs PO Q6H PRN benralizumab (Fasenra Pen) 30 mg subcut Q8W 8 weeks blood sugar diagnostic As directed blood sugar diagnostic (FreeStyle Lite Strips) As directed- checks 4 X/day blood-glucose meter (FreeStyle Lite Meter kit) As directed checks 4 X/day blood-glucose sensor (FreeStyle Jeffrey 3 Sensor device) As directed budesonide 0.5 mg (2 mL) inhalation BID 30 days budesonide-formoterol 160-4.5 mcg/actuation (Symbicort) 2 puffs inhalation BID 30 days codeine-guaifenesin 10-100 mg/5 mL 10 mL PO Q6H PRN 10 days cyclobenzaprine 10 mg PO DAILY PRN doxycycline hyclate 100 mg PO BID 10 days fluticasone propionate 50 mcg/actuation 1 spray intranasal DAILY PRN ibuprofen (Advil) 200 mg PO Q6H PRN insulin lispro 5 units subcut TID insulin lispro (Humalog Rusty KwikPen (U-100)) 1 sliding scale dose subcut USEASDIRECTD ipratropium-albuterol 0.5 mg-3 mg(2.5 mg base)/3 mL 3 mL inhalation QID PRN lancets As directed checks 4 X/day lancets (FreeStyle Lancets) As directed lidocaine 5% 1 patch topical DAILY PRN nebulizers As directed oseltamivir (Tamiflu) 75 mg PO Q12H pen needle, diabetic As directed prednisone PO daily; Take 6 tabs daily x 3 days, then 5 tabs x 3 days, then 4 tabs x 3 days, then 3 tabs x 3 days, then 2 tabs daily x 3 days, then 1 tab x 3 days to complete. PT TOOK 60 MG ON FRIDAY 06/30 AND 60 MG 07/01 18 days roflumilast (Daliresp) 500 mcg PO DAILY 30 days Toujeo Max U-300 SoloStar (insulin glargine U-300 conc) 40 units (0.1333 mL) subcut DAILY NS HPI Comments Details: This 48-year-old female with a history of type 2 diabetes. Currently using Toujeo 50 units Humalog 150-200 2 units up to 12 units only if POC>140 Trulicity 1.5 mg not taking Glucometer download shows 1 point of care at 280 Hypoglycemia: rare hypoglycemia Last ophthalmology appointment:. last appt in 12/2022 Exercise:not really Family hx of Type 2 DM in paternal side Using keto diet PFSH Medical History Bronchopneumonia Chronic allergic rhinitis Asthma Lichen sclerosus of female genitalia Diabetes mellitus Surgical History History of nasal surgery (~1995) History of tubal ligation (~2013) Family History Maternal Grandmother Colon cancer Social History Household Members: Family Housing: House Do you presently have visiting nurse or other home services: No Alcohol intake: current Alcohol intake frequency: holidays/special occasions only Patient Tobacco Use Status: Never used Tobacco e-Cigarette/Vaping Use: Never Used Advance Directives Date on File: 10/25/21 service: No Current occupational status: employed 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 The plan is to have the patient check her point cares pre and post meals or to use the sensor. I once again prescribed Jeffrey 3. Can not make any adjustments to the insulin regimen because of lack of data. Once again went over with the patient the correlation of poor glycemic control to the development and progression of complications. I am also going to start Mounjaro 2.5 mg Q weekly. Patient previously can not tolerate Trulicity. Went over side effects of Mounjaro including but not limited to nausea, vomiting rare risk of pancreatitis. Told patient not to start the Mounjaro until she initiate the sensor. She will follow up with the fun house operator next couple of weeks She will also reinitiate the atorvastatin 10 mg and recheck lipid profile in 2 months Orders: Orders Lipid Panel 2 Months E11.9 - Type 2 diabetes mellitus without complications Medications: New tirzepatide (Mounjaro) 2.5 mg (0.5 mL) subcut QWEEK 4 weeks 2 mL 4RF Changed From blood-glucose sensor (FreeStyle Jeffrey 3 Sensor device) As directed 2 ea 5RF To blood-glucose sensor (FreeStyle Jeffrey 3 Sensor device) As directed change every 14 days 2 ea 5RF Coding Level of Care Code Est Pt Level 4 (24355) Diagnoses Diabetes mellitus E11.9
[2023-09-07 10:23] VITALS: BP 108/78; PULSE 92; BMI 31.7
[2023-09-07 10:38] LABS: Glucose, Whole Blood 167 mg/dL (60-115)
== END 2023-09-07 10:58 | disposition home or self-care (01) ==
PROVIDERS: PCP Internal Medicine; Visit Provider Internal Medicine Endocrinology, Diabetes & Metabolism
DX: E11.9 Type 2 diabetes mellitus without complications (principal)
CPT/HCPCS: 99214

== ENCOUNTER → 2023-09-07 10:18 | Outpatient (BNVA) | payer OTHER, SELFPAY | PROVIDERS: PCP Internal Medicine; Visit Provider Internal Medicine Endocrinology, Diabetes & Metabolism | DX: E11.9 Type 2 diabetes mellitus without complications (principal); Z79.4 Long term (current) use of insulin | CPT/HCPCS: 82947; 99212 ==

== ENCOUNTER 2023-09-18 08:00 | Outpatient (AMB) | payer OTHER, SELFPAY ==
--- NOTE | 2023-09-18 08:40 | A.OFFVIS_ITS ---
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 Required: No Accompanied by: Self / Same As Patient Allergies No Known Allergies Allergy (Verified 09/07/23 10:28) HPI Comprehensive Diabetes Asmnt Most Recent Diabetes Results: Hemoglobin A1c 5.4 % 09/05/18 Microalb/Creat Ratio 5.9 ug/mg cr (<30) 09/06/23 Cholesterol 198 mg/dL (<200) 09/06/23 HDL Cholesterol 54 mg/dL (>40) 09/06/23 Triglycerides 182 mg/dL (<150) H 09/06/23 Creatinine 0.70 mg/dL (0.5-1.4) 07/05/23 Blood Urea Nitrogen 13 mg/dL (9-16) 07/05/23 Sodium 135 mmol/L (135-145) 07/05/23 Potassium 4.3 mmol/L (3.3-5.1) 07/05/23 Chloride 103 mmol/L (96-108) 07/05/23 Carbon Dioxide 22 mmol/L (22-29) 07/05/23 Calcium 9.5 mg/dL (8.4-10.2) 07/05/23 AST 18 U/L (5-31) 07/03/23 ALT 31 U/L (0-31) 07/03/23 Total Protein 7.5 g/dL (6.5-8.0) 07/03/23 Albumin 4.1 g/dL (3.5-5.0) 07/03/23 [facility] Medical History Bronchopneumonia Chronic allergic rhinitis Asthma Lichen sclerosus of female genitalia Diabetes mellitus Surgical History History of nasal surgery (~1995) History of tubal ligation (~2013) Family History Maternal Grandmother Colon cancer Social History Household Members: Family Housing: House Do you presently have visiting nurse or other home services: No Alcohol intake: current Alcohol intake frequency: holidays/special occasions only Patient Tobacco Use Status: Never used Tobacco e-Cigarette/Vaping Use: Never Used Advance Directives Date on File: 10/25/21 service: No Current occupational status: employed 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 Assess patient education level/literacy/barriers Patient questions/concerns, patient's last A1c on 07/05/2023 10.9%, which is in the same range as A1c has 08/2023. Patient recently restarted Jeffrey 3 Patient's average glucose for the past 7 days 221 mg/dL Patient above target 72% Patient at target 28% Patient below target 0% Patient has not started Mounjaro 2.5 mg, plans to start after returning from vacation on 10/09/2023 The patient met all learning objectives and was able to verbalize understanding and provide teach back of education topics discussed . The patient was provided with the opportunity to ask questions and all questions were answered. Topics covered in today?s session included: Medications (If applicable) * Name of medication? * Dosing/administration instructions? * Mechanism of action? * Potential side effects? * Potential adverse reaction and appropriate treatment? * Review onset, peak, duration Assess for concerns re: insurance coverage, cost, barriers to compliance Insulin/Injectables (If applicable) * Storage/care of insulin?? * Injection sites? * Site rotation? * Onset, peak, duration * Drawing up insulin? * Injecting insulin/other injectables? * Sharps disposal Continuous blood glucose monitoring (if applicable) Hypoglycemia and Hyperglycemia * Signs and symptoms? * Causes?? * Treatment? * Preventing hypoglycemia? * When to seek medical attention * Blood glucose targets and how you feel when your blood glucose is in and out of your target ranges. * Monitoring and knowing your A1C. * What can make blood glucose go up and down and preventing high and low blood glucose. * Review of blood sugar targets in expected goal range and outside of expected goal range. * Problem solving and preventing hyper/hypoglycemia. * Sick day management of diabetes. * Using blood sugar results in decision making process in managing diabetes. ?Patient was receptive to information provided and participated in the discussion. Asked?appropriate questions and demonstrated good understanding of the topics discussed.? ? Educational Materials: The patient was provided with the following written educational materials: Target Goal, how to treat hypoglycemia handout New Smart Goal: Patient will start Mounjaro 2.5 mg in 2 weeks Patient Response to instructions: Comprehension of Instructions: good Readiness to make changes:? Contemplation How confident they feel about making changes:fair Portions of this note were created using voice recognition software, please excuse any words or phrases that may have been misinterpreted. Patient Instructions: Patient will follow-up with asthma educator in 6 weeks, that visit we can continue conversation about insulin pump therapy Coding Level of Care Code Est Pt Level 1 (46513) Diagnoses Diabetes mellitus E11.9
== END 2023-09-18 08:45 | disposition home or self-care (01) ==
PROVIDERS: PCP Internal Medicine; Visit Provider Registered Nurse Diabetes Educator
DX: E11.9 Type 2 diabetes mellitus without complications (principal)

== ENCOUNTER → 2023-09-18 08:00 | Outpatient (BNVA) | payer OTHER, SELFPAY | PROVIDERS: PCP Internal Medicine; Visit Provider Registered Nurse Diabetes Educator | DX: E11.9 Type 2 diabetes mellitus without complications (principal) | CPT/HCPCS: 99211 ==

== ENCOUNTER 2023-10-30 08:59 | Outpatient (AMB) | payer OTHER, SELFPAY ==
--- NOTE | 2023-10-30 09:15 | MHC.AMDMED ---
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 Required: No Accompanied by: Self / Same As Patient Allergies No Known Allergies Allergy (Verified 09/07/23 10:28) HPI Comprehensive Diabetes Asmnt Most Recent Diabetes Results: Hemoglobin A1c 5.4 % 09/05/18 Microalb/Creat Ratio 5.9 ug/mg cr (<30) 09/06/23 Cholesterol 198 mg/dL (<200) 09/06/23 HDL Cholesterol 54 mg/dL (>40) 09/06/23 Triglycerides 182 mg/dL (<150) H 09/06/23 Creatinine 0.70 mg/dL (0.5-1.4) 07/05/23 Blood Urea Nitrogen 13 mg/dL (9-16) 07/05/23 Sodium 135 mmol/L (135-145) 07/05/23 Potassium 4.3 mmol/L (3.3-5.1) 07/05/23 Chloride 103 mmol/L (96-108) 07/05/23 Carbon Dioxide 22 mmol/L (22-29) 07/05/23 Calcium 9.5 mg/dL (8.4-10.2) 07/05/23 AST 18 U/L (5-31) 07/03/23 ALT 31 U/L (0-31) 07/03/23 Total Protein 7.5 g/dL (6.5-8.0) 07/03/23 Albumin 4.1 g/dL (3.5-5.0) 07/03/23 [facility] Medical History Bronchopneumonia Chronic allergic rhinitis Asthma Lichen sclerosus of female genitalia Diabetes mellitus Surgical History History of nasal surgery (~1995) History of tubal ligation (~2013) Family History Maternal Grandmother Colon cancer Social History Household Members: Family Housing: House Do you presently have visiting nurse or other home services: No Alcohol intake: current Alcohol intake frequency: holidays/special occasions only Patient Tobacco Use Status: Never used Tobacco e-Cigarette/Vaping Use: Never Used Advance Directives Date on File: 10/25/21 service: No Current occupational status: employed 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 0% Hyperglycemia:? 20% Time in Range:? 80% Average glucose for the last 2 weeks? 147 mg/dL Patient has started Mounjaro 2.5 units approximately 4 weeks ago, patient's average glucose has significantly improved. At this point patient is not ready to commit to insulin pump therapy, she would like to increase Mounjaro dose to see further improves her glucose numbers Message sent to Dr. Mckinney regarding increasing Mounjaro to 5 mg if appropriate Reviewed with patient how to treat hypoglycemia with rule of 15s Instructed patient to contact staff development educator provider if episodes of hypoglycemia increase Reviewed how to interpret trend arrows Reminded patient that to check finger sticks if symptoms do not match sensor reading. Discussed lag time between finger stick and sensor data.? Patient able to insert sensor independently at home without issue.? Portions of this note were created using voice recognition software, please excuse any words or phrases that may have been misinterpreted. Medications: Discontinued tirzepatide (Mounjaro) Discontinued Reason: Doctor's Order 2.5 mg (0.5 mL) subcut QWEEK 4 weeks 2 mL 4RF Patient Instructions: Patient will follow-up with staff development educator in 1 month Coding Level of Care Code Est Pt Level 1 (69152) Diagnoses Diabetes mellitus E11.9
== END 2023-10-30 09:31 | disposition home or self-care (01) ==
PROVIDERS: PCP Internal Medicine; Visit Provider Registered Nurse Diabetes Educator
DX: E11.9 Type 2 diabetes mellitus without complications (principal)

== ENCOUNTER → 2023-10-30 08:59 | Outpatient (BNVA) | payer OTHER, SELFPAY | PROVIDERS: PCP Internal Medicine; Visit Provider Registered Nurse Diabetes Educator | DX: E11.9 Type 2 diabetes mellitus without complications (principal) | CPT/HCPCS: 99211 ==

== ENCOUNTER 2023-11-24 08:55 | Outpatient (REF) | payer MEDICAID, SELFPAY ==
--- NOTE | ~2023-11-24 | XR_ITS ---
EXAMINATION: XR FOOT, RIGHT CLINICAL INFORMATION: Right foot numbness COMPARISON: Right foot and right toe x-ray on 12/18/2014 TECHNIQUE: AP, lateral, and oblique views of the right foot. FINDINGS: BONES: Bony structures are intact. There is no focal bone destruction or periosteal reaction seen. JOINTS: Alignment of joints is normal. SOFT TISSUE: Soft tissue is normal. No radiopaque foreign body or abnormal air collection is seen. XR/XR foot RT min 3V IMPRESSION: 1. Unchanged Normal x-rays of right foot. No fracture or dislocation or signs of osteomyelitis are found.
== END 2023-11-24 08:56 | disposition home or self-care (01) ==
LOC: HO.XRAY 08:55
PROVIDERS: PCP Internal Medicine; Visit Provider Internal Medicine
DX: S99.921D Unspecified injury of right foot, subsequent encounter (principal)
CPT/HCPCS: 73630

== ENCOUNTER 2024-01-03 08:28 | Outpatient (AMB) | payer MEDICAID, SELFPAY ==
--- NOTE | 2024-01-03 08:48 | A.OFFVIS_ITS ---
Intake Intake Visit Reasons: T2DM/LVM Business Process Representative Required: No Accompanied by: Self / Same As Patient Allergies No Known Allergies Allergy (Verified 09/07/23 10:28) HPI Comprehensive Diabetes Asmnt Most Recent Diabetes Results: Hemoglobin A1c 5.4 % 09/05/18 Microalb/Creat Ratio 5.9 ug/mg cr (<30) 09/06/23 Cholesterol 198 mg/dL (<200) 09/06/23 HDL Cholesterol 54 mg/dL (>40) 09/06/23 Triglycerides 182 mg/dL (<150) H 09/06/23 Creatinine 0.70 mg/dL (0.5-1.4) 07/05/23 Blood Urea Nitrogen 13 mg/dL (9-16) 07/05/23 Sodium 135 mmol/L (135-145) 07/05/23 Potassium 4.3 mmol/L (3.3-5.1) 07/05/23 Chloride 103 mmol/L (96-108) 07/05/23 Carbon Dioxide 22 mmol/L (22-29) 07/05/23 Calcium 9.5 mg/dL (8.4-10.2) 07/05/23 AST 18 U/L (5-31) 07/03/23 ALT 31 U/L (0-31) 07/03/23 Total Protein 7.5 g/dL (6.5-8.0) 07/03/23 Albumin 4.1 g/dL (3.5-5.0) 07/03/23 [facility] Medical History Bronchopneumonia Chronic allergic rhinitis Asthma Lichen sclerosus of female genitalia Diabetes mellitus Surgical History History of nasal surgery (~1995) History of tubal ligation (~2013) Family History Maternal Grandmother Colon cancer Social History Household Members: Family Housing: House Do you presently have visiting nurse or other home services: No Alcohol intake: current Alcohol intake frequency: holidays/special occasions only Patient Tobacco Use Status: Never used Tobacco e-Cigarette/Vaping Use: Never Used Advance Directives Date on File: 10/25/21 service: No Current occupational status: employed 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 0% Hyperglycemia:? 21% Time in Range:? 79% Average glucose for the last 2 weeks?158 mg/dL Since last visit patient has increase Mounjaro to 5 mg weekly, patient reports she has stopped taking Toujeo 60 units because she is concerned but blood sugars dropping to low. Patient asked if she should restart Toujeo, recommended to patient if she restart Toujeo to reduce dose to 30 units daily, fasting glucose is above 150 mg/dL for 3 days in a row to increase Toujeo to 35 units. If fasting glucoses below 80 mg/dL for 3 days in a row reduce Toujeo to 25 units daily. Patient also reports that she has stopped using pre meal insulin since increasing Mounjaro. Patient's glucose has improved significantly since last A1c of 10.9% in 06/28/2023, patient has appointment with Dr. Mckinney 01/10/2024. Recommended to patient at that visit she discuss increasing Moujaro to 7.5 mg. Patient is also due for next A1c Reviewed how to interpret trend arrows Reminded patient that to check finger sticks if symptoms do not match sensor reading. Discussed lag time between finger stick and sensor data.? Patient able to insert sensor independently at home without issue.? Portions of this note were created using voice recognition software, please excuse any words or phrases that may have been misinterpreted. Patient Instructions: Restart Toujeo 30 units if fasting glucose is above 150 mg/dL increase to 35 units, if below 80 mg/dL reduce toujeo to 25 units Contact early childhood educator aide for next appointment Coding Level of Care Code Est Pt Level 1 (54669) Diagnoses Diabetes mellitus E11.9
== END 2024-01-03 09:41 | disposition home or self-care (01) ==
PROVIDERS: PCP Internal Medicine; Visit Provider Registered Nurse Diabetes Educator
DX: E11.9 Type 2 diabetes mellitus without complications (principal)

== ENCOUNTER → 2024-01-03 08:28 | Outpatient (BNVA) | payer MEDICAID, SELFPAY | PROVIDERS: PCP Internal Medicine; Visit Provider Registered Nurse Diabetes Educator | DX: E11.9 Type 2 diabetes mellitus without complications (principal) | CPT/HCPCS: 99211 ==

== ENCOUNTER 2024-01-11 12:48 | Outpatient (AMB) | payer MEDICAID, SELFPAY ==
--- NOTE | 2024-01-11 09:06 | A.OFFVIS_ITS ---
Vital Signs 01/11/24 12:54 Height 5 ft Weight 163 lb 2.273 oz BMI 31.9 BP 108/68 Blood Pressure Location Rt brachial Position Sitting Pulse 92 Pulse Source Pulse Oximeter Intake Visit Reasons: [id number] Intake Note: Patient presents today to re-establish treatment for Type 2 Diabetes Mellitus: Last Diabetic eye exam was on: Over DUE Last Podiatry exam was on: Does not see a Uniforms Sales Representative Most recent HbA1c: 6.5%, 01/11/2024 Random Glucose- 178 mg/dL, Today Emergency Detail Driver Required: No Accompanied by: Self / Same As Patient Allergies No Known Allergies Allergy (Verified 01/11/24 12:54) HPI Comments Details: This 48-year-old female with a history of type 2 diabetes. She was last seen by Dr. Mckinney 08/28/2023 and seen on 01/03/2024 by Aleida AMRMOLEJO at which time she reported she had stopped Toujeo due to concerns of potential hypoglycemia since starting Mounjaro. She was advised at that visit to restart Toujeo at 35 units and given a titration scale should she run below 80. She had also stopped pre meal Humalog which she had been taking 2 units for every 50 points above 140 up to 12 units. Hemoglobin A1c 01/11/24: Currently medications: Toujeo 30 units Mounjaro 5 mg weekly Dexcom average glucose: 174 14 day continuous glucose monitor report reviewed Glucose Managment indicator 7.5 % Days with CGM data [ ] % TIme in ranges: Four % very high (above 250) 32 % high ?(181-250) 64 % in range ?(70-180] 0 % low (69-55) 0 % ?very low (below 54) Interpretation [ ] Family hx of Type 2 DM in paternal side Denies retinopathy. Last ophthalmology appointmentast appt in 12/2022 Denies neuropathy. No tingling, numbness or cramping in lower extremities. Nephropathy: 07/04/2023 EGFR greater than 60 microalbumin 7.0 not on Alfredo/Arb Not on statin most recent LDL 108 08/2023 Exercise:not really Using keto diet PFSH Medical History Bronchopneumonia Chronic allergic rhinitis Asthma Lichen sclerosus of female genitalia Diabetes mellitus Surgical History History of nasal surgery (~1995) History of tubal ligation (~2013) Family History Maternal Grandmother Colon cancer Social History Household Members: Family Housing: House Do you presently have visiting nurse or other home services: No Alcohol intake: current Alcohol intake frequency: holidays/special occasions only Patient Tobacco Use Status: Never used Tobacco e-Cigarette/Vaping Use: Never Used Advance Directives Date on File: 10/25/21 service: No Current occupational status: employed 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 Absence of acromegalic features. Neck exam reveals nl size thyroid about 15 gms. No thyroid nodules palpable. No carotid bruits present. Lungs CTA. Heart S1 S2, Reg R/R. No M/R G. Skin exam reveals absence of vitiligo or acanthosis nigricans. No edema Visual exam of foot performed. No ulcerations or open lesions. No inter digit maceration or fissuring. No onychomycosis, no callouses. Sensation intact to monofilament exam. Vibratory sensation is normal with 128 Hz tuning fork. Results AMB Hemoglobin A1c AMB Hemoglobin A1c 6.5 % Last Edit by EARNESTINE Lizarraga on 01/11/24 13:14 Results Reviewed Results Reviewed: Laboratory Last Values Glucose (Clinic) 178 mg/dL (60-115) H 01/11/24 13:00 Hgb A1c (Clinic) 6.5 % (4.0-6.0) H 01/11/24 13:13 Laboratory Tests 07/03/23 07/04/23 09/06/23 21:26 05:22 07:26 Plt Count 210 244 Estimated GFR > 60 AST 18 ALT 31 LDL Cholesterol, Calc Urine Microalbumin 7.0 09/06/23 07:31 Plt Count Estimated GFR AST ALT LDL Cholesterol, Calc 108 H Urine Microalbumin Assessment & Plan Assessment & Plan (1) Diabetes mellitus: Code(s): E11.9 - Type 2 diabetes mellitus without complications Category: Medical Plan: 48-year-old type 2 diabetic without micro/macrovascular complications poor glycemic control recently started on a glucose sensor. Doing much better however readings are still 30 points above average desired so we will increase Mounjaro to 7.5 mg Orders: Orders Basic Metabolic Panel 01/11/24 E11.9 - Type 2 diabetes mellitus without complications Lipid Panel 01/11/24 E11.9 - Type 2 diabetes mellitus without complications Microalbumin, Random (w Creat) 01/11/24 E11.9 - Type 2 diabetes mellitus without complications Creatinine Urine 01/11/24 E11.9 - Type 2 diabetes mellitus without complications Free T4 (Free Thyroxine) 01/11/24 E11.9 - Type 2 diabetes mellitus without c omplications Complete Blood Count Auto Diff 01/11/24 E11.9 - Type 2 diabetes mellitus without complications Lipid Panel with Reflex 01/11/24 E11.9 - Type 2 diabetes mellitus without complications AMB Hemoglobin A1c 01/11/24 E11.9 - Type 2 diabetes mellitus without complications Thyroid Stimulating Hormone 01/11/24 E11.9 - Type 2 diabetes mellitus without complications Medications: New tirzepatide (Mounjaro) 7.5 mg (0.5 mL) subcut QWEEK 2 mL 11RF Patient Instructions: The patient was counseled to achieve a target A1C of 7% (154 avg). Fasting blood sugars should be 90-130 in the morning and less than 180 two hours after meals. Reviewed the relationship between poor diabetic control and the developement of complications. The patient was counseled to always carry a source of sugar and on the rule of 15's: Take 3 glucose tablets and repeat again in 15 minutes if blood sugar is not in normal range. Continue to repeat every 15 minutes until blood sugar is normal. The patient was counseled to wear closed toe shoes, never walk barefooted and to inspect the feet daily. For any signs of infection or open wound patient should notify PCP or go to urgent care. Coding Level of Care Code Est Pt Level 4 (03023) Complex EM visit Add On G2211 Diagnoses Diabetes mellitus E11.9
[2024-01-11 12:54] VITALS: BP 108/68; PULSE 92; BMI 31.9
[2024-01-11 13:04] LABS: Glucose, Whole Blood 178 mg/dL (60-115)
== END 2024-01-11 13:33 | disposition home or self-care (01) ==
PROVIDERS: PCP Internal Medicine; Visit Provider Nurse Practitioner Adult Health
DX: E11.9 Type 2 diabetes mellitus without complications (principal)
CPT/HCPCS: 99214; G2211

== ENCOUNTER → 2024-01-11 12:48 | Outpatient (BNVA) | payer OTHER, SELFPAY | PROVIDERS: PCP Internal Medicine; Visit Provider Nurse Practitioner Adult Health | DX: E11.9 Type 2 diabetes mellitus without complications (principal) | CPT/HCPCS: 82947; 83036; 99212 ==

== ENCOUNTER 2024-01-26 09:08 | Outpatient (REF) | payer MEDICAID, SELFPAY ==
[2024-01-26 10:18] LABS: MANUAL DIFF FLAG NO
[2024-01-26 10:52] LABS: Basophils Absolute Auto 0.1 X10*3/uL (0.0-0.2); Basophils Percent Auto 1.1 % (0-2); Eosinophils Absolute Auto 0.7 X10*3/uL (0.0-0.4); Eosinophils Percent Auto 9.5 % (0-4); Hematocrit 39.9 % (37.0-47.0); Hemoglobin 13.8 g/dl (12.0-16.0); Imm Gran Abs Auto 0.05 X10*3/uL (0.00-0.03); Imm Gran Pct Auto 0.7 % (0.0-0.4); Lymphocytes Absolute Auto 1.8 X10*3/uL (1.2-4.9); Lymphocytes Percent Auto 23.5 % (20-40); Mean Corpuscular HGB Conc 34.6 g/dl (31.0-35.0); Mean Corpuscular Hemoglobin 28.5 pg (27.0-33.0); Mean Corpuscular Volume 82.4 fL (80.0-98.0); Mean Platelet Volume 10.6 fL (9.4-12.3); Monocytes Absolute Auto 0.4 X10*3/uL (0.1-1.2); Monocytes Percent Auto 5.1 % (2-11); Neutrophils Absolute Auto 4.5 x10*3/uL (2.0-8.3); Neutrophils Percent Auto 60.1 % (45-73); Platelet Count 260 X10*3/uL (160-400); Red Blood Count 4.84 X10*6/uL (4.20-5.50); Red Cell Distribution Width 12.5 % (11.0-16.0); White Blood Count 7.5 X10*3/uL (4.8-10.8)
[2024-01-26 11:26] LABS: Erythrocyte Sedimentation Rate 20 MM/HR (0-20)
[2024-01-26 11:38] LABS: Anion Gap 13 (12-20); Blood Urea Nitrogen 10 mg/dL (9-16); Calcium 9.4 mg/dL (8.4-10.2); Carbon Dioxide 26 mmol/L (22-29); Chloride 102 mmol/L (96-108); Cholesterol 192 mg/dL (<200); Estimated Glomerular Filt Rate > 60; Free T4 (Free Thyroxine) 0.84 ng/dL (0.71-1.85); Glucose Random 221 mg/dL (60-115); HDL Cholesterol 51 mg/dL (>40); LDL Cholesterol Calculated 112 mg/dL (<100); Potassium 4.3 mmol/L (3.3-5.1); Sodium 137 mmol/L (135-145); Thyroid Stimulating Hormone 0.96 uIU/mL (0.32-4.0); Triglycerides 148 mg/dL (<150)
[2024-01-26 12:16] LABS: Creatinine Urine 113.08 mg/dL; Microalbum/Creatinine Ratio Ur 5.3 ug/mg cr (<30)
[2024-01-26 14:21] LABS: Reflex LDLD? No
[2024-01-29 20:09] LABS: Immunoglobulin E 15 kU/L (<OR=114)
== END 2024-01-26 09:09 | disposition home or self-care (01) ==
LOC: HO.LAB 09:08
PROVIDERS: Absent Provider Nurse Practitioner Adult Health; PCP Internal Medicine; Visit Provider Hospitalist
DX: J45.50 Severe persistent asthma, uncomplicated (principal); J30.9 Allergic rhinitis, unspecified; J40 Bronchitis, not specified as acute or chronic; E11.9 Type 2 diabetes mellitus without complications; Z79.899 Other long term (current) drug therapy
CPT/HCPCS: 36415; 80048; 80061; 82043; 82570; 82785; 84439; 84443; 85025; 85652; 99212

== ENCOUNTER 2024-01-26 09:08 | Outpatient (AMB) | payer MEDICAID, SELFPAY ==
[2024-01-26 09:16] VITALS: BP 126/60; PULSE 90; O2SAT 97; BMI 32.7
--- NOTE | 2024-01-26 09:16 | A.OFFVIS_ITS ---
Vital Signs 01/26/24 09:16 Height 5 ft Weight 167 lb 8.821 oz BMI 32.7 BP 126/60 Blood Pressure Location Lt brachial Position Sitting Pulse 90 Pulse Source Pulse Oximeter Pulse Oximetry (%) 97 Oxygen Delivery Method Room Air Intake Visit Reasons: Asthma follow-up Manager Control Required: No Allergies No Known Allergies Allergy (Verified 01/26/24 09:18) HPI Comments Details: The patient is a 48-year-old woman with known severe persistent asthma was recently admitted to [facility] with an asthma exacerbation. She has had multiple exacerbations requiring hospitalizations and has been taking prednisone off and on to treat her significant wheezing. 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 Apparently the patient was packing as she is moving was exposed to significant dust and resulted in her significant worsening symptoms requiring the admission to [place]. When admitted her CBC with differential demonstrated 12% eosinophils which is more than 600 absolute eosinophils. She again responded well to prednisone and IV Solu-Medrol. We did adjust her medications. 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 Current the patient is taking 40 mg of prednisone and she is feeling better. We will start to taper the prednisone down at this time. She did get approved to start Fasenra. 07/21/2023 the patient is here for follow-up significant asthma exacerbation she had a chest x-ray which we personally reviewed demonstrating no acute disease. Her blood work was reassuring. Her eosinophils are now 0. She has been on the Fasenra then has been help him fall. The Fasenra injection is very affecting beneficial she will continue the injections every 8 weeks. The patient has been using her Symbicort. She still having some shortness of breath after being in the hospital and also having some wheezing. On examination she has inspiratory and expiratory wheezing suggesting more mucus plugging asthma. Therefore she is going to start some Mucinex. If she has no better if she starts getting more congested she can also start a course of doxycycline again. Hopefully she does not know. She is off the prednisone right now. The patient will see about getting the Prevnar 20 vaccine. She will stop by the pharmacy and asked to see if she is due for the vaccine at this time. Will follow-up in 6 months or sooner if any other issues arise. 01/26/2024 the patient is here for pulmonary follow-up visit. She still struggling with the asthma. Still requiring her albuterol on a daily basis. She continues uses Symbicort as prescribed. The patient had been doing very well on Fasenra but she has not been keeping up with the injections. At this point based on her worsening symptoms she needs to be more adherent to the therapy. She understands that she has been forgetful. Will go ahead and request additional blood work to see Fasenra still the best option for her. Although at this point her eosinophils continue to be significantly elevated and her IgE appears to be okay. No recent imaging studies to review. The patient just completed a course of prednisone. Will go ahead and request the patient restarts her Fasenra shots this time. In addition to that I do believe that we can optimize her respiratory therapy by switching over to Breztri. [facility] Medical History Bronchopneumonia Chronic allergic rhinitis Asthma Lichen sclerosus of female genitalia Diabetes mellitus Surgical History History of nasal surgery (~1995) History of tubal ligation (~2013) Family History Maternal Grandmother Colon cancer Social History Household Members: Family Housing: House Do you presently have visiting nurse or other home services: No Alcohol intake: current Alcohol intake frequency: holidays/special occasions only Patient Tobacco Use Status: Never used Tobacco e-Cigarette/Vaping Use: Never Used Advance Directives Date on File: 10/25/21 service: No Current occupational status: employed 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 Sexual orientation: Straight/Heterosexual Female Reproductive History Menstrual Age of Menarche: 13 Review of Systems Const Denies chills, Denies fatigue, Denies malaise and Denies night sweats ENT Denies change in voice, Denies lip swelling, Denies mouth pain, Reports nasal congestion, Reports nasal discharge and Denies tongue swelling Card Denies chest pain, Denies dyspnea and Reports dyspnea on exertion Resp Denies change in phlegm color, Reports cough, Denies hemoptysis, Denies pain on inspiration, Denies pain with cough, Denies dyspnea, Reports dyspnea on exertion and Reports wheezing GI Denies abdominal pain Musc Denies no additional complaints Neuro Denies Neuro-related abnormal movements Psych Denies no additional complaints Endo Denies fatigue Zain/Lymph Denies easy bleeding and Denies lymphadenopathy Aller/Immun Denies lip swelling, Denies tongue swelling and Reports wheezing Physical Exam Vital Signs: Last Vital Signs Pulse 90 01/26/24 09:16 BP 126/60 01/26/24 09:16 Pulse Ox 97 01/26/24 09:16 Oxygen Delivery Method Room Air 01/26/24 09:16 BMI result Body Mass Index 32.7 Const General: cooperative Orientation/consciousness: patient oriented x3 Neck Neck: Yes normal visual inspection, Yes full ROM and Yes no lymphadenopathy Chest Chest palpation & inspection: normal inspection of the chest Resp Auscultation: wheezes expiratory wheezes and inspiratory wheezes and diminished lung sounds Cardio Rate: regular rate Rhythm: regular rhythm Heart sounds: S1 normal heart sound present and S2 normal heart sound present GI Palpation (GI): Soft to palpation and nontender Auscultation: normal bowel sounds General: Yes no CVA tenderness Back/Spine/Pelvis Back: no CVA tenderness Skin General skin exam: rashes and/or lesions noted Neuro General: patient oriented x3 Assessment & Plan Assessment & Plan (1) Asthma: Code(s): J45.909 - Unspecified asthma, uncomplicated Category: Medical Qualifiers: Asthma complication type: uncomplicated Asthma persistence: persistent Asthma severity: severe Qualified Code(s): J45.50 - Severe persistent asthma, uncomplicated (2) Chronic allergic rhinitis: Code(s): J30.9 - Allergic rhinitis, unspecified Category: Medical (3) Bronchitis: Code(s): J40 - Bronchitis, not specified as acute or chronic Category: Medical Plan stop Symbicort start Brextri KEREN as needed continue Daliresp restart Fasenra [id number] bloodwork Follow-up in 6 months Orders: Orders Erythrocyte Sedimentation Rate 01/26/24 J45.50 - Severe persistent asthma, uncomplicated Immunoglobulin E 01/26/24 J45.50 - Severe persistent asthma, uncomplicated Cell Count w Diff Pleural Fld 01/26/24 J45.50 - Severe persistent asthma, uncomplicated Medications: New [id number] 160-9-4.8 mcg/actuation (Breztri Aerosphere) 2 inhalations inhalation BID 10.7 grams 4RF 30 days prednisone PO daily; Take 6 tabs daily x 3 days, then 5 tabs x 3 days, then 4 tabs x 3 days, then 3 tabs x 3 days, then 2 tabs daily x 3 days, then 1 tab x 3 days to complete. 63 tabs 0RF 18 days Coding Level of Care Code Est Pt Level 4 (44523) Diagnoses Severe persistent asthma without complication J45.50 Asthma complication type: uncomplicated Asthma persistence: persistent Asthma severity: severe Chronic allergic rhinitis J30.9 Bronchitis J40 Time Spent (min) 16
== END 2024-01-26 09:36 | disposition home or self-care (01) ==
PROVIDERS: PCP Internal Medicine; Visit Provider Hospitalist
DX: J45.50 Severe persistent asthma, uncomplicated (principal); J30.9 Allergic rhinitis, unspecified; J40 Bronchitis, not specified as acute or chronic
CPT/HCPCS: 99214

== ENCOUNTER 2024-02-05 08:05 | Outpatient (REF) | payer MEDICAID, SELFPAY ==
--- NOTE | ~2024-02-05 | MM_ITS ---
EXAMINATION: MM SCREENING DIGITAL BREAST TOMOSYNTHESIS, BILATERAL CLINICAL INFORMATION: Screening. Asymptomatic. COMPARISON: Mammography: Comparison is made with available priors TECHNIQUE: Digital breast mammography with tomosynthesis is performed in both the craniocaudal and mediolateral oblique views along with computer-aided detection (CAD). FINDINGS: The breasts are extremely dense, which lowers the sensitivity of mammography (ACR BI-RADS breast composition Category d). Bilateral circumscribed oval masses which wax and wane consistent with benign fibrocystic changes. There are no significant masses, abnormal calcifications, or other abnormalities. MM/MM tomosynthesis screening BI IMPRESSION: No mammographic evidence of malignancy. ASSESSMENT: BI-RADS BI-RADS 2 - Benign Findings RECOMMENDATION: Routine annual mammography screening. 1 year F/U This examination should not preclude the clinical evaluation of a suspicious palpable abnormality. This patient's information was entered into a reminder system with a target due date for their next mammogram. Electronically signed by: Ree Mosley DO 02/13/2024 11:23 AM CHEL YOUNGBLOOD
== END 2024-02-05 08:06 | disposition home or self-care (01) ==
LOC: HO.MAMMO 08:05
PROVIDERS: PCP Internal Medicine; Visit Provider Internal Medicine
DX: Z12.31 Encounter for screening mammogram for malignant neoplasm of breast (principal)
CPT/HCPCS: 77063; 77067

== ENCOUNTER → 2024-02-05 08:15 | Outpatient (BNV) | payer MEDICAID, SELFPAY | PROVIDERS: PCP Internal Medicine; Visit Provider Internal Medicine | DX: Z12.31 Encounter for screening mammogram for malignant neoplasm of breast (principal) | CPT/HCPCS: 77063; 77067 ==

== ENCOUNTER 2024-04-19 10:52 | Outpatient (AMB) | payer MEDICAID, SELFPAY ==
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
[2024-04-19 10:58] VITALS: BP 106/70; PULSE 96; BMI 31.3
[2024-04-19 11:20] LABS: Glucose, Whole Blood 196 mg/dL (60-115)
== END 2024-04-19 11:45 | disposition home or self-care (01) ==
PROVIDERS: PCP Internal Medicine; Visit Provider Physician Assistant Medical
DX: E11.9 Type 2 diabetes mellitus without complications (principal); Z79.4 Long term (current) use of insulin

== ENCOUNTER → 2024-04-19 10:52 | Outpatient (BNVA) | payer MEDICAID, SELFPAY | PROVIDERS: PCP Internal Medicine; Visit Provider Physician Assistant Medical | DX: E11.9 Type 2 diabetes mellitus without complications (principal); Z79.4 Long term (current) use of insulin | CPT/HCPCS: 82947; 83036; 99212 ==

== ENCOUNTER 2024-06-11 09:26 | Outpatient (AMB) | payer MEDICAID, SELFPAY ==
--- NOTE | 2024-06-11 09:27 | MHC.OFFVIS ---
Vital Signs 06/11/24 09:30 Height 5 ft Weight 158 lb 8.198 oz BMI 31.0 BP 104/64 Blood Pressure Location Lt brachial Position Sitting Pulse 97 Pulse Source Pulse Oximeter Pulse Oximetry (%) 97 Oxygen Delivery Method Room Air Intake Visit Reasons: T2DM Intake Note: Patient present today to follow up on Type 2 Diabetes Mellitus. Last Diabetic Eye exam: Due Last Podiatry Visit: Does not see a Food Service Lead Random Glucose: 116 mg/dl HgA1C: 7.2% 04/19/2024 Unclaimed Property Manager Required: No Accompanied by: Grand Child Allergies No Known Allergies Allergy (Verified 06/11/24 09:31) Medication List - Last Reconciled 06/11/24 by ILA Peña acetaminophen (Tylenol Extra Strength) 1,000 mg PO Q4H PRN albuterol sulfate 90 mcg/actuation (Ventolin HFA) 2 puffs PO Q6H PRN atorvastatin 10 mg (1/2 x 20 mg) PO BEDTIME 30 days benralizumab (Fasenra Pen) 30 mg subcut Q8W 8 weeks blood sugar diagnostic As directed blood sugar diagnostic (FreeStyle Lite Strips) CHECK 4 TIMES A DAY DIRECTED blood-glucose meter (FreeStyle Lite Meter kit) As directed checks 4 X/day blood-glucose sensor (FreeStyle Jeffrey 3 Sensor device) As directed change every 14 days budesonide 0.5 mg (2 mL) inhalation BID 30 days budesonide-formoterol 160-4.5 mcg/actuation (Symbicort) 2 puffs inhalation BID 30 days inoxkkviun-dfdmtzob-prqpekwdjx 160-9-4.8 mcg/actuation (Breztri Aerosphere) 2 inhalations inhalation BID 30 days codeine-guaifenesin 10-100 mg/5 mL 10 mL PO Q6H PRN 10 days cyclobenzaprine 10 mg PO DAILY PRN famotidine (Pepcid) 20 mg PO BID 14 days fluticasone propionate 50 mcg/actuation 1 spray intranasal DAILY PRN ibuprofen (Advil) 200 mg PO Q6H PRN insulin glargine U-300 conc (Toujeo Max U-300 SoloStar) 55 units subcut DAILY insulin lispro (Humalog Rusty KwikPen (U-100)) 1 sliding scale dose subcut USEASDIRECTD ipratropium-albuterol 0.5 mg-3 mg(2.5 mg base)/3 mL 3 mL inhalation QID PRN lancets As directed checks 4 X/day lancets (FreeStyle Lancets) CHECK 4 TIMES A DAY DIRECTED lidocaine 5% 1 patch topical DAILY PRN mometasone-formoterol 200-5 mcg/actuation (Dulera) 2 puffs inhalation Q12H 30 days nebulizers As directed pen needle, diabetic (BD Kaye 2nd Gen Pen Needle) USE DIRECTED prednisone PO daily; Take 6 tabs daily x 3 days, then 5 tabs x 3 days, then 4 tabs x 3 days, then 3 tabs x 3 days, then 2 tabs daily x 3 days, then 1 tab x 3 days to complete. 18 days roflumilast TAKE 1 TABLET BY MOUTH EVERY DAY tiotropium bromide 2.5 mcg/actuation (Spiriva Respimat) 2 puffs inhalation DAILY 30 days tirzepatide (Mounjaro) 10 mg (0.5 mL) subcut QWEEK HPI Comments Details: This is a 49-year-old female with a past medical history of asthma, seasonal allergies and type 2 diabetes presenting for diabetic management. She has a family history of type 2 diabetes on her paternal side. No known complications. Current medications: Mounjaro 10 mg weekly and Toujeo 60 units and lispro sliding scale. She has not needed to use her lispro at all within the last few weeks. She endorses acid reflux after administration of Mounjaro. She has been using her 's heartburn medication. She does not want to decrease the dose because she is very happy with her weight loss and her blood sugars. She denies abdominal pain and vomiting. Sliding scale: <150 0 units 151-200 4 units 201-250 6 units 251-300 8 units 301-350 10 units >350 12 units Scale if average glucose is 160 120-200 6 units 201-250 8 units 251-300 10 units over 300 12 units Hemoglobin A1c 04/19/2024: 7.2% Reviewed Jeffrey 3 download: Average glucose 127 G OH 6.3% Glucose variability 21.5% Very high 0% High 5% Target range 95% 0% hypoglycemia CGM active 85% of the time. The majority of her glucose readings are within target range during a 24 hour period. Patient says she had 1 low blood sugar at 76 within the past month. She treated this, and her symptoms resolved. No hypertension. Atorvastatin 10 mg taken for hyperlipidemia. ROS: Constitutional: No fevers or chills Respiratory: No shortness of breath Cardiovascular: No chest pain Gastrointestinal: No anorexia, nausea, vomiting or diarrhea. No abdominal pain or blood in stool. Neurologic: No headache, dizziness, syncope Endocrine: No cold or heat intolerance. No polyuria or polydipsia. Physical exam: Constitutional: Alert, in no distress. Head: Normocephalic. Neck: Supple, Full range of motion. No lymphadenopathy. Abdomen: Soft, nontender, no rebound or guarding. Normoactive bowel sounds in 4 quadrants. No palpable masses. Respiratory: Clear to auscultation. Cardiovascular: S1 S2 regular. No murmurs. [facility] Medical History (Updated 04/19/24 @ 11:54 by ILA Peña) Diabetes mellitus, type II, insulin dependent Bronchopneumonia Chronic allergic rhinitis Asthma Lichen sclerosus of female genitalia Diabetes mellitus Surgical History History of nasal surgery (~1995) History of tubal ligation (~2013) Family History Maternal Grandmother Colon cancer Social History Household Members: Family Housing: House Do you presently have visiting nurse or other home services: No Alcohol intake: current Alcohol intake frequency: holidays/special occasions only Patient Tobacco Use Status: Never used Tobacco e-Cigarette/Vaping Use: Never Used Advance Directives Date on File: 10/25/21 service: No Current occupational status: employed 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 Sexual orientation: Straight/Heterosexual Female Reproductive History Menstrual Age of Menarche: 13 Physical Exam Vital Signs: BMI result Body Mass Index 31.0 Office Procedures Glucose Monitoring Details Details: See [facility] [address] - Glucose monitoring, continuous-physician I&R Procedure code (CPT) selection complete Results Reviewed Results Reviewed: Laboratory Tests 01/11/24 01/26/24 01/26/24 13:13 10:10 10:16 Creatinine 0.69 Estimated GFR > 60 Hgb A1c (Clinic) 6.5 H Triglycerides 148 Cholesterol 192 LDL Cholesterol, Calc 112 H HDL Cholesterol 51 TSH 0.96 Urine Creatinine 113.08 Urine Microalbumin 6.0 Microalb/Creat Ratio 5.3 Assessment & Plan Assessment & Plan (1) Diabetes mellitus, type II, insulin dependent: Code(s): E11.9 - Type 2 diabetes mellitus without complications; 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 Discussed pathophysiology of Type II Diabetes Mellitus with the patient in detail.? I explained the [facility] risks and complications associated with uncontrolled diabetes including nephropathy, neuropathy, peripheral vascular disease, retinopathy, increased risk of heart disease and stroke.? Discussed lifestyle modification with the patient. Recommended 30 minutes of moderately vigorous exercise 5 days per week to promote weight loss. She can try reducing Toujeo to 55 units every evening. Continue Mounjaro 10 mg weekly. She is having some GI side effects. She will try famotidine 20 mg twice daily for 2 weeks and then discontinue it. She does not want to reduce the dose at this time. Avoid spicy and acidic foods. I will keep lispro on her med list, but she has not needed to administer this per the sliding scale in the last few weeks. Patient elects to follow up in 4 weeks for re-evaluation. She says this helps with compliance to have regular visits. Orders: Orders AMB Glucose Monitoring Today ILA Peña E11.9 - Type 2 diabetes mellitus without complications Medications: New famotidine (Pepcid) 20 mg PO BID 14 days 28 tabs 0RF ILA Peña Changed From Toujeo Max U-300 SoloStar (insulin glargine U-300 conc) 60 units (0.2 mL) subcut DAILY 6 mL 4RF NS E11.9 - Type 2 diabetes mellitus without complications To insulin glargine U-300 conc (Toujeo Max U-300 SoloStar) 55 units subcut DAILY E11.9 - Type 2 diabetes mellitus without complications Sincere Mckinney MD Coding Level of Care Code Est Pt Level 4 (48422) Diagnoses Diabetes mellitus, type II, insulin dependent E11.9; Z79.4 CPT Codes Details - CPT: 95513 - Glucose monitoring, continuous-physician I&R ([id number])
[2024-06-11 09:30] VITALS: BP 104/64; PULSE 97; O2SAT 97; BMI 31.0
[2024-06-11 09:39] LABS: Glucose, Whole Blood 116 mg/dL (60-115)
== END 2024-06-11 09:58 | disposition home or self-care (01) ==
PROVIDERS: PCP Internal Medicine; Visit Provider Physician Assistant Medical
DX: E11.9 Type 2 diabetes mellitus without complications (principal); Z79.4 Long term (current) use of insulin

== ENCOUNTER → 2024-06-11 09:26 | Outpatient (BNVA) | payer MEDICAID, SELFPAY | PROVIDERS: PCP Internal Medicine; Visit Provider Physician Assistant Medical | DX: E11.9 Type 2 diabetes mellitus without complications (principal); Z79.4 Long term (current) use of insulin | CPT/HCPCS: 82947; 99212 ==

== ENCOUNTER 2024-06-30 08:43 | Emergency (ER) | payer MEDICAID, SELFPAY ==
--- NOTE | ~2024-06-30 | XR_ITS ---
CLINICAL HISTORY: SOB 1 view chest x-ray Comparison: CR/SR - XR CHEST 1V - 07/03/23 21:17 EDT Findings: Lungs are well inflated. Mediastinal contours, cardiac silhouette, and pulmonary vasculature are within normal limits. No focal areas of consolidation. No pleural effusion. IMPRESSION: 1. No acute findings. This document has been electronically signed by: León Zaldivar MD on 06/30/2024 10:06:03
[2024-06-30 08:45] VITALS: BP 138/81; PULSE 124; RESP 22; TEMP 36.1; O2SAT 95; BMI 30.6
--- NOTE | 2024-06-30 09:03 | ED.ASTHMA ---
HPI - Asthma General Chief Complaint: Asthma Stated Complaint: difficulty breathing Time Seen by Provider: 06/30/24 08:51 Source: patient Mode of arrival: ambulatory Limitations: no limitations History of Present Illness HPI Narrative: This is a 49 years old the patient with a history of asthma presented to emergency department with a chief complaint of shortness of breath she has been worse since Monday, she has a home nebulizer but despite that she still complaining of shortness of breath and wheezing. No fever. Patient a prior hospitalization for asthma exacerbation last one was June 2023 MD complaint: shortness of breath and wheezing Onset (ago): day(s) (2) Severity: moderate Associated symptoms: none Related Data Current Asthma Therapy: none Home Medications ?Medication ?Instructions ?Recorded ?Confirmed blood sugar diagnostic #10 ea 05/08/20 06/11/24 acetaminophen 500 mg tablet 1,000 mg PO Q4H PRN Fever Or Pain 05/26/22 06/11/24 (Tylenol Extra Strength) cyclobenzaprine 10 mg tablet 10 mg PO DAILY PRN Muscle Spasm 05/26/22 06/11/24 fluticasone propionate 50 1 spray intranasal DAILY PRN 05/26/22 06/11/24 mcg/actuation nasal Allergy Symptoms spray,suspension ibuprofen 200 mg tablet (Advil) 200 mg PO Q6H PRN Pain 05/26/22 06/11/24 lidocaine 5 % topical patch 1 patch topical DAILY PRN Pain 05/26/22 06/11/24 nebulizers 01/04/23 06/11/24 ipratropium 0.5 mg-albuterol 3 mg 3 ml inhalation QID PRN Shortness 07/04/23 06/11/24 (2.5 mg base)/3 mL nebulization Of Breath Or Wheezing soln insulin glargine U-300 conc 300 55 unit subcut DAILY 06/11/24 06/11/24 unit/mL (3 mL) subcutaneous pen (Toujeo Max U-300 SoloStar) Previous Rx's ?Medication ?Instructions ?Recorded budesonide 0.5 mg/2 mL suspension 0.5 mg (2 mL) inhalation BID 30 06/19/20 for nebulization days #120 mL blood-glucose meter (FreeStyle #1 ea 06/10/22 Lite Meter kit) lancets 33 gauge #100 ea 06/10/22 budesonide-formoterol HFA 160 2 puff inhalation BID 30 days 01/04/23 mcg-4.5 mcg/actuation aerosol #10.2 grams inhaler (Symbicort) blood-glucose sensor (FreeStyle #2 ea 09/07/23 Jeffrey 3 Sensor device) blood sugar diagnostic (FreeStyle #100 strips 09/15/23 Lite Strips) lancets 28 gauge (FreeStyle #100 ea 09/15/23 Lancets) pen needle, diabetic 32 gauge x #50 ea 09/15/23 (BD Kaye 2nd Gen Pen Needle) budesonide 160 mcg-glycopyr 9 2 inh inhalation BID 30 days #10.7 01/26/24 mcg-formot 4.8 mcg/actuation HFA grams inhaler (Breztri Aerosphere) codeine 10 mg-guaifenesin 100 mg/5 10 ml PO Q6H PRN cough 10 days 01/26/24 mL oral liquid #300 mL prednisone 10 mg tablet See Rx Instructions PO DAILY 18 01/26/24 days #63 tabs mometasone-formoterol HFA 200 2 puff inhalation Q12H 30 days #13 01/29/24 mcg-5 mcg/actuation aerosol grams inhaler (Dulera) tiotropium bromide 2.5 2 puff inhalation DAILY 30 days #1 01/29/24 mcg/actuation mist for inhalation ea (Spiriva Respimat) roflumilast 500 mcg tablet See Rx Instructions .Route 02/12/24 .COMPLEX #90 tabs benralizumab 30 mg/mL subcutaneous 30 mg subcut Q8W 8 weeks #1 mL 02/14/24 auto-injector (Fasenra Pen) atorvastatin 20 mg tablet 10 mg (1/2 x 20 mg) PO BEDTIME 30 02/15/24 days #15 tabs insulin lispro 100 unit/mL 1 sliding scale dose subcut 03/11/24 subcutaneous half-unit pen USEASDIRECTD #15 mL (Humalog Rusty KwikPen (U-100)) albuterol sulfate 90 mcg/actuation 2 puff PO Q6H PRN for wheezing #18 05/28/24 aerosol inhaler (Ventolin HFA) grams tirzepatide 10 mg/0.5 mL 10 mg (0.5 mL) subcut QWEEK #2 mL 02/20/25 subcutaneous pen injector (Kadi) famotidine 20 mg tablet (Pepcid) 20 mg PO BID 14 days #28 tabs 06/11/24 prednisone 20 mg tablet 60 mg (3 x 20 mg) PO DAILY #12 tabs 06/30/24 Allergies Allergy/AdvReac Type Severity Reaction Status Date / Time No Known Allergies Allergy Verified 06/30/24 08:47 Review of Systems Cardiovascular: Cardiovascular: Reports no additional cardiovascular complaints and Reports dyspnea Respiratory: Respiratory: Reports dyspnea and Reports wheezing Gastrointestinal: Gastrointestinal: Reports no additional gastrointestinal complaints Allergic/Immunologic: Allergic/Immunologic: Reports wheezing [facility] Past Medical History Medical History Diabetes mellitus, type II, insulin dependent Bronchopneumonia Chronic allergic rhinitis Asthma Lichen sclerosus of female genitalia Diabetes mellitus Surgical History History of nasal surgery (~1995) History of tubal ligation (~2013) Family History Family History Maternal Grandmother Colon cancer Social History Social History Household Members: Family Housing: House Do you presently have visiting nurse or other home services: No Alcohol intake: current Alcohol intake frequency: holidays/special occasions only Patient Tobacco Use Status: Never used Tobacco e-Cigarette/Vaping Use: Never Used Advance Directives: Yes Advance Directives on File: Yes Advance Directives Date on File: 10/25/21 service: No Current occupational status: employed 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 Sexual orientation: Straight/Heterosexual Physical Exam Vital Signs: Vital Signs: Last Vital Signs Temp 97.0 F 06/30/24 08:45 Pulse 119 H 06/30/24 10:43 Resp 18 06/30/24 10:43 BP 116/73 06/30/24 10:43 Pulse Ox 96 06/30/24 10:43 O2 Del Method Room Air 06/30/24 10:43 BMI result Body Mass Index 30.6 Patient is in mild distress tachypneic with a respiration rate 20 do a tachycardic heart rate 122 Const: General: cooperative Nutritional Appearance: average body habitus Orientation/consciousness: patient oriented x3 HEENT: Head: Yes normal to inspection Face and sinus: Yes normal facial exam Mouth: Normal oral and palatal mucosa present Throat: Yes posterior oropharynx normal Neck: Neck: Yes normal visual inspection Resp: Auscultation: wheezes Cardio: Jugular venous distension: no JVD Rate: regular rate Rhythm: regular rhythm GI: Inspection: Yes normal to inspection Palpation (GI): Soft to palpation, not firm and nontender Skin: General skin exam: no rashes or lesions noted and elasticity normal Neuro: General: patient oriented x3 Course Reevaluation(s) Reevaluation #1: On re-examination she is doing much better now lungs are clear, respiration rate down to 18, O2 sat 96% on room air, she is a bit tachycardic 119 by she had beta 2 agonist. She wants to go home she is feeling much better chest x-ray was negative viral panel negative Time: 11:06 Medications Administered Discontinued Medications Generic Name Dose Route Start Last Admin Trade Name Freq PRN Reason Stop Dose Admin Albuterol Sulfate 2.5 mg/ 0 mg 06/30/24 09:11 06/30/24 09:14 Albuterol/Ipratropium 3 ml INHALE 06/30/24 09:12 5 dose ONCE ONE Administration Methylprednisolone Sodium Succinate 125 mg 06/30/24 09:01 06/30/24 09:17 Methylprednisolone Sod Succ 125 Mg/2 Ml Vial IVPUSH 06/30/24 09:02 125 mg ONCE ONE Administration Medical Decision Making Medical Decision Making [facility] Narrative: Patient presented with shortness of breath wheezing will administer bronchodilator Solu-Medrol we will do a chest x-ray and reassessed Differential Diagnosis Differential Diagnoses: The differential diagnosis associated with the presentation includes Asthma exacerbation/pneumonia/pneumothorax Admission/Observation Consideration of admission/observation: Escalation of care including admission/observation considered Lab Data MDM Lab Attestation statement: I reviewed the patient's lab results. 06/30/24 09:14 06/30/24 09:14 Labs: Lab Results 06/30/24 Range/Units 09:14 WBC 4.3 L (4.8-10.8) X10*3/uL RBC 4.65 (4.20-5.50) X10*6/uL Hgb 13.0 (12.0-16.0) g/dl Hct 36.4 L (37.0-47.0) % MCV 78.3 L (80.0-98.0) fL MCH 28.0 (27.0-33.0) pg MCHC 35.7 H (31.0-35.0) g/dl RDW 12.9 (11.0-16.0) % Plt Count 273 (160-400) X10*3/uL MPV 9.9 (9.4-12.3) fL Immature Gran % (Auto) 0.5 H (0.0-0.4) % Neut % (Auto) 75.9 H (45-73) % Lymph % (Auto) 15.3 L (20-40) % [place] % (Auto) 8.1 (2-11) % Eos % (Auto) 0.0 (0-4) % Baso % (Auto) 0.2 (0-2) % Lymph # (Auto) 0.7 L (1.2-4.9) X10*3/uL [place] # (Auto) 0.4 (0.1-1.2) X10*3/uL Eos # (Auto) 0.0 (0.0-0.4) X10*3/uL Baso # (Auto) 0.0 (0.0-0.2) X10*3/uL Abs Immat Gran (auto) 0.02 (0.00-0.03) X10*3/uL Absolute Neuts (auto) 3.3 (2.0-8.3) x10*3/uL Absolute Nucleated RBC 0.000 (0.0-0.012) X10*3/uL Nucleated RBC % (auto) 0.0 (0.0-0.2) /100WBC Sodium 138 (135-145) mmol/L Potassium 4.0 (3.3-5.1) mmol/L Chloride 109 H (96-108) mmol/L Carbon Dioxide 21 L (22-29) mmol/L Anion Gap 12 (12-20) BUN 6 L (9-16) mg/dL Creatinine 0.65 (0.5-1.4) mg/dL Estim Creat Clear Calc 92.1 Estimated GFR > 60 Random Glucose 135 H (60-115) mg/dL Calcium 8.9 (8.4-10.2) mg/dL Total Bilirubin 0.4 (0.0-1.0) mg/dL AST 20 (5-31) U/L ALT 31 (0-31) U/L Alkaline Phosphatase 93 (39-117) U/L Troponin I High Sens < 2.7 (<3.5-17.0) ng/L Total Protein 7.7 (6.5-8.0) g/dL Albumin 4.0 (3.5-5.0) g/dL Influenza Type A (PCR) NEGATIVE (Negative) Influenza Type B (PCR) NEGATIVE (Negative) RSV RNA Qual (PCR) NEGATIVE (Negative) SARS-CoV-2 RNA (RT-PCR) NEGATIVE (Negative) Independent Interpretation I performed an independent interpretation of an: Plain X-Ray Interpretation: Not acute disease Radiology Impression Discussion of test interpretation with radiology: I have reviewed the radiologist's reading. External Record Review External record reviewed: Inpatient record Chronic Conditions Patient?s care impacted by: Other (Asthma) Critical Care Time Critical Care Time Critical Care Time: Yes Total Critical Care Time: 60 Attestation: Multiple nebs [id number] Discharge Plan Discharge Clinical Impression: Asthma exacerbation Qualifiers: Asthma severity: moderate Asthma persistence: unspecified Qualified Code(s): J45.901 - Unspecified asthma with (acute) exacerbation Patient Disposition: Home, Self-Care Instructions: Asthma (ED) Additional Instructions: Follow-up with your primary care physician, we called a prescription for your for prednisone to your pharmacy. Return to the emergency room if you worse Prescriptions: New prednisone 20 mg tablet 60 mg PO DAILY Qty: 12 0RF No Action (DME) FreeStyle Lite Strips Strip See Rx Instructions .ROUTE .COMPLEX Qty: 100 5RF Dose Instruction: CHECK 4 TIMES A DAY DIRECTED Rx Instructions: CHECK 4 TIMES A DAY DIRECTED (DME) pen needle, diabetic [BD Kaye 2nd Gen Pen Needle] 32 gauge x /32 needle See Rx Instructions .ROUTE .COMPLEX Qty: 50 5RF Dose Instruction: USE DIRECTED Rx Instructions: USE DIRECTED (DME) lancets [FreeStyle Lancets] 28 gauge misc See Rx Instructions .ROUTE .COMPLEX Qty: 100 2RF Dose Instruction: CHECK 4 TIMES A DAY DIRECTED Rx Instructions: CHECK 4 TIMES A DAY DIRECTED codeine-guaifenesin 10-100 mg/5 mL liquid 10 ml PO Q6H PRN (Reason: cough) 10 Days Qty: 300 0RF Dulera 200-5 mcg/actuation HFA aerosol inhaler 2 puff inhalation Q12H 30 Days Qty: 13 11RF Spiriva Respimat 2.5 mcg/actuation mist 2 puff inhalation DAILY 30 Days Qty: 1 11RF roflumilast 500 mcg tablet See Rx Instructions .ROUTE .COMPLEX Qty: 90 2RF Dose Instruction: TAKE 1 TABLET BY MOUTH EVERY DAY Rx Instructions: TAKE 1 TABLET BY MOUTH EVERY DAY Fasenra Pen 30 mg/mL auto-injector 30 mg subcut Q8W 56 Days Qty: 1 6RF atorvastatin 20 mg tablet 10 mg PO BEDTIME 30 Days Qty: 15 11RF insulin lispro [Humalog Rusty KwikPen U-100] 100 unit/mL insulin pen, half-unit 1 sliding scale dose subcut USEASDIRECTD Qty: 15 0RF Rx Instructions: BG <111 0 units, 111-150 - 0 units, 151-200 4 units, 201-250 6 units, 251-300 8 units, 301-350 10 units, >350 12 units albuterol sulfate [Ventolin HFA] 90 mcg/actuation HFA aerosol inhaler 2 puff PO Q6H PRN (Reason: for wheezing) Qty: 18 11RF Mounjaro 10 mg/0.5 mL pen injector 10 mg subcut QWEEK Qty: 2 2RF ipratropium-albuterol 0.5 mg-3 mg(2.5 mg base)/3 mL solution for nebulization 3 ml inhalation QID PRN (Reason: Shortness Of Breath Or Wheezing) budesonide 0.5 mg/2 mL suspension for nebulization 0.5 mg inhalation BID 30 Days Qty: 120 11RF (DME) blood sugar diagnostic Strip See Rx Instructions Not Applicable QID Qty: 10 Rx Instructions: As directed cyclobenzaprine 10 mg tablet 10 mg PO DAILY PRN (Reason: Muscle Spasm) lidocaine 5 % adhesive patch,medicated 1 patch topical DAILY PRN (Reason: Pain) Rx Instructions: leave on most painful area for up to 12 hrs acetaminophen [Tylenol Extra Strength] 500 mg tablet 1,000 mg PO Q4H PRN (Reason: Fever Or Pain) ibuprofen [Advil] 200 mg tablet 200 mg PO Q6H PRN (Reason: Pain) (DME) blood-glucose meter [FreeStyle Lite Meter] Kit See Rx Instructions .Route Qty: 1 0RF Rx Instructions: As directed checks 4 X/day (DME) lancets 33 gauge misc See Rx Instructions .ROUTE QID Qty: 100 0RF Rx Instructions: As directed checks 4 X/day fluticasone propionate 50 mcg/actuation spray,suspension 1 spray intranasal DAILY PRN (Reason: Allergy Symptoms) (DME) nebulizers Misc See Rx Instructions .Route Rx Instructions: As directed budesonide-formoterol [Symbicort] 160-4.5 mcg/actuation HFA aerosol inhaler 2 puff inhalation BID 30 Days Qty: 10.2 11RF Breztri Aerosphere 160-9-4.8 mcg/actuation HFA aerosol inhaler 2 inh inhalation BID 30 Days Qty: 10.7 4RF prednisone 10 mg tablet See Rx Instructions PO DAILY 18 Days Qty: 63 0RF Rx Instructions: PO daily; Take 6 tabs daily x 3 days, then 5 tabs x 3 days, then 4 tabs x 3 days, then 3 tabs x 3 days, then 2 tabs daily x 3 days, then 1 tab x 3 days to complete. famotidine [Pepcid] 20 mg tablet 20 mg PO BID 14 Days Qty: 28 0RF insulin glargine U-300 conc [Toujeo Max U-300 SoloStar] 300 unit/mL (3 mL) insulin pen 55 unit subcut DAILY (DME) FreeStyle Jeffrey 3 Sensor Device See Rx Instructions .Route Qty: 2 5RF Rx Instructions: As directed change every 14 days Print Language: Pakistani
[2024-06-30] MEDS: Albuterol Sulfate 2.5 MG, Albuterol/Iprat 2.5/0.5MG 3 ML 3 ML INHALE (09:14)
[2024-06-30 09:17] LABS: MANUAL DIFF FLAG NO
[2024-06-30] MEDS: methylPREDNISolone Sod Succ 125 MG/2 ML VIAL IVPUSH (09:17)
[2024-06-30 09:18] VITALS: PULSE 122; RESP 20; O2SAT 95
[2024-06-30 09:21] LABS: Basophils Percent Auto 0.2 % (0-2); Hematocrit 36.4 % (37.0-47.0); Imm Gran Abs Auto 0.02 X10*3/uL (0.00-0.03); Imm Gran Pct Auto 0.5 % (0.0-0.4); Lymphocytes Absolute Auto 0.7 X10*3/uL (1.2-4.9); Lymphocytes Percent Auto 15.3 % (20-40); Mean Corpuscular HGB Conc 35.7 g/dl (31.0-35.0); Mean Corpuscular Volume 78.3 fL (80.0-98.0); Mean Platelet Volume 9.9 fL (9.4-12.3); Monocytes Absolute Auto 0.4 X10*3/uL (0.1-1.2); Monocytes Percent Auto 8.1 % (2-11); Neutrophils Absolute Auto 3.3 x10*3/uL (2.0-8.3); Neutrophils Percent Auto 75.9 % (45-73); Platelet Count 273 X10*3/uL (160-400); Red Blood Count 4.65 X10*6/uL (4.20-5.50); Red Cell Distribution Width 12.9 % (11.0-16.0); White Blood Count 4.3 X10*3/uL (4.8-10.8)
[2024-06-30 09:39] LABS: Alanine Aminotransferase 31 U/L (0-31); Alkaline Phosphatase 93 U/L (39-117); Anion Gap 12 (12-20); Aspartate Amino Transferase 20 U/L (5-31); Bilirubin Total 0.4 mg/dL (0.0-1.0); Blood Urea Nitrogen 6 mg/dL (9-16); Calcium 8.9 mg/dL (8.4-10.2); Carbon Dioxide 21 mmol/L (22-29); Chloride 109 mmol/L (96-108); Creatinine Clr Calc Pharmacy 92.1; Estimated Glomerular Filt Rate > 60; Glucose Random 135 mg/dL (60-115); Sodium 138 mmol/L (135-145); Total Protein 7.7 g/dL (6.5-8.0)
[2024-06-30 10:29] LABS: Troponin-I High Sensitivity < 2.7 ng/L (<3.5-17.0)
[2024-06-30 10:31] LABS: Influenza A PCR NEGATIVE (Negative); Influenza B PCR NEGATIVE (Negative); Resp Syncy Virus RNA Qual PCR NEGATIVE (Negative); SARS COV2 PCR INHOUSE NEGATIVE (Negative)
[2024-06-30 10:43] VITALS: BP 116/73; PULSE 119; RESP 18; TEMP 36.3; O2SAT 96
[2024-06-30 11:21] VITALS: BP 116/73; PULSE 119; RESP 18; TEMP 36.3; O2SAT 96
== END 2024-06-30 11:30 | disposition home or self-care (01) ==
PROVIDERS: Emergency Provider Emergency Medicine
DX: J45.901 Unspecified asthma with (acute) exacerbation (principal); R06.02 Shortness of breath; E11.9 Type 2 diabetes mellitus without complications; Z79.899 Other long term (current) drug therapy; Z03.818 Encounter for observation for suspected exposure to other biological agents ruled out
CPT/HCPCS: 0241U; 36415; 71045; 80053; 84484; 85025; 94640; 96374; 99283; 99284; J2919

== ENCOUNTER → 2024-06-30 09:02 | Outpatient (BNV) | payer MEDICAID, SELFPAY | PROVIDERS: Emergency Provider Emergency Medicine; Visit Provider Radiology Diagnostic Radiology | DX: R06.02 Shortness of breath (principal) | CPT/HCPCS: 71045 ==

== ENCOUNTER 2024-07-19 09:20 | Outpatient (AMB) | payer MEDICAID, SELFPAY ==
[2024-07-19 09:26] VITALS: BP 109/62; PULSE 96; O2SAT 96; BMI 29.7
--- NOTE | 2024-07-19 09:26 | MHC.OFFVIS ---
Vital Signs 07/19/24 09:26 Height 5 ft Weight 152 lb BMI 29.7 BP 109/62 Blood Pressure Location Rt brachial Position Sitting Pulse 96 Pulse Source Doppler Pulse Oximetry (%) 96 Oxygen Delivery Method Room Air Intake Visit Reasons: Asthma follow-up Allergies No Known Allergies Allergy (Verified 07/19/24 10:07) HPI Comments Details: The patient is a 49-year-old woman with known severe persistent asthma was recently admitted to [facility] with an asthma exacerbation. She has had multiple exacerbations requiring hospitalizations and has been taking prednisone off and on to treat her significant wheezing. 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 Apparently the patient was packing as she is moving was exposed to significant dust and resulted in her significant worsening symptoms requiring the admission to [facility]. When admitted her CBC with differential demonstrated 12% eosinophils which is more than 600 absolute eosinophils. She again responded well to prednisone and IV Solu-Medrol. We did adjust her medications. 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 Current the patient is taking 40 mg of prednisone and she is feeling better. We will start to taper the prednisone down at this time. She did get approved to start Fasenra. 07/21/2023 the patient is here for follow-up significant asthma exacerbation she had a chest x-ray which we personally reviewed demonstrating no acute disease. Her blood work was reassuring. Her eosinophils are now 0. She has been on the Fasenra then has been help him fall. The Fasenra injection is very affecting beneficial she will continue the injections every 8 weeks. The patient has been using her Symbicort. She still having some shortness of breath after being in the hospital and also having some wheezing. On examination she has inspiratory and expiratory wheezing suggesting more mucus plugging asthma. Therefore she is going to start some Mucinex. If she has no better if she starts getting more congested she can also start a course of doxycycline again. Hopefully she does not know. She is off the prednisone right now. The patient will see about getting the Prevnar 20 vaccine. She will stop by the pharmacy and asked to see if she is due for the vaccine at this time. Will follow-up in 6 months or sooner if any other issues arise. 01/26/2024 the patient is here for pulmonary follow-up visit. She still struggling with the asthma. Still requiring her albuterol on a daily basis. She continues uses Symbicort as prescribed. The patient had been doing very well on Fasenra but she has not been keeping up with the injections. At this point based on her worsening symptoms she needs to be more adherent to the therapy. She understands that she has been forgetful. Will go ahead and request additional blood work to see Fasenra still the best option for her. Although at this point her eosinophils continue to be significantly elevated and her IgE appears to be okay. No recent imaging studies to review. The patient just completed a course of prednisone. Will go ahead and request the patient restarts her Fasenra shots this time. In addition to that I do believe that we can optimize her respiratory therapy by switching over to Breztri. 07/19/2024 the patient is here for pulmonary follow-up visit. Overall she is doing excellent. She is responding very also the Fasenra every 2 months and also did Dulera and Spiriva also have been affected. She has not been taking the Daliresp as much. Therefore will go ahead and stop it. She is having significant abdominal discomfort which may be related to the Daliresp in part. She is also on a GLP 1 inhibitor that can also cause significant dysmotility and abdominal discomfort. I explained to her likely that her discomfort is coming from that. She was sick back in June. She did go to the ER for worsening respiratory symptoms likely a respiratory viral syndrome resulting in some activation of her asthma. She did require some prednisone at that point but she clear quickly. The patient has not been requiring her rescue inhaler any longer. Her lungs are completely clear. Overall she is very good. As far as her abdominal discomfort they did check her LFTs when she went to the ER and I did reassure her with dose. The patient needs to be closely monitored for the GLP 1 adverse effects. For now although she will stop the Daliresp at that also can affect her GI system. [facility] Medical History (Updated 07/21/24 @ 21:42 by Chad Sexton MD) Upper abdominal pain Diabetes mellitus, type II, insulin dependent Bronchopneumonia Chronic allergic rhinitis Asthma Lichen sclerosus of female genitalia Diabetes mellitus Surgical History History of nasal surgery (~1995) History of tubal ligation (~2013) Family History Maternal Grandmother Colon cancer Social History Household Members: Family Housing: House Do you presently have visiting nurse or other home services: No Alcohol intake: current Alcohol intake frequency: holidays/special occasions only Patient Tobacco Use Status: Never used Tobacco e-Cigarette/Vaping Use: Never Used Advance Directives Date on File: 10/25/21 service: No Current occupational status: employed 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 Sexual orientation: Straight/Heterosexual Female Reproductive History Menstrual Age of Menarche: 13 Review of Systems Const Denies chills, Denies fatigue, Denies malaise and Denies night sweats ENT Denies change in voice, Denies lip swelling, Denies mouth pain, Reports nasal congestion, Reports nasal discharge and Denies tongue swelling Card Denies chest pain, Denies dyspnea and Reports dyspnea on exertion Resp Denies change in phlegm color, Reports cough, Denies hemoptysis, Denies pain on inspiration, Denies pain with cough, Denies dyspnea, Reports dyspnea on exertion and Reports wheezing GI Reports abdominal pain Musc Denies no additional complaints Neuro Denies Neuro-related abnormal movements Psych Denies no additional complaints Endo Denies fatigue Zain/Lymph Denies easy bleeding and Denies lymphadenopathy Aller/Immun Denies lip swelling, Denies tongue swelling and Reports wheezing Physical Exam Vital Signs: Last Vital Signs Pulse 96 07/19/24 09:26 BP 109/62 07/19/24 09:26 Pulse Ox 96 07/19/24 09:26 Oxygen Delivery Method Room Air 07/19/24 09:26 BMI result Body Mass Index 29.7 Const General: cooperative Orientation/consciousness: patient oriented x3 Neck Neck: Yes normal visual inspection, Yes full ROM and Yes no lymphadenopathy Chest Chest palpation & inspection: normal inspection of the chest Resp Auscultation: clear to auscultation bilaterally and no wheezes Cardio Rate: regular rate Rhythm: regular rhythm Heart sounds: S1 normal heart sound present and S2 normal heart sound present GI Palpation (GI): Soft to palpation and nontender Auscultation: normal bowel sounds General: Yes no CVA tenderness Back/Spine/Pelvis Back: no CVA tenderness Skin General skin exam: rashes and/or lesions noted Neuro General: patient oriented x3 Results AMB Hemoglobin A1c AMB Hemoglobin A1c 6.8 % Last Edit by EARNESTINE Clark on 07/19/24 10:22 Assessment & Plan Assessment & Plan (1) Asthma: Code(s): J45.909 - Unspecified asthma, uncomplicated Category: Medical Qualifiers: Asthma complication type: uncomplicated Asthma persistence: persistent Asthma severity: severe Qualified Code(s): J45.50 - Severe persistent asthma, uncomplicated (2) Chronic allergic rhinitis: Code(s): J30.9 - Allergic rhinitis, unspecified Category: Medical (3) Abdominal pain: Code(s): R10.9 - Unspecified abdominal pain Category: Medical Qualifiers: Abdominal location: epigastric Qualified Code(s): R10.13 - Epigastric pain Plan Dulera Spiriva KEREN as needed stop Daliresp continue Fasenra [id number] bloodwork Follow-up in 12 months Orders: Orders Lipase 07/19/24 R10.9 - Unspecified abdominal pain Medications: Discontinued roflumilast Discontinued Reason: Doctor's Order TAKE 1 TABLET BY MOUTH EVERY DAY 90 tabs 2RF Coding Level of Care Code Est Pt Level 4 (46612) Diagnoses Severe persistent asthma without complication J45.50 Asthma complication type: uncomplicated Asthma persistence: persistent Asthma severity: severe Chronic allergic rhinitis J30.9 Epigastric pain R10.13 Abdominal location: epigastric Time Spent (min) 16
== END 2024-07-19 09:48 | disposition home or self-care (01) ==
LOC: HO.HPS 09:20
PROVIDERS: PCP Internal Medicine; Visit Provider Hospitalist
DX: J45.50 Severe persistent asthma, uncomplicated (principal); J30.9 Allergic rhinitis, unspecified; R10.13 Epigastric pain
CPT/HCPCS: 99214

== ENCOUNTER → 2024-07-19 09:20 | Outpatient (BNVA) | payer MEDICAID, SELFPAY | PROVIDERS: PCP Internal Medicine; Visit Provider Hospitalist | DX: E11.9 Type 2 diabetes mellitus without complications (principal); R10.10 Upper abdominal pain, unspecified; J45.50 Severe persistent asthma, uncomplicated; J30.9 Allergic rhinitis, unspecified; R10.13 Epigastric pain; Z79.4 Long term (current) use of insulin | CPT/HCPCS: 82947; 83036; 99212 ==

== ENCOUNTER 2024-07-19 09:49 | Outpatient (AMB) | payer MEDICAID, SELFPAY ==
--- NOTE | 2024-07-19 10:03 | MHC.OFFVIS ---
Vital Signs 07/19/24 10:04 Height 5 ft Weight 153 lb 10.595 oz BMI 30.0 BP 94/62 Blood Pressure Location Rt brachial Position Sitting Pulse 65 Pulse Source Pulse Oximeter Pulse Oximetry (%) 97 Oxygen Delivery Method Room Air Intake Visit Reasons: T2DM Intake Note: Patient present today to follow up on Type 2 Diabetes Mellitus. Last Diabetic Eye exam: Due Last Podiatry Visit: Does not see a Temporary Office Assistant Random Glucose: 190mg/dl HgA1C: 6.8% 07/19/2024 Lining Repairer Required: No Accompanied by: Self / Same As Patient Allergies No Known Allergies Allergy (Verified 07/19/24 10:07) Medication List - Last Reconciled 07/19/24 by ILA Peña acetaminophen (Tylenol Extra Strength) 1,000 mg PO Q4H PRN albuterol sulfate 90 mcg/actuation (Ventolin HFA) 2 puffs PO Q6H PRN atorvastatin 10 mg PO BEDTIME benralizumab (Fasenra Pen) 30 mg subcut Q8W 8 weeks blood sugar diagnostic As directed blood sugar diagnostic (FreeStyle Lite Strips) CHECK 4 TIMES A DAY DIRECTED blood-glucose meter (FreeStyle Lite Meter kit) As directed checks 4 X/day blood-glucose sensor (FreeStyle Jeffrey 3 Sensor device) As directed change every 14 days budesonide 0.5 mg (2 mL) inhalation BID 30 days codeine-guaifenesin 10-100 mg/5 mL 10 mL PO Q6H PRN 10 days cyclobenzaprine 10 mg PO DAILY PRN famotidine (Pepcid) 20 mg PO BID 14 days fluticasone propionate 50 mcg/actuation 1 spray intranasal DAILY PRN ibuprofen (Advil) 200 mg PO Q6H PRN insulin glargine U-300 conc (Toujeo Max U-300 SoloStar) 55 units subcut DAILY insulin lispro (Humalog Rusty KwikPen (U-100)) 1 sliding scale dose subcut USEASDIRECTD ipratropium-albuterol 0.5 mg-3 mg(2.5 mg base)/3 mL 3 mL inhalation QID PRN lancets As directed checks 4 X/day lancets (FreeStyle Lancets) CHECK 4 TIMES A DAY DIRECTED lidocaine 5% 1 patch topical DAILY PRN mometasone-formoterol 200-5 mcg/actuation (Dulera) 2 puffs inhalation Q12H 30 days nebulizers As directed pen needle, diabetic (BD Kaye 2nd Gen Pen Needle) USE DIRECTED tiotropium bromide 2.5 mcg/actuation (Spiriva Respimat) 2 puffs inhalation DAILY 30 days tirzepatide (Mounjaro) 10 mg (0.5 mL) subcut QWEEK HPI Comments Details: This is a 49-year-old female with a past medical history of asthma, seasonal allergies and type 2 diabetes presenting for diabetic management. She has a family history of type 2 diabetes on her paternal side. No known complications. Current medications: Mounjaro 10 mg weekly and Toujeo 55 units and lispro sliding scale. Sliding scale: <150 0 units 151-200 4 units 201-250 6 units 251-300 8 units 301-350 10 units >350 12 units Scale if average glucose is 160 120-200 6 units 201-250 8 units 251-300 10 units over 300 12 units She has not taken lispro at all since she was last seen though she should have according to her scale. This is because she was treated for an asthma exacerbation and on prednisone, and patient says it takes her blood sugars a long time you come back down to baseline. Patient brings up GI symptoms today. She is unsure if they are related to Mounjaro, and she does not want to decrease or change the medication if she does not need to because she is very happy with her weight loss and with the effect on her blood sugar. She was noticing some acid reflux after administration, but this has resolved after she took a short course of famotidine. She endorses intermittent episodes of upper abdominal pain associated with nausea, and with 1 episode she had vomiting. She noticed symptoms after she ate dumplings 1 time so she is avoiding this food now. She has no known history of gallstones, but there is a family history of gallstones. She denies chest pain or shortness of breath at rest or with exertion. She denies chest pain associated with abdominal pain. She was in the emergency department for an asthma exacerbation in June, and she had an EKG that showed no ischemic changes and negative troponin. She also had a chest x-ray which showed no acute findings. LFTs were normal. Hemoglobin A1c today is 6.8%. Reviewed Jeffrey 3 download CGM active 86% Average glucose 186 G OH 7.8% Glucose variability 19.7% Very high 6% High 48% Target range 46% 0% hypoglycemia She has a pattern of postprandial and overnight hyperglycemia. No hypertension. Atorvastatin 10 mg taken for hyperlipidemia. ROS: Constitutional: No fevers or chills or unexplained weight loss. Respiratory: No shortness of breath, cough, wheezing or sputum production. No hemoptysis. Cardiovascular: No chest pain, palpitations or lower extremity edema. Gastrointestinal: No anorexia, diarrhea, blood in stools. See HPI Neurologic: No headache, dizziness, syncope Endocrine: No cold or heat intolerance. No polyuria or polydipsia. Physical exam: Constitutional: Alert, in no distress. Head: Normocephalic. Neck: Supple, Full range of motion. No lymphadenopathy. Abdomen: Soft, nontender, no rebound or guarding. Normoactive bowel sounds in 4 quadrants. No palpable masses. Respiratory: Clear to auscultation. Cardiovascular: S1 S2 regular. No murmurs. Extremities: Warm and well perfused, no edema [facility] Medical History (Updated 07/19/24 @ 10:40 by ILA Peña) Upper abdominal pain Diabetes mellitus, type II, insulin dependent Bronchopneumonia Chronic allergic rhinitis Asthma Lichen sclerosus of female genitalia Diabetes mellitus Surgical History History of nasal surgery (~1995) History of tubal ligation (~2013) Family History Maternal Grandmother Colon cancer Social History Household Members: Family Housing: House Do you presently have visiting nurse or other home services: No Alcohol intake: current Alcohol intake frequency: holidays/special occasions only Patient Tobacco Use Status: Never used Tobacco e-Cigarette/Vaping Use: Never Used Advance Directives Date on File: 10/25/21 service: No Current occupational status: employed 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 Sexual orientation: Straight/Heterosexual Female Reproductive History Menstrual Age of Menarche: 13 Physical Exam Vital Signs: Last Vital Signs Pulse 65 07/19/24 10:04 BP 94/62 07/19/24 10:04 Pulse Ox 97 07/19/24 10:04 Oxygen Delivery Method Room Air 07/19/24 10:04 BMI result Body Mass Index 30.0 Office Procedures Glucose Monitoring Details Details: See [facility] [address] - Glucose monitoring, continuous-physician I&R Procedure code (CPT) selection complete Results AMB Hemoglobin A1c AMB Hemoglobin A1c 6.8 % Last Edit by EARNESTINE Clark on 07/19/24 10:22 Results Reviewed Results Reviewed: Laboratory Last Values Glucose (Clinic) 190 mg/dL (60-115) H 07/19/24 10:11 Hgb A1c (Clinic) 6.8 % (4.0-6.0) H 07/19/24 10:17 Laboratory Tests 01/11/24 01/26/24 01/26/24 13:13 10:10 10:16 Creatinine 0.69 Estimated GFR > 60 Hgb A1c (Clinic) 6.5 H Triglycerides 148 Cholesterol 192 LDL Cholesterol, Calc 112 H HDL Cholesterol 51 TSH 0.96 Urine Creatinine 113.08 Urine Microalbumin 6.0 Microalb/Creat Ratio 5.3 Assessment & Plan Assessment & Plan (1) Diabetes mellitus, type II, insulin dependent: Code(s): E11.9 - Type 2 diabetes mellitus without complications; Z79.4 - half-way (current) use of insulin Category: Medical (2) Upper abdominal pain: Code(s): R10.10 - Upper abdominal pain, unspecified Category: Medical Plan: Differential includes gastritis, GERD, cholelithiasis. Patient has no symptoms today and vitals are normal. Denies fevers or chills. Warning signs warranting ER evaluation reviewed. Check lipase, amylase and abdominal ultrasound. Patient advised to call her primary care provider to review symptoms. We discussed that if workup is negative she needs to consider decreasing dose of Mounjaro or switching to alternative like Ozempic. Plan In summary this is a 49-year-old female with controlled type 2 diabetes. Her sugars have been a bit higher the last couple of weeks which is likely due to prednisone. She did not change her diet or routine. Advised her to administer lispro per sliding scale. She agreed. Discussed pathophysiology of Type II Diabetes Mellitus with the patient in detail.? I explained the usp risks and complications associated with uncontrolled diabetes including nephropathy, neuropathy, peripheral vascular disease, retinopathy, increased risk of heart disease and stroke.? Discussed lifestyle modification with the patient. Recommended 30 minutes of moderately vigorous exercise 5 days per week to promote weight loss. Continue Toujeo 55 units every evening. Continue Mounjaro 10 mg weekly. Continue lispro sliding scale. Follow up in 3 months for type 2 diabetes. Orders: Orders AMB Glucose Monitoring Today E11.9 - Type 2 diabetes mellitus without complications AMB Hemoglobin A1c Today E11.9 - Type 2 diabetes mellitus without complications, Z79.4 - half-way (current) use of insulin US abdomen complete Today R10.10 - Upper abdominal pain, unspecified Amylase Today R10.10 - Upper abdominal pain, unspecified Medications: New atorvastatin 10 mg PO BEDTIME 90 tabs 3RF Discontinued atorvastatin Discontinued Reason: Doctor's Order 10 mg (1/2 x 20 mg) PO BEDTIME 30 days 15 tabs 11RF Coding Level of Care Code Est Pt Level 4 (87454) Diagnoses Diabetes mellitus, type II, insulin dependent E11.9; Z79.4 Upper abdominal pain R10.10 CPT Codes Details - CPT: 05061 - Glucose monitoring, continuous-physician I&R ([id number])
[2024-07-19 10:04] VITALS: BP 94/62; PULSE 65; O2SAT 97
[2024-07-19 10:20] LABS: Glucose, Whole Blood 190 mg/dL (60-115)
== END 2024-07-19 10:44 | disposition home or self-care (01) ==
LOC: HO.ENCR 09:49
PROVIDERS: Visit Provider Physician Assistant Medical
DX: E11.9 Type 2 diabetes mellitus without complications (principal); Z79.4 Long term (current) use of insulin; R10.10 Upper abdominal pain, unspecified

== ENCOUNTER 2024-09-24 08:54 | Outpatient (AMB) | payer OTHER, SELFPAY ==
--- NOTE | 2024-09-24 08:55 | A.OFFVIS_ITS ---
Vital Signs 09/24/24 08:59 Height 5 ft Weight 161 lb 2.526 oz BMI 31.5 BP 104/72 Blood Pressure Location Lt brachial Position Sitting Pulse 90 Pulse Source Pulse Oximeter Pulse Oximetry (%) 96 Oxygen Delivery Method Room Air Intake Visit Reasons: Follow up ozempic Intake Note: Patient present today to follow up on Type 2 Diabetes Mellitus. Patient reports she is having headaches, dizziness, and upset GI for 2-3 days after she injects herself. Last Diabetic Eye exam: Due Last Podiatry Visit: Does not see a Overhead Cleaner Random Glucose: 177 mg/dl HgA1C: 6.8% 07/19/2024 Critical Care Physician Required: No Accompanied by: Self / Same As Patient Allergies metformin Adverse Reaction (Intermediate, Verified 09/24/24 09:00) GI side effect semaglutide [From Ozempic] Adverse Reaction (Intermediate, Verified 09/24/24 09:28) headaches, dizzy, nausea tirzepatide [From Mounjaro] Adverse Reaction (Verified 09/24/24 09:28) abdominal pain and vomiting trulicity Adverse Reaction (Intermediate, Uncoded 09/24/24 09:00) Abdominal Pain Medication List - Last Reconciled 09/24/24 by ILA Peña acetaminophen (Tylenol Extra Strength) 1,000 mg PO Q4H PRN albuterol sulfate 90 mcg/actuation (Ventolin HFA) 2 puffs PO Q6H PRN atorvastatin 10 mg PO BEDTIME benralizumab (Fasenra Pen) 30 mg subcut Q8W 8 weeks blood sugar diagnostic As directed blood sugar diagnostic (FreeStyle Lite Strips) CHECK 4 TIMES A DAY DIRECTED blood-glucose meter (FreeStyle Lite Meter kit) As directed checks 4 X/day blood-glucose sensor (FreeStyle Jeffrey 3 Plus Sensor device) Apply 1 new sensor every 15 days as directed to monitor blood glucose continuously. budesonide 0.5 mg (2 mL) inhalation BID 30 days codeine-guaifenesin 10-100 mg/5 mL 10 mL PO Q6H PRN 10 days cyclobenzaprine 10 mg PO DAILY PRN famotidine (Pepcid) 20 mg PO BID 14 days fluticasone propionate 50 mcg/actuation 1 spray intranasal DAILY PRN ibuprofen (Advil) 200 mg PO Q6H PRN insulin glargine U-300 conc (Toujeo Max U-300 SoloStar) 70 units subcut DAILY insulin lispro (Humalog Rusty ScottikPen (U-100)) 1 sliding scale dose subcut USEASDIRECTD ipratropium-albuterol 0.5 mg-3 mg(2.5 mg base)/3 mL 3 mL inhalation QID PRN lancets As directed checks 4 X/day lancets (FreeStyle Lancets) CHECK 4 TIMES A DAY DIRECTED lidocaine 5% 1 patch topical DAILY PRN liraglutide (Victoza 2-Saud) inject 0.6mg subcutaneously once daily x 7 days; then 1.2mg daily mometasone-formoterol 200-5 mcg/actuation (Dulera) 2 puffs inhalation Q12H 30 days nebulizers As directed pen needle, diabetic (BD Kaye 2nd Gen Pen Needle) USE DIRECTED tiotropium bromide 2.5 mcg/actuation (Spiriva Respimat) 2 puffs inhalation DAILY 30 days HPI Comments Details: This is a 49-year-old female with a past medical history of asthma, seasonal allergies and type 2 diabetes presenting for diabetic management. She has a family history of type 2 diabetes on her paternal side. No known complications. Hemoglobin A1c was 6.8% 07/19/2024. Reviewed Jeffrey 3 data September 11 to September 24 CGM active 96% Average glucose 198 G VT 8% Glucose variability 25.5% Very high 16% High 43% Target range 41% Hypoglycemia 0% Hyperglycemia improves overnight and increases over the course of the day. Current medications: Ozempic 0.25 and Toujeo 70 units and lispro sliding scale. Sliding scale: <150 0 units 151-200 4 units 201-250 6 units 251-300 8 units 301-350 10 units >350 12 units Scale if average glucose is 160 or more 120-200 6 units 201-250 8 units 251-300 10 units over 300 12 units She switched Mounjaro to Ozempic because her insurance stopped covering Mounjaro. After stopping Mounjaro the GI symptoms that we discussed at her last visit resolved. She does notice the day after Ozempic she is nauseous, and she is having headaches and had dizziness after 1 injection. Past medications: Jardiance caused UTI, Trulicity caused abdominal pain, metformin caused GI side effects No hypertension. Atorvastatin 10 mg taken for hyperlipidemia. ROS: Constitutional: No fevers or chills or unexplained weight loss. Respiratory: No shortness of breath, cough, wheezing or sputum production. No hemoptysis. Cardiovascular: No chest pain, palpitations or lower extremity edema. Gastrointestinal: No abdominal pain, diarrhea, blood in stools, anorexia or vomiting. +nausea with Ozempic. Neurologic: No headache, dizziness, syncope Endocrine: No cold or heat intolerance. No polyuria or polydipsia. Physical exam: Constitutional: Alert, in no distress. Head: Normocephalic. Neck: Supple, Full range of motion. No lymphadenopathy. Respiratory: Clear to auscultation. Cardiovascular: S1 S2 regular. No murmurs. Extremities: Warm and well perfused, no edema [facility] Medical History (Updated 07/21/24 @ 21:42 by Chad Sexton MD) Upper abdominal pain Diabetes mellitus, type II, insulin dependent Bronchopneumonia Chronic allergic rhinitis Asthma Lichen sclerosus of female genitalia Diabetes mellitus Surgical History History of nasal surgery (~1995) History of tubal ligation (~2013) Family History Maternal Grandmother Colon cancer Social History Household Members: Family Housing: House Do you presently have visiting nurse or other home services: No Alcohol intake: current Alcohol intake frequency: holidays/special occasions only Patient Tobacco Use Status: Never used Tobacco e-Cigarette/Vaping Use: Never Used Advance Directives Date on File: 10/25/21 service: No Current occupational status: employed 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 Sexual orientation: Straight/Heterosexual Female Reproductive History Menstrual Age of Menarche: 13 Physical Exam Vital Signs: Last Vital Signs Pulse 90 09/24/24 08:59 BP 104/72 09/24/24 08:59 Pulse Ox 96 09/24/24 08:59 Oxygen Delivery Method Room Air 09/24/24 08:59 BMI result Body Mass Index 31.5 Office Procedures Glucose Monitoring Details Details: See [facility] [address] - Glucose monitoring, continuous-physician I&R Procedure code (CPT) selection complete Results Reviewed Results Reviewed: Laboratory Last Values Glucose (Clinic) 177 mg/dL (60-115) H 09/24/24 09:06 Assessment & Plan Assessment & Plan (1) Diabetes mellitus, type II, insulin dependent: Code(s): E11.9 - Type 2 diabetes mellitus without complications; Z79.4 - long-term (current) use of insulin Category: Medical Plan In summary this is a 49-year-old female with uncontrolled type 2 diabetes. Diabetes was previously controlled with Mounjaro, but her insurance stopped covering it. Her previous GI symptoms resolved after she stopped the medication so I do not recommend restarting it. She is not tolerating Ozempic. She would like to try another GLP 1 because she like to the benefit of weight loss, and they help to control her blood sugar. Trial of Victoza 0.6 mg daily for 1 week and then increase to 1.2 mg daily. If she experiences similar side effects to other GLP 1 she will stop it and contact the office. Continue Toujeo 70 units every evening. Continue lispro sliding scale. We discussed meeting with the informatics educator to discuss an insulin pump if she does not tolerate Victoza. She does not want to try Actos due to the possibility of weight gain with this medication. She is going to the gym 3 times a week and walking. She is following a healthy diet. She will follow up a month after starting Victoza. I instructed her to have lab work done a few days before her next visit. Orders: Orders TSH reflex Free T4 Today E11.9 - Type 2 diabetes mellitus without complicatio ns, Z79.4 - terminal clerk (current) use of insulin Lipid Panel Today E11.9 - Type 2 diabetes mellitus without complications, E78.5 - Hyperlipidemia, unspecified, Z79.4 - terminal clerk (current) use of insulin Aspartate Amino Transferase Today E11.9 - Type 2 diabetes mellitus without complications, Z79.4 - long-term (current) use of insulin Microalbumin, Random (w Creat) Today E11.9 - Type 2 diabetes mellitus without complications, Z79.4 - long-term (current) use of insulin AMB Glucose Monitoring Today E11.9 - Type 2 diabetes mellitus without complications Creatinine Today E11.9 - Type 2 diabetes mellitus without complications, Z79.4 - terminal clerk (current) use of insulin Alanine Aminotransferase Today E11.9 - Type 2 diabetes mellitus without complications, R79.89 - Other specified abnormal findings of blood chemistry, Z79.4 - long-term (current) use of insulin Hemoglobin A1c Today E11.9 - Type 2 diabetes mellitus without complications, Z79.4 - terminal clerk (current) use of insulin Medications: New liraglutide (Victoza 2-Saud) inject 0.6mg subcutaneously once daily x 7 days; then 1.2mg daily 6 mL 0RF Discontinued semaglutide (Ozempic) for 4 weeks Discontinued Reason: Patient Completed Course 0.25 mg (0.368 mL) subcut QWEEK 3 mL 0RF Coding Level of Care Code Est Pt Level 4 (79171) Diagnoses Diabetes mellitus, type II, insulin dependent E11.9; Z79.4 CPT Codes Details - CPT: 13621 - Glucose monitoring, continuous-physician I&R ([id number])
[2024-09-24 08:59] VITALS: BP 104/72; PULSE 90; O2SAT 96; BMI 31.5
[2024-09-24 09:09] LABS: Glucose, Whole Blood 177 mg/dL (60-115)
== END 2024-09-24 09:39 | disposition home or self-care (01) ==
LOC: HO.ENCR 08:54
PROVIDERS: Visit Provider Physician Assistant Medical
DX: E11.9 Type 2 diabetes mellitus without complications (principal); Z79.4 Long term (current) use of insulin

== ENCOUNTER → 2024-09-24 08:54 | Outpatient (BNVA) | payer OTHER, SELFPAY | PROVIDERS: Visit Provider Physician Assistant Medical | DX: E11.9 Type 2 diabetes mellitus without complications (principal); Z79.4 Long term (current) use of insulin | CPT/HCPCS: 82947; 99212 ==

== ENCOUNTER 2024-10-23 16:36 | Outpatient (AMB) | payer OTHER, SELFPAY ==
--- NOTE | 2024-10-23 16:40 | A.OFFPC_ITS ---
Vital Signs 10/23/24 16:48 Height 5 ft Weight 72.121 kg BMI 31.0 BP 116/80 Respiration 16 Pulse 88 Pulse Source Pulse Oximeter Temp 97.7 F Temp Source Temporal Artery Scan Pulse Oximetry (%) 98 Oxygen Delivery Method Room Air Intake Visit Reasons: routine Register Clerk Required: No Accompanied by: Self / Same As Patient Allergies metformin Adverse Reaction (Intermediate, Verified 10/23/24 16:41) GI side effect semaglutide (From Ozempic) Adverse Reaction (Intermediate, Verified 10/23/24 16:41) headaches, dizzy, nausea tirzepatide (From Mounjaro) Adverse Reaction (Verified 10/23/24 16:41) abdominal pain and vomiting trulicity Adverse Reaction (Intermediate, Uncoded 10/23/24 16:41) Abdominal Pain Medication List - Last Reconciled 10/23/24 by ILA Casanova acetaminophen (Tylenol Extra Strength) 1,000 mg PO Q4H PRN albuterol sulfate 90 mcg/actuation (Ventolin HFA) 2 puffs PO Q6H PRN amoxicillin-pot clavulanate 875-125 mg 1 tab PO BID atorvastatin 10 mg PO BEDTIME benralizumab (Fasenra Pen) 30 mg subcut Q8W 8 weeks blood sugar diagnostic As directed blood sugar diagnostic (FreeStyle Lite Strips) CHECK 4 TIMES A DAY DIRECTED blood-glucose meter (FreeStyle Lite Meter kit) As directed checks 4 X/day blood-glucose sensor (FreeStyle Jeffrey 3 Plus Sensor device) Apply 1 new sensor every 15 days as directed to monitor blood glucose continuously. budesonide 0.5 mg (2 mL) inhalation BID 30 days codeine-guaifenesin 10-100 mg/5 mL 10 mL PO Q6H PRN 10 days cyclobenzaprine 10 mg PO DAILY PRN fluticasone propionate 50 mcg/actuation 1 spray intranasal DAILY PRN ibuprofen (Advil) 200 mg PO Q6H PRN insulin glargine U-300 conc (Toujeo Max U-300 SoloStar) 70 units subcut DAILY insulin lispro (Humalog Rusty KwikPen (U-100)) 1 sliding scale dose subcut USEASDIRECTD ipratropium-albuterol 0.5 mg-3 mg(2.5 mg base)/3 mL 3 mL inhalation QID PRN lancets As directed checks 4 X/day lancets (FreeStyle Lancets) CHECK 4 TIMES A DAY DIRECTED lidocaine 5% 1 patch topical DAILY PRN liraglutide (Victoza 2-Saud) inject 0.6mg subcutaneously once daily x 7 days; then 1.2mg daily mometasone-formoterol 200-5 mcg/actuation (Dulera) 2 puffs inhalation Q12H 30 days nebulizers As directed pen needle, diabetic (BD Kaye 2nd Gen Pen Needle) USE DIRECTED tiotropium bromide 2.5 mcg/actuation (Spiriva Respimat) 2 puffs inhalation DAILY 30 days HPI HPI Comments History of Present Illness Details 49-year-old female with history of type 2 diabetes, asthma presents to the office today to establish care and for evaluation. Asthma-following with Dr. Sexton and pulmonology. Managed with Dulera and Spiriva. Rare albuterol use. Type 2 diabetes-following with endocrinology. Last A1c 6.8%. Compliant with diet. On Toujeo as well as Humalog. Concerns: For several days, has had significant pain in the right upper neck which he feels is a lymph node. She does have some soreness with swallowing. No fevers, chills, sinus pain, ear pain, cough, shortness of breath, chest pain. Health maintenance: Last screening mammogram 01/2024 with 1 year follow-up advised. Last Pap smear 05/2021 with 5 year follow-up advised Last colonoscopy 11/2021 with 10 year follow-up advised ROS: General: No fevers, malaise, unintentional weight loss HEENT: See HPI Cardiovascular: No chest pain, palpitations, or leg edema Respiratory: No shortness of breath, wheezing, cough MSK: No myalgia, back pain Neuro: No headaches, weakness, paresthesias Skin: No rashes or lesions EXAM: Constitutional - Awake and Alert, No apparent distress Eyes - PERRL Ears-external ears normal, canals clear, tympanic membranes intact and pearly haji Mouth/throat-some erythema of the posterior oropharynx, s/p tonsillectomy. Neck- some swelling and tenderness along the L lower jaw Cardiovascular - S1S2, RRR, No edema Respiratory - Normal lung expansion, Normal respiratory effort, No respiratory distress, CTA bilaterally Extremities - no calf tenderness bilaterally, no swelling Skin - Warm/Dry Neurological - Alert & oriented x3 Psychological - Appropriate affect [facility] Medical History (Updated 10/23/24 @ 17:53 by ILA Casanova) Upper abdominal pain Diabetes mellitus, type II, insulin dependent Bronchopneumonia Chronic allergic rhinitis Asthma Lichen sclerosus of female genitalia Diabetes mellitus Surgical History History of nasal surgery (~1995) History of tubal ligation (~2013) Family History Maternal Grandmother Colon cancer Social History Household Members: Family Housing: House Do you presently have visiting nurse or other home services: No Alcohol intake: current Alcohol intake frequency: holidays/special occasions only Patient Tobacco Use Status: Never used Tobacco e-Cigarette/Vaping Use: Never Used Advance Directives Date on File: 10/25/21 service: No Current occupational status: employed 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 1. Little interest or pleasure in doing things: several days 2. Feeling down, depressed, or hopeless: several days 3. Trouble falling or staying asleep, or sleeping too much: not at all 4. Feeling tired or having little energy: several days 5. Poor appetite or overeating: several days 6. Feeling bad about yourself - or that you are a failure or have let yourself or your family down: not at all 7. Trouble concentrating on things, such as reading the newspaper or watching television: several days 8. Moving or speaking so slowly that other people could have noticed. Or the opposite - being so fidgety or restless that you have been moving around a lot more than usual: not at all 9. Thoughts that you would be better off or of hurting yourself in some way: not at all Total score: 5 Source: Developed by Drs. Sincere Nicole, Ibis Mckeon, Hussein Choi and colleagues, with an educational dmitry from [employer]. Thrive Questionnaire Date Thrive assessed: 10/23/24 I am a: Patient What is your living situation today?: I have a steady place to live Within the past 12 months, did the food you bought not last and you didn't have the money to get more?: Never true Within the past 12 months, did you worry whether your food would run out before you got money to buy more?: Never true Do you have trouble paying for medicines?: No Do you have trouble getting transportation to medical appointments?: No Do you have trouble paying your heating and electricity bill?: No Do you have trouble taking care of your child, family member or friend?: No Do you have trouble with day-to-day activities such as bathing, preparing meals, shopping, managing finances, etc.?: No Are you currently unemployed and looking for a job?: No Are you interested in more education?: No Please select the resources that you would like help with: None THRIVE Score: 0 ANGELICA-7 AMB Questionnaire ANGELICA-7 Date ANGELICA - 7 assessed: 10/23/24 Feeling nervous, anxious, or on edge: 1 = Several days Not being able to stop or control worryin = Several days Worrying too much about different things: 1 = Several days Trouble relaxin = Several days Being so restless that it is hard to sit still: 1 = Several days Becoming easily annoyed or irritable: 1 = Several days Feeling afraid as if something awful might happen: 0 = Not at all Total ANGELICA-7 score (0-4 normal; 5-9 mild; 10-14 moderate; 15-21 severe): 6 Source: Developed by Drs. Sincere Nicole, Ibis Mckeon, Hussein Choi and colleagues, with an educational dmitry from [employer]. Physical exam (Primary Care) Vital Signs: Last Vital Signs Temp 97.7 F 10/23/24 16:48 Pulse 88 10/23/24 16:48 Resp 16 10/23/24 16:48 BP 116/80 10/23/24 16:48 Pulse Ox 98 10/23/24 16:48 Oxygen Delivery Method Room Air 10/23/24 16:48 BMI result Body Mass Index 31.0 Tobacco/Smoking Status: Tobacco use Status Patient Tobacco Use Status Never used Tobacco 10/23/24 16:42 e-Cigarette/Vaping Use Never Used 10/23/24 16:42 PHQ-9: PHQ-9 Score PHQ-9: Total score 5 10/23/24 16:52 Thrive Assessment: Date of Thrive Assessment Date Thrive assessed 10/23/24 10/23/24 16:52 Coding Level of Care Code New Pt Level 4 (14962) Diagnoses Parotitis K11.20 Diabetes mellitus E11.9 Severe persistent asthma without complication J45.50 Asthma severity: severe Asthma persistence: persistent Asthma complication type: uncomplicated Assessment & Plan Assessment & Plan (1) Parotitis: Code(s): K11.20 - Sialoadenitis, unspecified Category: Medical Plan: Advised to use prednisone 40 mg daily x3 days. Also prescribed Augmentin 875 mg twice daily x7 days. Recommend sour candies to induce salivation (2) Diabetes mellitus: Code(s): E11.9 - Type 2 diabetes mellitus without complications Category: Medical Plan: Controlled. Continue following with endocrinology and continue current therapies. Diabetic diet (3) Asthma: Code(s): J45.909 - Unspecified asthma, uncomplicated Category: Medical Qualifiers: Asthma severity: severe Asthma persistence: persistent Asthma complication type: uncomplicated Qualified Code(s): J45.50 - Severe persistent asthma, uncomplicated Plan: Controlled. Continue following with pulmonology and continue current therapies Plan Follow-up as scheduled. Labs to be completed several days prior to visit Orders: Orders Basic Metabolic Panel Today E11.9 - Type 2 diabetes mellitus without complications Medications: New amoxicillin-pot clavulanate 875-125 mg Take with food 1 tab PO BID 14 tabs 0RF
[2024-10-23 16:48] VITALS: BP 116/80; PULSE 88; RESP 16; TEMP 36.5; O2SAT 98; BMI 31.0
== END 2024-10-23 17:26 | disposition home or self-care (01) ==
LOC: HO.HMCHD 16:36
PROVIDERS: Visit Provider Physician Assistant
DX: K11.20 Sialoadenitis, unspecified (principal); E11.9 Type 2 diabetes mellitus without complications; J45.50 Severe persistent asthma, uncomplicated

== ENCOUNTER → 2024-10-23 16:36 | Outpatient (BNVA) | payer OTHER, SELFPAY | PROVIDERS: Visit Provider Physician Assistant | DX: Z76.89 Persons encountering health services in other specified circumstances (principal); K11.20 Sialoadenitis, unspecified; E11.9 Type 2 diabetes mellitus without complications; J45.50 Severe persistent asthma, uncomplicated; Z13.31 Encounter for screening for depression; Z13.39 Encounter for screening examination for other mental health and behavioral disorders | CPT/HCPCS: 99202 ==

== ENCOUNTER 2024-11-22 09:49 | Outpatient (AMB) | payer OTHER, SELFPAY ==
--- NOTE | 2024-11-22 09:54 | A.OFFVIS_ITS ---
Vital Signs 11/22/24 09:58 Height 5 ft Weight 162 lb 11.218 oz BMI 31.8 BP 104/64 Blood Pressure Location Rt radial Position Sitting Pulse 89 Pulse Source Pulse Oximeter Pulse Oximetry (%) 96 Oxygen Delivery Method Room Air Intake Visit Reasons: T2DM Intake Note: Patient present today to follow up on Type 2 Diabetes Mellitus. 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 Random Glucose: 245 mg/dl HgA1C: 8.3% 11/22/2024 Kai [place] Required: No Accompanied by: Self / Same As Patient Allergies metformin Adverse Reaction (Intermediate, Verified 11/22/24 09:59) GI side effect semaglutide (From Ozempic) Adverse Reaction (Intermediate, Verified 11/22/24 09:59) headaches, dizzy, nausea tirzepatide (From Mounjaro) Adverse Reaction (Verified 11/22/24 09:59) abdominal pain and vomiting trulicity Adverse Reaction (Intermediate, Uncoded 11/22/24 09:59) Abdominal Pain Medication List - Last Reconciled 11/22/24 by ILA Peña acetaminophen (Tylenol Extra Strength) 1,000 mg PO Q4H PRN albuterol sulfate 90 mcg/actuation (Ventolin HFA) 2 puffs PO Q6H PRN atorvastatin 10 mg PO BEDTIME benralizumab (Fasenra Pen) 30 mg subcut Q8W 8 weeks blood sugar diagnostic As directed blood sugar diagnostic (FreeStyle Lite Strips) CHECK 4 TIMES A DAY DIRECTED blood-glucose meter (FreeStyle Lite Meter kit) As directed checks 4 X/day blood-glucose sensor (FreeStyle Jeffrey 3 Plus Sensor device) Apply 1 new sensor every 15 days as directed to monitor blood glucose continuously. budesonide 0.5 mg (2 mL) inhalation BID 30 days codeine-guaifenesin 10-100 mg/5 mL 10 mL PO Q6H PRN 10 days cyclobenzaprine 10 mg PO DAILY PRN fluticasone propionate 50 mcg/actuation 1 spray intranasal DAILY PRN ibuprofen (Advil) 200 mg PO Q6H PRN insulin glargine U-300 conc (Toujeo Max U-300 SoloStar) 70 units subcut DAILY insulin lispro (Humalog Rusty KwikPen (U-100)) 1 sliding scale dose subcut USEASDIRECTD ipratropium-albuterol 0.5 mg-3 mg(2.5 mg base)/3 mL 3 mL inhalation QID PRN lancets As directed checks 4 X/day lancets (FreeStyle Lancets) CHECK 4 TIMES A DAY DIRECTED lidocaine 5% 1 patch topical DAILY PRN liraglutide 1.8 mg (0.3 mL) subcut Q24H mometasone-formoterol 200-5 mcg/actuation (Dulera) 2 puffs inhalation Q12H 30 days nebulizers As directed pen needle, diabetic (BD Kaye 2nd Gen Pen Needle) USE DIRECTED tiotropium bromide 2.5 mcg/actuation (Spiriva Respimat) 2 puffs inhalation DAILY 30 days HPI Comments Details: This is a 49-year-old female with a past medical history of asthma, seasonal allergies and type 2 diabetes presenting for diabetic management. She has a family history of type 2 diabetes on her paternal side. No known complications. Hemoglobin A1c was 6.8% 07/19/2024. Hemoglobin A1c is 8.3% today 11/22/2024. Reviewed CGM data the past 2 weeks. 47% very high 33% high 20% target range 0% hypoglycemia GMI 9.1% She has a hyperglycemia throught 24 hours. She went on a cruise and was drinking more alcohol and eating more food. She is also was on antibiotics and prednisone recently for an infection. Current medications: Victoza 1.2 mg daily and Toujeo 70 units and lispro sliding scale. Sliding scale: <150 0 units 151-200 4 units 201-250 6 units 251-300 8 units 301-350 10 units >350 12 units Scale if average glucose is 160 or more 120-200 6 units 201-250 8 units 251-300 10 units over 300 12 units Past medications: Mounjaro and Ozempic discontinued due to GI side effects. Ozempic also caused headaches and dizziness. Denies side effects thus far on Victoza. Jardiance caused UTI, Trulicity caused abdominal pain, metformin caused GI side effects No hypertension. Atorvastatin 10 mg taken for hyperlipidemia. ROS: Constitutional: No fevers or chills or unexplained weight loss. Respiratory: No shortness of breath, cough, wheezing or sputum production. No hemoptysis. Cardiovascular: No chest pain, palpitations or lower extremity edema. Gastrointestinal: No abdominal pain, diarrhea, blood in stools, anorexia or vomiting. +nausea with Ozempic. Neurologic: No headache, dizziness, syncope Endocrine: No cold or heat intolerance. No polyuria or polydipsia. Physical exam: Constitutional: Alert, in no distress. Head: Normocephalic. Neck: Supple, Full range of motion. No lymphadenopathy. Respiratory: Clear to auscultation. Cardiovascular: S1 S2 regular. No murmurs. Extremities: Warm and well perfused, no edema [facility] Medical History (Updated 10/23/24 @ 17:53 by ILA Casanova) Upper abdominal pain Diabetes mellitus, type II, insulin dependent Bronchopneumonia Chronic allergic rhinitis Asthma Lichen sclerosus of female genitalia Diabetes mellitus Surgical History History of nasal surgery (~1995) History of tubal ligation (~2013) Family History Maternal Grandmother Colon cancer Social History Household Members: Family Housing: House Do you presently have visiting nurse or other home services: No Alcohol intake: current Alcohol intake frequency: holidays/special occasions only Patient Tobacco Use Status: Never used Tobacco e-Cigarette/Vaping Use: Never Used Advance Directives Date on File: 10/25/21 service: No Current occupational status: employed 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 Sexual orientation: Straight/Heterosexual Female Reproductive History Menstrual Age of Menarche: 13 Physical Exam Vital Signs: Last Vital Signs Pulse 89 11/22/24 09:58 BP 104/64 11/22/24 09:58 Pulse Ox 96 11/22/24 09:58 Oxygen Delivery Method Room Air 11/22/24 09:58 BMI result Body Mass Index 31.8 Office Procedures Glucose Monitoring Details Details: see [facility] 00782 - Glucose monitoring, continuous-physician I&R Procedure code (CPT) selection complete Results AMB Hemoglobin A1c AMB Hemoglobin A1c 8.3 % Last Edit by EARNESTINE Clark on 11/22/24 10:15 Results Reviewed Results Reviewed: Laboratory Last Values Glucose (Clinic) 245 mg/dL (60-115) H 11/22/24 10:06 Hgb A1c (Clinic) 8.3 % (4.0-6.0) H 11/22/24 10:09 Laboratory Tests 01/26/24 01/26/24 06/30/24 10:10 10:16 09:14 Creatinine 0.65 Estimated GFR > 60 AST 20 ALT 31 Triglycerides 148 Cholesterol 192 LDL Cholesterol, Calc 112 H HDL Cholesterol 51 Urine Creatinine 113.08 Urine Microalbumin 6.0 Microalb/Creat Ratio 5.3 Assessment & Plan Assessment & Plan (1) Diabetes mellitus, type II, insulin dependent: Code(s): E11.9 - Type 2 diabetes mellitus without complications; Z79.4 - nursing home (current) use of insulin Category: Medical Plan In summary this is a 49-year-old female with uncontrolled type 2 diabetes. Diabetes was previously controlled with Mounjaro, but her insurance stopped covering it. Her previous GI symptoms resolved after she stopped the medication so I do not recommend restarting it. She did not tolerate Ozempic. Increase Victoza to 1.8 mg daily. Monitor closely for GI side effects. Contact the office if you have any difficulty with it. Increase Toujeo to 76 units every evening. Continue lispro sliding scale. She will follow up in 6 weeks for Type II diabetes. Orders: Orders AMB Hemoglobin A1c Today E11.9 - Type 2 diabetes mellitus without complications AMB Glucose Monitoring Today E11.9 - Type 2 diabetes mellitus without complications Medications: New liraglutide 1.8 mg (0.3 mL) subcut Q24H 9 mL 5RF Discontinued liraglutide (Victoza 2-Saud) Discontinued Reason: Doctor's Order inject 0.6mg subcutaneously once daily x 7 days; then 1.2mg daily 6 mL 0RF Patient Instructions: Increase Victoza to 1.8 mg daily. Increase Toujeo to 76 units every evening. Continue lispro sliding scale. Coding Level of Care Code Est Pt Level 4 (79199) Diagnoses Diabetes mellitus, type II, insulin dependent E11.9; Z79.4 CPT Codes Details - CPT: 33554 - Glucose monitoring, continuous-physician I&R ([id number])
[2024-11-22 09:58] VITALS: BP 104/64; PULSE 89; O2SAT 96; BMI 31.8
[2024-11-22 10:11] LABS: Glucose, Whole Blood 245 mg/dL (60-115)
== END 2024-11-22 10:46 | disposition home or self-care (01) ==
LOC: HO.ENCR 09:50
PROVIDERS: Visit Provider Physician Assistant Medical
DX: E11.9 Type 2 diabetes mellitus without complications (principal); Z79.4 Long term (current) use of insulin

== ENCOUNTER → 2024-11-22 09:49 | Outpatient (BNVA) | payer OTHER, SELFPAY | PROVIDERS: Visit Provider Physician Assistant Medical | DX: E11.9 Type 2 diabetes mellitus without complications (principal); Z79.4 Long term (current) use of insulin | CPT/HCPCS: 82947; 83036; 99212 ==

== ENCOUNTER 2024-12-04 13:59 | Outpatient (AMB) | payer OTHER, SELFPAY ==
--- NOTE | 2024-12-04 14:12 | A.OFFVIS_ITS ---
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 Exhibit Electrician: Exhibit Electrician Present (catrachito) Allergies metformin Adverse Reaction (Intermediate, Verified 12/04/24 14:16) GI side effect semaglutide (From Ozempic) Adverse Reaction (Intermediate, Verified 12/04/24 14:16) headaches, dizzy, nausea tirzepatide (From Mounjaro) Adverse Reaction (Verified 12/04/24 14:16) abdominal pain and vomiting trulicity Adverse Reaction (Intermediate, Uncoded 11/22/24 09:59) Abdominal Pain Is last menstrual period known: Yes Last menstrual period: 11/15/24 HPI Comments Details: Patient is a premenopausal woman presenting for new patient annual examination. 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 Regular monthly menses x3-5d. Menarche age 13yrs. Currently is sexually active. She denies vaginal itching or irritation. STI screening offered; she declined. Admits to external dryness. She tries to eat healthy and stays active with some exercise. FH colon cancer. Last pap smear 2021, negative. Mammogram: 2023. [facility] Medical History Upper abdominal pain Diabetes mellitus, type II, insulin dependent Bronchopneumonia Chronic allergic rhinitis Asthma Lichen sclerosus of female genitalia Diabetes mellitus Surgical History History of nasal surgery (~1995) History of tubal ligation (~2013) Family History Maternal Grandmother Colon cancer Social History Household Members: Family Housing: House Do you presently have visiting nurse or other home services: No Alcohol intake: current Alcohol intake frequency: holidays/special occasions only Patient Tobacco Use Status: Never used Tobacco e-Cigarette/Vaping Use: Never Used Advance Directives Date on File: 10/25/21 service: No Current occupational status: employed 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 Sexual orientation: Straight/Heterosexual Female Reproductive History Menstrual Age of Menarche: 13 Duration of menses: 3-5 days Date of last menstrual period: 11/15/24 control method: permanent sterilization Permanent Sterilization: BTL Total pregnancies: 5 Full term: 4 Number of Living Children: 4 Date of last pap smear: 05/24/21 (neg pap and hpv) Date of Mammogram: 02/05/24 (Birad 1) Review of Systems Const All systems reviewed & are unremarkable except as noted in HPI and below Reports as per HPI Eyes Reports no additional complaints ENT Reports no additional complaints Card Reports no additional complaints Resp Reports no additional complaints GI Reports as per HPI and Reports no additional complaints Reports as per HPI Musc Reports no additional complaints Skin/Breast Reports as per HPI Neuro Reports no additional complaints Psych Reports no additional complaints Endo Reports no additional complaints Zain/Lymph Reports no additional complaints Aller/Immun Reports no additional complaints Physical Exam Vital Signs: Last Vital Signs BP 122/78 12/04/24 14:19 BMI result Body Mass Index 32.8 Const General: cooperative, healthy appearing, no acute distress, well developed and alert Orientation/consciousness: patient oriented x3 HEENT Head: Yes normal to inspection Eyes General: appearance normal, both eyes and all related structures Neck Neck: Yes normal visual inspection Thyroid: Thyroid normal Chest Chest palpation & inspection: normal inspection of the chest and other (no puckering, dimpling, peau de orange, retraction, discharge, masses) Breast/axilla inspection: normal inspection of the breasts Breast/axilla palpation: normal palpation of the breasts Resp Effort & Inspection: normal respiratory effort GI Inspection: Yes normal to inspection Palpation (GI): Soft to palpation Rectal Exam - Female: deferred General: Yes bladder normal to palpation External Female Exam: normal external appearance and normal appearance of the urethra Speculum Exam - Vagina: normal appearance of the vagina, normal palpation and normal vaginal discharge Speculum Exam - Cervix: normal appearance of the cervix and normal palpation Bimanual exam- vagina & uterus: normal bimanual exam, normal palpation, uterine size normal, bladder normal to palpation, normal palpation and non-tender Bimanual Exam- Adnexa, other: no masses Skin General skin exam: no rashes or lesions noted Rashes: no rashes Neuro General: patient oriented x3 Cognition (Neuro): normal cognition Extrem General: Yes normal to inspection Psych Attitude: cooperative Thought process: Normal thought process present Assessment & Plan Assessment & Plan (1) Encounter for well woman exam with routine gynecological exam: Code(s): Z01.419 - Encounter for gynecological examination (general) (routine) without abnormal findings Category: Medical Plan Discussed: Current recommendations for pap smears per ASCCP guidelines. Breast awareness and periodic breast exams. Mammogram yearly. Maintain a healthy lifestyle including a well balanced diet and routine exercise. Monitor menstrual cycles, report any unscheduled bleeding, bleeding episodes <24 days apart or heavy/prolonged menstrual bleeding. Call the office for a follow up for any concerns. Vaginal moisturizers, external balms, and hormone replacement therapy. Perimenopausal changes and menopausal onset. Colonoscopy >45, or at risk sooner. Patient verbalizes understanding and agrees to the plan of care. She was given opportunity to ask questions and all questions were answered to the best of my ability. RTO in one year for annual entry level business analyst examination. This note is constructed using voice recognition software. While every effort has been made to ensure accuracy, plastic worker errors may have been included. Coding Level of Care Code New Pt Prev Care 40-64y(24344) Diagnoses Encounter for well woman exam with routine gynecological exam Z01.419
[2024-12-04 14:19] VITALS: BP 122/78; BMI 32.8
== END 2024-12-04 15:04 | disposition home or self-care (01) ==
LOC: HO.HWS 14:00
PROVIDERS: Visit Provider Advanced Practice Midwife
DX: Z01.419 Encounter for gynecological examination (general) (routine) without abnormal findings (principal)
CPT/HCPCS: 99386; 99459

== ENCOUNTER → 2024-12-04 13:59 | Outpatient (BNVA) | payer OTHER, SELFPAY | PROVIDERS: Visit Provider Advanced Practice Midwife | DX: Z01.419 Encounter for gynecological examination (general) (routine) without abnormal findings (principal) | CPT/HCPCS: 99386 ==

== ENCOUNTER 2025-01-29 12:02 | Outpatient (AMB) | payer OTHER, SELFPAY ==
--- NOTE | 2025-01-29 12:12 | MHC.OFFWIV ---
Intake Vital Signs 01/29/25 12:23 Height 5 ft Weight 168 lb BMI 32.8 BP 104/70 Blood Pressure Location Lt brachial Position Sitting Pulse 99 Pulse Source Pulse Oximeter Temp 98.1 F Temp Source Oral Pulse Oximetry (%) 98 Oxygen Delivery Method Room Air Intake Visit Reasons: EP Right arm pain [phone] Intake Note: pt presents with right forearm pain into elbow with pulling feeling on shoulder and numbness to 5th finger for about a week Patient Tobacco Use Status: Never used Tobacco Allergies metformin Adverse Reaction (Intermediate, Verified 01/29/25 12:12) GI side effect semaglutide (From Ozempic) Adverse Reaction (Intermediate, Verified 01/29/25 12:12) headaches, dizzy, nausea tirzepatide (From Mounjaro) Adverse Reaction (Verified 01/29/25 12:12) abdominal pain and vomiting trulicity Adverse Reaction (Intermediate, Uncoded 11/22/24 09:59) Abdominal Pain Do you need a note to return to daycare/school/sports/work: No HPI HPI Comments History of Present Illness Details Patient was informed and verbally consented to the use of an ambient scribe for clinic note documentation during the visit. History of Present Illness The patient is a 49-year-old female presenting with complaints of right arm pain accompanied by tingling and burning sensations. Right forearm pain: - The patient reports experiencing pain in the right forearm for about one week. - The patient describes the pain as burning and notes it becomes more intense and accompanied by tingling when the arm is straightened. - Symptoms are more comfortable when the arm is kept bent. - Pain noted along the right elbow and proximal forearm - Tingling does not typically radiate down the fingers except for the pinky, which feels different. - The onset of symptoms was possibly linked to the movement of a laundry basket, which may have contributed to a sudden discomfort in the arm. - The patient notes a new onset of shoulder and discomfort pain, specifically on the right side. Review of Systems - Musculoskeletal: Reports right forearmarm pain, tingling, burning sensation - Neurological: Reports tingling particularly along right 5th digit and partially the right 4th digit Physical Exam General Appearance: Normal appearance, well developed. No acute distress Head: Normocephalic, atraumatic Pulmonary: No respiratory distress. Speaking in full sentences Musculoskeletal: Moving all extremities spontaneously and against gravity. TTP overlying the medial epicondyle of the right elbow. Tinel sign at cubital tunnel negative. Decreased hand agricultural scientist strength of the right hand compared to the left hand. Sensation intact distally. Cap refill < 2 seconds. Mental Status: Alert and Oriented x 3 Psychiatric: Normal mood. Normal affect. [facility] Medical History Upper abdominal pain Diabetes mellitus, type II, insulin dependent Bronchopneumonia Chronic allergic rhinitis Asthma Lichen sclerosus of female genitalia Diabetes mellitus Surgical History History of nasal surgery (~1995) History of tubal ligation (~2013) Family History Maternal Grandmother Colon cancer Social History Household Members: Family Housing: House Do you presently have visiting nurse or other home services: No Alcohol intake: current Alcohol intake frequency: holidays/special occasions only Patient Tobacco Use Status: Never used Tobacco e-Cigarette/Vaping Use: Never Used Advance Directives Date on File: 10/25/21 service: No Current occupational status: employed 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 Sexual orientation: Straight/Heterosexual Female Reproductive History Menstrual Age of Menarche: 13 Physical Exam Vital Signs: Last Vital Signs Temp 98.1 F 01/29/25 12:23 Pulse 99 01/29/25 12:23 BP 104/70 01/29/25 12:23 Pulse Ox 98 01/29/25 12:23 Oxygen Delivery Method Room Air 01/29/25 12:23 BMI result Body Mass Index 32.8 Assessment & Plan Assessment & Plan (1) Right forearm pain: Code(s): M79.631 - Pain in right forearm (2) Medial epicondylitis of right elbow: Code(s): M77.01 - Medial epicondylitis, right elbow Plan - Based on the patient?s reported symptoms and physical findings, suspect medial epicondylitis with a componenent of radiculopathy - We discussed potential interventions, specifically starting with a prescription for Naproxen 500 mg to be taken twice daily with food for anti-inflammatory effects. - Will avoid steroids at this time given her diabetes due to potential blood sugar fluctuation - I recommended to try using an elbow brace to limit movement and further stress on the elbow. - Discussed follow up if no improvement in symptoms over the next week Medications: New naproxen 500 mg PO Q12H PRN 20 tabs 0RF pain Coding Level of Care Code Est Pt Level 3 (30342) Diagnoses Right forearm pain M79.631 Medial epicondylitis of right elbow M77.01
[2025-01-29 12:23] VITALS: BP 104/70; PULSE 99; TEMP 36.7; O2SAT 98; BMI 32.8
--- OUTSIDE RECORDS SUMMARY | 2025-01-29 16:58 | XMS_ITS | Clinical Summary ---
Author Organization 175 [facility] Address 175 [place] [address] Phone Care Team Providers Care Clerical Supervisor Name Role Phone Chuck Cohen MD Primary Care Provider Social History Tobacco Use Types Packs/Day Years Used Date Smoking Tobacco: Never Assessed Comments Unknown Sex and Gender Information Value Date Recorded Sex Assigned at Not on file Legal Sex Female 8:26 AM EDT Gender Identity Not on file Sexual Orientation Not on file Plan of Treatment Upcoming Encounters Date Type Department Care Team ([facility] Contact Info) Description 03/24/2025 2:15 PM EST Office Visit Orthopedic Surgery - [place] [id number] [phone] Linus Delong DPM [address] [address] Health Maintenance Due Date Last Done Comments Breast Cancer Screening 1975 Colorectal Cancer Screening: Colonoscopy 1975 Diabetes: Annual GFR (Glomer ular Filtration Rate) 1975 Diabetes: Annual Foot Exam 1985 Diabetes: Annual Retina Eye Exam 1985 DTaP,Tdap,and Td Vaccines (1 - Tdap) 1994 Hepatitis B Vaccines (1 of 3 - 19+ 3-dose series) 1994 Pneumococcal Vaccine: Pediat rics (0 to 5 Years) and At-Risk Patients (6 to 49 Years) (1 of 2 - PCV) 1994 Cervical Cancer Screening: P ap Smear 02/14/1996 Depression Screening 04/10/2024 Cholesterol Screening (Lipid Panel) 11/26/2024 Diabetes: Annual Urine Albumin-Creatinine Ratio (uACR) 11/26/2024 Diabetes: Blood Sugar Contro l Test (HGBA1C) 11/26/2024 HIV Screening 11/26/2024 Hepatitis C Screening 11/26/2024 Social Influencers of Health Screening 11/26/2024 COVID-19 Vaccine (1 - 2023-2 5 season) 2024 Influenza Vaccine (#1) 2024 RSV Immunization Adult Patie nts (1 - 1-dose 75+ series) 2050 HIB Vaccines Aged Out No longer eligi ble based on patient's age to complete this topic HPV Vaccines Aged Out No longer eligi ble based on patient's age to complete this topic Hepatitis A Vaccines Aged Out No long er eligible based on patient's age to complete this topic IPV Vaccines Aged Out No longer eligi ble based on patient's age to complete this topic MMR Vaccines Aged Out No longer eligi ble based on patient's age to complete this topic Meningococcal ACWY Vaccine Aged Out N o longer eligible based on patient's age to complete this topic Meningococcal B Vaccine Aged Out No l onger eligible based on patient's age to complete this topic RSV Immunization Patients Un ricky 20 months Aged Out No longer eligible b ased on patient's age to complete this topic Varicella Vaccines Aged Out No longer eligible based on patient's age to complete this topic Insurance [facility] Care Teams Clerical Supervisor Relationship Specialty Start Date End Date Chuck Cohen MD [address] [place] [address] [address] [place], [place] PCP - General Internal Medicine 8/19/25
== END 2025-01-29 12:55 | disposition home or self-care (01) ==
PROVIDERS: Visit Provider Family Medicine
DX: M79.631 Pain in right forearm (principal); M77.01 Medial epicondylitis, right elbow

== ENCOUNTER → 2025-01-29 12:02 | Outpatient (BNVA) | payer OTHER, SELFPAY | PROVIDERS: Visit Provider Family Medicine | DX: M79.631 Pain in right forearm (principal); M77.01 Medial epicondylitis, right elbow; E11.9 Type 2 diabetes mellitus without complications | CPT/HCPCS: 99212 ==

== ENCOUNTER 2025-02-05 07:58 | Outpatient (AMB) | payer OTHER, SELFPAY ==
--- OUTSIDE RECORDS SUMMARY | 2025-02-05 08:00 | XMS_ITS | Clinical Summary ---
Author Organization 175 [facility] Address 175 [place] [address] Phone Care Team Providers Care Ring Facer Name Role Phone Chuck Cohen MD Primary Care Provider Social History Tobacco Use Types Packs/Day Years Used Date Smoking Tobacco: Never Assessed Comments Unknown Sex and Gender Information Value Date Recorded Sex Assigned at Not on file Legal Sex Female 8:26 AM EDT Gender Identity Not on file Sexual Orientation Not on file Plan of Treatment Upcoming Encounters Date Type Department Care Team ([facility] Contact Info) Description 03/24/2025 2:15 PM EST Office Visit Orthopedic Surgery - [place] [address] [facility] [address] [place] [phone] Linus Delong, YVONNE [address] [place] [phone] Health Maintenance Due Date Last Done Comments [...] patient's age to complete this topic Insurance [facility] Care Teams Ring Facer Relationship Specialty Start Date End Date Chuck Cohen MD [address] [place] [address] [address] [place], [place] PCP - General Internal Medicine 8/19/25
--- NOTE | 2025-02-05 08:01 | A.OFFPC_ITS ---
Vital Signs 02/05/25 08:07 Height 5 ft 0.91 in Weight 76.204 kg BMI 31.8 BP 110/60 Blood Pressure Location Rt brachial Position Sitting Respiration 18 Pulse 92 Pulse Source Pulse Oximeter Temp 98 F Temp Source Temporal Artery Scan Pulse Oximetry (%) 97 Oxygen Delivery Method Room Air Intake Visit Reasons: right arm pain, numbness on pinky, (see comments) Case Preparer And Liner Required: No Accompanied by: Self / Same As Patient Allergies metformin Adverse Reaction (Intermediate, Verified 02/05/25 08:01) GI side effect semaglutide (From Ozempic) Adverse Reaction (Intermediate, Verified 02/05/25 08:01) headaches, dizzy, nausea tirzepatide (From Mounjaro) Adverse Reaction (Verified 02/05/25 08:01) abdominal pain and vomiting trulicity Adverse Reaction (Intermediate, Uncoded 11/22/24 09:59) Abdominal Pain Medication List - Last Reconciled 02/05/25 by ILA Casanova acetaminophen (Tylenol Extra Strength) 1,000 mg PO Q4H PRN albuterol sulfate 90 mcg/actuation (Ventolin HFA) 2 puffs PO Q6H PRN alcohol swabs (Alcohol Prep Pads) pad topical atorvastatin 10 mg PO BEDTIME benralizumab (Fasenra Pen) 30 mg subcut Q8W 8 weeks blood sugar diagnostic As directed blood sugar diagnostic (FreeStyle Lite Strips) CHECK 4 TIMES A DAY DIRECTED blood-glucose meter (FreeStyle Lite Meter kit) As directed checks 4 X/day blood-glucose sensor (FreeStyle Jeffrey 3 Plus Sensor device) Apply 1 new sensor every 15 days as directed to monitor blood glucose continuously. budesonide 0.5 mg (2 mL) inhalation BID 30 days cyclobenzaprine 10 mg PO DAILY PRN insulin glargine U-300 conc (Toujeo Max U-300 SoloStar) 60 units subcut DAILY insulin lispro (Humalog Rusty KwikPen (U-100)) 1 sliding scale dose subcut USEASDIRECTD ipratropium-albuterol 0.5 mg-3 mg(2.5 mg base)/3 mL 3 mL inhalation QID PRN lancets As directed checks 4 X/day lancets (FreeStyle Lancets) CHECK 4 TIMES A DAY DIRECTED liraglutide (Victoza 3-Saud) 1.8 mg (0.3 mL) subcut Q24H mometasone-formoterol 200-5 mcg/actuation (Dulera) 2 puffs inhalation Q12H 30 days naproxen 500 mg PO Q12H PRN nebulizers As directed pen needle, diabetic (BD Kaye 2nd Gen Pen Needle) USE DIRECTED tiotropium bromide 2.5 mcg/actuation (Spiriva Respimat) 2 puffs inhalation DAILY 30 days HPI HPI Comments History of Present Illness Details 49-year-old female with history of type 2 diabetes, asthma presents to the office today to establish care and for evaluation. Asthma-following with Dr. Sexton and pulmonology. Managed with Dulera and Spiriva. Rare albuterol use. Type 2 diabetes-following with endocrinology. Last A1c 6.8%. Compliant with diet. On Toujeo as well as Humalog. Wears freestyle Jeffrey, average glucose 148 Hyperlipidemia-due for lipid panel. On atorvastatin Concerns: R arm pain- x2.5w. ?carrying/twisting to pickle sorter laundry basket. Arm felt different that day. Increasingly worse with activity. Only painful with activity. Went to walk in. occ numbness in pinky. Cant open doors or grab things without pain.<ainly in elbow and forearm and occ radiates to shoulder. R hand dominant. Cannot leave extended for too long. Recommended heating pad and naprox en. Does help. Swelling has gone down on forearm. Hesitant about steroids Health maintenance: Last screening mammogram 01/2024 with 1 year follow-up advised. Last Pap smear 05/2021 with 5 year follow-up advised, luis 02/10 Last colonoscopy 11/2021 with 10 year follow-up advised ROS: See HPI EXAM: Constitutional - Awake and Alert, No apparent distress Eyes - PERRL Ears-external ears normal, canals clear, tympanic membranes intact and pearly haji Mouth/throat-some erythema of the posterior oropharynx, s/p tonsillectomy. Neck- some swelling and tenderness along the L lower jaw Cardiovascular - S1S2, RRR, No edema Respiratory - Normal lung expansion, Normal respiratory effort, No respiratory distress, CTA bilaterally MSK- ttp over lateral epicondyle, pain wtih supination Extremities - no calf tenderness bilaterally, no swelling Skin - Warm/Dry Neurological - Alert & oriented x3 Psychological - Appropriate affect PFSH Medical History (Updated 02/05/25 @ 08:24 by ILA Casanova) HLD (hyperlipidemia) Upper abdominal pain Diabetes mellitus, type II, insulin dependent Bronchopneumonia Chronic allergic rhinitis Asthma Lichen sclerosus of female genitalia Diabetes mellitus Surgical History History of nasal surgery (~1995) History of tubal ligation (~2013) Family History Maternal Grandmother Colon cancer Social History Household Members: Family Housing: House Do you presently have visiting nurse or other home services: No Alcohol intake: current Alcohol intake frequency: holidays/special occasions only Patient Tobacco Use Status: Never used Tobacco e-Cigarette/Vaping Use: Never Used Advance Directives Date on File: 10/25/21 service: No Current occupational status: employed 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 Sincere Nicole, Ibis Mckeon, Hussein Choi and colleagues, with an educational dmitry from [employer]. Physical exam (Primary Care) Vital Signs: Last Vital Signs Temp 98 F 02/05/25 08:07 Pulse 92 02/05/25 08:07 Resp 18 02/05/25 08:07 BP 110/60 02/05/25 08:07 Pulse Ox 97 02/05/25 08:07 Oxygen Delivery Method Room Air 02/05/25 08:07 BMI result Body Mass Index 31.8 Tobacco/Smoking Status: Tobacco use Status Patient Tobacco Use Status Never used Tobacco 02/05/25 08:03 e-Cigarette/Vaping Use Never Used 02/05/25 08:03 Thrive Assessment: Date of Thrive Assessment Date Thrive assessed 10/23/24 02/05/25 08:03 Coding Level of Care Code Est Pt Level 4 (07761) Complex EM visit Add On G2211 Diagnoses Right lateral epicondylitis M77.11 Diabetes mellitus E11.9 Severe persistent asthma without complication J45.50 Asthma severity: severe Asthma persistence: persistent Asthma complication type: uncomplicated HLD (hyperlipidemia) E78.5 Assessment & Plan Assessment & Plan (1) Right lateral epicondylitis: Code(s): M77.11 - Lateral epicondylitis, right elbow Category: Medical Plan: Continue with naproxen and can also use Tylenol as needed. Given exercises to perform at home. Advised to rest the arm as much as possible and use ice. Referred for occupational therapy (2) Diabetes mellitus: Code(s): E11.9 - Type 2 diabetes mellitus without complications Category: Medical Plan: Controlled. Continue following with endocrinology and continue current therapies. Diabetic diet (3) Asthma: Code(s): J45.909 - Unspecified asthma, uncomplicated Category: Medical Qualifiers: Asthma severity: severe Asthma persistence: persistent Asthma complication type: uncomplicated Qualified Code(s): J45.50 - Severe persistent asthma, uncomplicated Plan: Controlled. Continue following with pulmonology and continue current therapies (4) HLD (hyperlipidemia): Code(s): E78.5 - Hyperlipidemia, unspecified Category: Medical Plan: Lipid panel ordered. Continue atorvastatin. Diet low in saturated fats highly processed foods. Continue weight loss efforts as discussed Plan Follow-up in 4 months. 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
[2025-02-05 08:07] VITALS: BP 110/60; PULSE 92; RESP 18; TEMP 36.6; O2SAT 97; BMI 31.8
== END 2025-02-05 08:29 | disposition home or self-care (01) ==
LOC: HO.HMCHD 07:59
PROVIDERS: Visit Provider Physician Assistant
DX: M77.11 Lateral epicondylitis, right elbow (principal); E11.9 Type 2 diabetes mellitus without complications; J45.50 Severe persistent asthma, uncomplicated; E78.5 Hyperlipidemia, unspecified

== ENCOUNTER → 2025-02-05 07:58 | Outpatient (BNVA) | payer OTHER, SELFPAY | PROVIDERS: Visit Provider Physician Assistant | DX: M77.11 Lateral epicondylitis, right elbow (principal); E11.9 Type 2 diabetes mellitus without complications; J45.50 Severe persistent asthma, uncomplicated; E78.5 Hyperlipidemia, unspecified; Z79.4 Long term (current) use of insulin; Z79.899 Other long term (current) drug therapy | CPT/HCPCS: 99212 ==

== ENCOUNTER 2025-02-05 08:37 | Outpatient (REF) | payer OTHER, SELFPAY ==
[2025-02-05 12:03] LABS: Anion Gap 9 (12-20); Blood Urea Nitrogen 10 mg/dL (9-16); Calcium 9.0 mg/dL (8.4-10.2); Carbon Dioxide 25 mmol/L (22-29); Chloride 109 mmol/L (96-108); Cholesterol 147 mg/dL (<200); Estimated Glomerular Filt Rate > 60; HDL Cholesterol 42 mg/dL (>40); Potassium 3.8 mmol/L (3.3-5.1); Sodium 139 mmol/L (135-145); Triglycerides 132 mg/dL (<150)
== END 2025-02-05 08:38 | disposition home or self-care (01) ==
LOC: HO.10HDL 08:37
PROVIDERS: Visit Provider Physician Assistant
DX: E11.9 Type 2 diabetes mellitus without complications (principal); J45.50 Severe persistent asthma, uncomplicated; Z79.4 Long term (current) use of insulin
CPT/HCPCS: 36415; 80048; 80061; 83036; 84443

== ENCOUNTER 2025-02-07 08:02 | Outpatient (AMB) | payer OTHER, SELFPAY ==
--- NOTE | 2025-02-07 08:05 | A.OFFVIS_ITS ---
Vital Signs 02/07/25 08:06 Height 5 ft Weight 169 lb 15.622 oz BMI 33.2 BP 106/68 Blood Pressure Location Lt brachial Position Sitting Pulse 92 Pulse Source Pulse Oximeter Pulse Oximetry (%) 97 Oxygen Delivery Method Room Air Intake Visit Reasons: T2DM Intake Note: Patient present today for Type 2 Diabetes Mellitus Last Diabetic eye exam: Last exam was on 11/11/24 Last Podiatry Visit: Patient has an upcoming appt for 03/24/25 Random Glucose: 100 mg/dl HgA1C: 8.3% 11/22/24 Court Recorder Required: No Accompanied by: Self / Same As Patient Allergies metformin Adverse Reaction (Intermediate, Verified 02/07/25 08:13) GI side effect semaglutide (From Ozempic) Adverse Reaction (Intermediate, Verified 02/07/25 08:13) headaches, dizzy, nausea tirzepatide (From Mounjaro) Adverse Reaction (Verified 02/07/25 08:13) abdominal pain and vomiting trulicity Adverse Reaction (Intermediate, Uncoded 02/07/25 08:13) Abdominal Pain Medication List - Last Reconciled 02/07/25 by Pallavi Marcos PA-C acetaminophen (Tylenol Extra Strength) 1,000 mg PO Q4H PRN albuterol sulfate 90 mcg/actuation (Ventolin HFA) 2 puffs PO Q6H PRN alcohol swabs (Alcohol Prep Pads) pad topical atorvastatin 10 mg PO BEDTIME benralizumab (Fasenra Pen) 30 mg subcut Q8W 8 weeks blood sugar diagnostic As directed blood sugar diagnostic (FreeStyle Lite Strips) CHECK 4 TIMES A DAY DIRECTED blood-glucose meter (FreeStyle Lite Meter kit) As directed checks 4 X/day blood-glucose sensor (FreeStyle Jeffrey 3 Plus Sensor device) Apply 1 new sensor every 15 days as directed to monitor blood glucose continuously. budesonide 0.5 mg (2 mL) inhalation BID 30 days cyclobenzaprine 10 mg PO DAILY PRN insulin glargine U-300 conc (Toujeo Max U-300 SoloStar) 60 units subcut DAILY insulin lispro (Humalog Rusty KwikPen (U-100)) 1 sliding scale dose subcut USEASDIRECTD ipratropium-albuterol 0.5 mg-3 mg(2.5 mg base)/3 mL 3 mL inhalation QID PRN lancets As directed checks 4 X/day lancets (FreeStyle Lancets) CHECK 4 TIMES A DAY DIRECTED liraglutide (Victoza 3-Saud) 1.8 mg (0.3 mL) subcut Q24H mometasone-formoterol 200-5 mcg/actuation (Dulera) 2 puffs inhalation Q12H 30 days naproxen 500 mg PO Q12H PRN nebulizers As directed pen needle, diabetic (BD Kaye 2nd Gen Pen Needle) USE DIRECTED tiotropium bromide 2.5 mcg/actuation (Spiriva Respimat) 2 puffs inhalation DAILY 30 days HPI HPI T2DM: Details: This is a 49-year-old female with a past medical history of asthma, seasonal allergies and type 2 diabetes presenting for diabetic management. She has a family history of type 2 diabetes on her paternal side. No known complications. Hemoglobin A1c is 6. Hemoglobin A1c was 8.3% 11/22/2024. Reviewed CGM data the past 2 weeks. 0% very high 7% high 93% target range 0% hypoglycemia GMI 6.5% Current medications: Victoza 1.8 mg daily and Toujeo 60 units and lispro sliding scale. Sliding scale: <150 0 units 151-200 4 units 201-250 6 units 251-300 8 units 301-350 10 units >350 12 units -She does not have any side effects Past medications: Mounjaro and Ozempic discontinued due to GI side effects. Ozempic also caused headaches and dizziness. Denies side effects thus far on Victoza. Jardiance caused UTI, Trulicity caused abdominal pain, metformin caused GI side effects No hypertension. Atorvastatin 10 mg taken for hyperlipidemia. [facility] Medical History (Updated 02/05/25 @ 08:24 by ILA Casanova) HLD (hyperlipidemia) Upper abdominal pain Diabetes mellitus, type II, insulin dependent Bronchopneumonia Chronic allergic rhinitis Asthma Lichen sclerosus of female genitalia Diabetes mellitus Surgical History History of nasal surgery (~1995) History of tubal ligation (~2013) Family History Maternal Grandmother Colon cancer Social History Household Members: Family Housing: House Do you presently have visiting nurse or other home services: No Alcohol intake: current Alcohol intake frequency: holidays/special occasions only Patient Tobacco Use Status: Never used Tobacco e-Cigarette/Vaping Use: Never Used Advance Directives Date on File: 10/25/21 service: No Current occupational status: employed 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 Sexual orientation: Straight/Heterosexual Female Reproductive History Menstrual Age of Menarche: 13 Physical Exam Vital Signs: Last Vital Signs Pulse 92 02/07/25 08:06 BP 106/68 02/07/25 08:06 Pulse Ox 97 02/07/25 08:06 Oxygen Delivery Method Room Air 02/07/25 08:06 BMI result Body Mass Index 33.2 Const Orientation/consciousness: patient oriented x3 HEENT Ears: hearing grossly normal bilaterally Neck Neck: Yes no lymphadenopathy Thyroid: Thyroid normal Carotids: no bruits Lymphatic: no lymphadenopathy noted Resp Auscultation: clear to auscultation bilaterally Cardio Rate: regular rate Rhythm: regular rhythm Heart sounds: S1 normal heart sound present and S2 normal heart sound present Peripheral pulses: dorsalis pedis present Skin General skin exam: no rashes or lesions noted Neuro General: patient oriented x3, gait normal and no focal motor deficits Extrem Other: Monofilament sensation intact bilaterally. Vibratory sensation intact bilaterally. Skin intact. 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 Monitor closely for GI side effects. Contact the office if you have any difficulty with it. Continue Toujeo to 69 units every evening. Continue lispro sliding scale. She will follow up in 3 months for Type II diabetes. Coding Level of Care Code Est Pt Level 4 (35833) Complex EM visit Add On G2211 Diagnoses Diabetes mellitus, type II, insulin dependent E11.9; Z79.4
--- OUTSIDE RECORDS SUMMARY | 2025-02-07 08:05 | XMS_ITS | Clinical Summary ---
Author Organization 175 [facility] Address 175 [place] [address] Phone Care Team Providers Care Foundation Director Name Role Phone Chuck Cohen MD Primary Care Provider Social History Tobacco Use Types Packs/Day Years Used Date Smoking Tobacco: Never Assessed Comments Unknown Sex and Gender Information Value Date Recorded Sex Assigned at Not on file Legal Sex Female 8:26 AM EDT Gender Identity Not on file Sexual Orientation Not on file Plan of Treatment Upcoming Encounters Date Type Department Care Team ([facility] Contact Info) Description 03/24/2025 2:15 PM EST Office Visit Orthopedic Surgery - [place] [address] 175 [facility] [address] [place] [phone] Linus Delong, YVONNE [address] [place] [phone] Health Maintenance Due Date Last Done [...] patient's age to complete this topic Insurance [facility] [place] [address] Care Teams Foundation Director Relationship Specialty Start Date End Date Chuck Cohen MD [address] [place] [address] [address] [place], [place] PCP - General Internal Medicine 8/19/25
[2025-02-07 08:06] VITALS: BP 106/68; PULSE 92; O2SAT 97; BMI 33.2
[2025-02-07 08:20] LABS: Glucose, Whole Blood 100 mg/dL (60-115)
== END 2025-02-07 08:30 | disposition home or self-care (01) ==
LOC: HO.ENCR 08:03
PROVIDERS: PCP Physician Assistant; Visit Provider Physician Assistant
DX: E11.9 Type 2 diabetes mellitus without complications (principal); Z79.4 Long term (current) use of insulin

== ENCOUNTER → 2025-02-07 08:02 | Outpatient (BNVA) | payer OTHER, SELFPAY | PROVIDERS: PCP Physician Assistant; Visit Provider Physician Assistant | DX: E11.9 Type 2 diabetes mellitus without complications (principal); J45.909 Unspecified asthma, uncomplicated; Z79.4 Long term (current) use of insulin | CPT/HCPCS: 82947; 99212 ==

== ENCOUNTER 2025-02-10 08:29 | Outpatient (REF) | payer OTHER, SELFPAY ==
--- NOTE | ~2025-02-10 | MM_ITS ---
EXAMINATION: MM SCREENING DIGITAL BREAST TOMOSYNTHESIS, BILATERAL CLINICAL INFORMATION: Screening. Asymptomatic. COMPARISON: Mammography: Comparison is made with available priors TECHNIQUE: Digital breast mammography with tomosynthesis is performed in both the craniocaudal and mediolateral oblique views along with computer-aided detection (CAD). FINDINGS: The breasts are extremely dense, which lowers the sensitivity of mammography. Bilateral circumscribed oval masses which wax and wane consistent with benign fibrocystic changes pre- There are no significant masses, abnormal calcifications, or other abnormalities. MM/MM tomosynthesis screening BI IMPRESSION: No mammographic evidence of malignancy. ASSESSMENT: BI-RADS Category 2: Benign RECOMMENDATION: Routine annual mammography screening. 1 year F/U This examination should not preclude the clinical evaluation of a suspicious palpable abnormality. This patient's information was entered into a reminder system with a target due date for their next mammogram. Electronically signed by: Ree Mosley DO 02/10/2025 09:22 AM CHEL
--- OUTSIDE RECORDS SUMMARY | 2025-02-10 08:53 | XMS_ITS | Clinical Summary ---
Author Organization 175 [facility] Address [address] [place] [address] Phone Care Team Providers Care Pedorthist Name Role Phone Chuck Cohen MD Primary Care Provider Social History Tobacco Use Types Packs/Day Years Used Date Smoking Tobacco: Never Assessed Comments Unknown Sex and Gender Information Value Date Recorded Sex Assigned at Not on file Legal Sex Female 8:26 AM EDT Gender Identity Not on file Sexual Orientation Not on file Plan of Treatment Upcoming Encounters Date Type Department Care Team ([facility] Contact Info) Description 03/24/2025 2:15 PM EST Office Visit Orthopedic Surgery - [place] [address] [facility] [address] [place] [phone] Linus Delong, YVONNE [address] [place] [phone] Health Maintenance Due Date Last Done [...] patient's age to complete this topic Insurance [facility] Care Teams Pedorthist Relationship Specialty Start Date End Date Chuck Cohen MD [address] [place] [address] [address] [place], [place] PCP - General Internal Medicine 8/19/25
== END 2025-02-10 08:30 | disposition home or self-care (01) ==
LOC: HO.MAMMO 08:29
PROVIDERS: PCP Physician Assistant; Visit Provider Physician Assistant
DX: Z12.31 Encounter for screening mammogram for malignant neoplasm of breast (principal)
CPT/HCPCS: 77063; 77067

== ENCOUNTER → 2025-02-10 08:30 | Outpatient (BNV) | payer OTHER, SELFPAY | PROVIDERS: PCP Physician Assistant; Visit Provider Internal Medicine | DX: Z12.31 Encounter for screening mammogram for malignant neoplasm of breast (principal) | CPT/HCPCS: 77063; 77067 ==

== ENCOUNTER 2025-03-03 09:04 | Outpatient (AMB) | payer OTHER, SELFPAY ==
[2025-03-03 09:07] VITALS: BP 112/70; PULSE 100; O2SAT 97; BMI 33.1
--- NOTE | 2025-03-03 09:07 | A.OFFVIS_ITS ---
Vital Signs 03/03/25 09:07 Height 5 ft Weight 169 lb 12.095 oz BMI 33.1 BP 112/70 Blood Pressure Location Lt brachial Position Sitting Pulse 100 Pulse Source Pulse Oximeter Pulse Oximetry (%) 97 Oxygen Delivery Method Room Air Intake Visit Reasons: Asthma follow-up [employer] Admissions Representative Required: No Accompanied by: Self / Same As Patient Allergies metformin Adverse Reaction (Intermediate, Verified 03/03/25 09:10) GI side effect semaglutide (From Ozempic) Adverse Reaction (Intermediate, Verified 03/03/25 09:10) headaches, dizzy, nausea tirzepatide (From Mounjaro) Adverse Reaction (Verified 03/03/25 09:10) abdominal pain and vomiting trulicity Adverse Reaction (Intermediate, Uncoded 02/07/25 08:13) Abdominal Pain HPI Comments Details: The patient is a 50 she is [id number] woman with known severe persistent asthma was recently admitted to [facility] with an asthma exacerbation. She has had multiple exacerbations requiring hospitalizations and has been taking prednisone off and on to treat her significant wheezing. 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 Apparently the patient was packing as she is moving was exposed to significant dust and resulted in her significant worsening symptoms requiring the admission to [place]. When admitted her CBC with differential demonstrated 12% eosinophils which is more than 600 absolute eosinophils. She again responded well to prednisone and IV Solu-Medrol. We did adjust her medications. 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 Current the patient is taking 40 mg of prednisone and she is feeling better. We will start to taper the prednisone down at this time. She did get approved to start Fasenra. 07/21/2023 the patient is here for follow-up significant asthma exacerbation she had a chest x-ray which we personally reviewed demonstrating no acute disease. Her blood work was reassuring. Her eosinophils are now 0. She has been on the Fasenra then has been help him fall. The Fasenra injection is very affecting beneficial she will continue the injections every 8 weeks. The patient has been using her Symbicort. She still having some shortness of breath after being in the hospital and also having some wheezing. On examination she has inspiratory and expiratory wheezing suggesting more mucus plugging asthma. Therefore she is going to start some Mucinex. If she has no better if she starts getting more congested she can also start a course of doxycycline again. Hopefully she does not know. She is off the prednisone right now. The patient will see about getting the Prevnar 20 vaccine. She will stop by the pharmacy and asked to see if she is due for the vaccine at this time. Will follow-up in 6 months or sooner if any other issues arise. 01/26/2024 the patient is here for pulmonary follow-up visit. She still struggling with the asthma. Still requiring her albuterol on a daily basis. She continues uses Symbicort as prescribed. The patient had been doing very well on Fasenra but she has not been keeping up with the injections. At this point based on her worsening symptoms she needs to be more adherent to the therapy. She understands that she has been forgetful. Will go ahead and request additional blood work to see Fasenra still the best option for her. Although at this point her eosinophils continue to be significantly elevated and her IgE appears to be okay. No recent imaging studies to review. The patient just completed a course of prednisone. Will go ahead and request the patient restarts her Fasenra shots this time. In addition to that I do believe that we can optimize her respiratory therapy by switching over to Breztri. 07/19/2024 the patient is here for pulmonary follow-up visit. Overall she is doing excellent. She is responding very also the Fasenra every 2 months and also did Dulera and Spiriva also have been affected. She has not been taking the Daliresp as much. Therefore will go ahead and stop it. She is having significant abdominal discomfort which may be related to the Daliresp in part. She is also on a GLP 1 inhibitor that can also cause significant dysmotility and abdominal discomfort. I explained to her likely that her discomfort is coming from that. She was sick back in June. She did go to the ER for worsening respiratory symptoms likely a respiratory viral syndrome resulting in some activation of her asthma. She did require some prednisone at that point but she clear quickly. The patient has not been requiring her rescue inhaler any longer. Her lungs are completely clear. Overall she is very good. As far as her abdominal discomfort they did check her LFTs when she went to the ER and I did reassure her with dose. The patient needs to be closely monitored for the GLP 1 adverse effects. For now although she will stop the Daliresp at that also can affect her GI system. 03/03/2025 the patient is here for pulmonary follow-up visit. The patient overall has been doing well from a respiratory status. She did run a 5K is then she had to use her rescue inhaler. The Fasenra has been very affecting beneficial. She had been having pain on her right arm. She is getting physical therapy and occupational therapy. I do not believe that is related to the Fasenra the Fasenra can result in some myalgias. The patient seems to be tolerating the Fasenra well in his helped her asthma significantly. Therefore will continue the therapy for now. She will get additional medications sent to the pharmacy. The patient will get a flu shot today. Will follow-up in 6-8 months. If any issues arise she can always call for an earlier assessment. [facility] Medical History (Updated 03/03/25 @ 09:22 by Chad Sexton MD) HLD (hyperlipidemia) Upper abdominal pain Diabetes mellitus, type II, insulin dependent Bronchopneumonia Chronic allergic rhinitis Asthma Lichen sclerosus of female genitalia Diabetes mellitus Surgical History History of nasal surgery (~1995) History of tubal ligation (~2013) Family History Maternal Grandmother Colon cancer Social History Household Members: Family Housing: House Do you presently have visiting nurse or other home services: No Alcohol intake: current Alcohol intake frequency: holidays/special occasions only Patient Tobacco Use Status: Never used Tobacco e-Cigarette/Vaping Use: Never Used Advance Directives Date on File: 10/25/21 service: No Current occupational status: employed 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 Sexual orientation: Straight/Heterosexual Female Reproductive History Menstrual Age of Menarche: 13 Review of Systems Const Denies chills, Denies fatigue, Denies malaise and Denies night sweats ENT Denies change in voice, Denies lip swelling, Denies mouth pain, Reports nasal congestion, Reports nasal discharge and Denies tongue swelling Card Denies chest pain and Denies dyspnea Resp Denies change in phlegm color, Reports cough, Denies hemoptysis, Denies pain on inspiration, Denies pain with cough, Denies dyspnea and Reports wheezing GI Reports abdominal pain Musc Reports as per HPI, Reports myalgias and Reports limited range of motion Neuro Denies Neuro-related abnormal movements Psych Denies no additional complaints Endo Denies fatigue Zain/Lymph Denies easy bleeding and Denies lymphadenopathy Aller/Immun Denies lip swelling, Denies tongue swelling and Reports wheezing Physical Exam Vital Signs: Last Vital Signs Pulse 100 03/03/25 09:07 BP 112/70 03/03/25 09:07 Pulse Ox 97 03/03/25 09:07 Oxygen Delivery Method Room Air 03/03/25 09:07 BMI result Body Mass Index 33.1 Const General: cooperative Orientation/consciousness: patient oriented x3 Neck Neck: Yes normal visual inspection, Yes full ROM and Yes no lymphadenopathy Chest Chest palpation & inspection: normal inspection of the chest Resp Auscultation: clear to auscultation bilaterally and no wheezes Cardio Rate: regular rate Rhythm: regular rhythm Heart sounds: S1 normal heart sound present and S2 normal heart sound present GI Palpation (GI): Soft to palpation and nontender Auscultation: normal bowel sounds General: Yes no CVA tenderness Back/Spine/Pelvis Back: no CVA tenderness Skin General skin exam: rashes and/or lesions noted Neuro General: patient oriented x3 Extrem Right upper extremity: elbow/forearm Details: tenderness Office Procedures Flu Questionnaire Does the patient have a severe egg allergy?: No Does the patient have severe life threatening allergies?: No Does the patient have a fever or illness today?: No Has the patient ever had Guillain-Walworth Syndrome?: No Has the patient ever had any past reaction to a flu shot?: No Immunizations Fluarix [id number] (PF) 45 mcg (15 mcg x 3)/0.5 mL IM syringe Performing Provider: Chad Sexton MD Performing Location: [facility] Administered by: Karlie Enrique LPN on 03/03/25 09:46 Dose Route Admin Location Dispensed Lot Number Expiration Date NDC Grain Farmer 0.5 mL IM Left Deltoid 0.5 mL [id number] 10/07/25 82788-032-64 [employer] VIS Given Date VIS Provided VIS Publication Date 03/03/25 Single Vaccine 24 Eligibility Eligibility Date Funding Source Not [facility] Eligible 03/03/25 Private Assessment & Plan Assessment & Plan (1) Asthma: Code(s): J45.909 - Unspecified asthma, uncomplicated Category: Medical Qualifiers: Asthma complication type: uncomplicated Asthma persistence: persistent Asthma severity: severe Qualified Code(s): J45.50 - Severe persistent asthma, uncomplicated (2) Chronic allergic rhinitis: Code(s): J30.9 - Allergic rhinitis, unspecified Category: Medical (3) Abdominal pain: Code(s): R10.9 - Unspecified abdominal pain Category: Medical Qualifiers: Abdominal location: epigastric Qualified Code(s): R10.13 - Epigastric pain (4) Pain: Code(s): R52 - Pain, unspecified Category: Medical Plan Dulera Spiriva Duoneb BUdesonide KEREN as needed continue Fasenra [id number] Follow-up in 8-10 months Orders: Orders XR elbow RT min 3V Today R52 - Pain, unspecified XR forearm RT 2V Today R52 - Pain, unspecified Influenza [id number] Immunization Today J45.50 - Severe persistent asthma, uncomplicated Medications: New budesonide 0.5 mg (2 mL) inhalation BID 120 mL 11RF 30 days J44.9 - Chronic obstructive pulmonary disease, unspecified ipratropium-albuterol 0.5 mg-3 mg(2.5 mg base)/3 mL 3 mL inhalation QID 360 mL 11RF 30 days J44.9 - Chronic obstructive pulmonary disease, unspecified Coding Level of Care Code Est Pt Level 4 (72680) Diagnoses Severe persistent asthma without complication J45.50 Asthma complication type: uncomplicated Asthma persistence: persistent Asthma severity: severe Chronic allergic rhinitis J30.9 Epigastric pain R10.13 Abdominal location: epigastric Pain R52 Time Spent (min) 16
--- OUTSIDE RECORDS SUMMARY | 2025-03-03 09:57 | XMS_ITS | Clinical Summary ---
Author Organization 175 [facility] Address [address] [place] [address] Phone Care Team Providers Care Production Counter Name Role Phone Chuck Cohen MD Primary Care Provider Social History Tobacco Use Types Packs/Day Years Used Date Smoking Tobacco: Never Assessed Comments Unknown Sex and Gender Information Value Date Recorded Sex Assigned at Not on file Legal Sex Female 8:26 AM EDT Gender Identity Not on file Sexual Orientation Not on file Plan of Treatment Upcoming Encounters Date Type Department Care Team ([facility] Contact Info) Description 03/24/2025 2:15 PM EST Office Visit Orthopedic Surgery - [place] [id number] [phone] Linus Delong, YVONNE [address] [address] Health Maintenance Due Date Last Done Comments Breast Cancer Screening 1975 Colorectal Cancer Screening: Colonoscopy 1975 DTaP,Tdap,and Td Vaccines (1 - Tdap) 1994 Hepatitis B Vaccines (1 of 3 - 19+ 3-dose series) 1994 Pneumococcal Vaccine: 50+ Ye ars (1 of 2 - PCV) 1994 Cervical Cancer Screening: P ap Smear 02/14/1996 Depression Screening 04/10/2024 HIV Screening 11/26/2024 Hepatitis C Screening 11/26/2024 Social Influencers of Health Screening 11/26/2024 COVID-19 Vaccine (1 - 2024-2 6 season) 2024 Influenza Vaccine (#1) 2024 Zoster Vaccines (1 of 2) 2025 RSV Immunization Adult Patie nts (1 - [...] patient's age to complete this topic Insurance [facility] Care Teams Production Counter Relationship Specialty Start Date End Date Chuck Cohen MD [address] [place] [address] [address] [place], [place] PCP - General Internal Medicine 11/26/24
== END 2025-03-03 09:51 | disposition home or self-care (01) ==
PROVIDERS: PCP Internal Medicine; Visit Provider Hospitalist
DX: J45.50 Severe persistent asthma, uncomplicated (principal); J30.9 Allergic rhinitis, unspecified; R10.13 Epigastric pain; R52 Pain, unspecified
CPT/HCPCS: 99214

== ENCOUNTER 2025-03-03 09:04 | Outpatient (REF) | payer OTHER, SELFPAY ==
--- NOTE | ~2025-03-03 | XR_ITS ---
EXAMINATION: XR FOREARM 2 VIEWS RIGHT, XR ELBOW 3 VIEWS RIGHT HISTORY: R52 - Pain, unspecified COMPARISON: There are no prior studies available for comparison. FINDINGS: Three views of the right elbow and AP and lateral views of the right forearm are submitted. Osseous mineralization is normal. There is no fracture or dislocation. The joint spaces are preserved. The soft tissues are unremarkable. XR/XR elbow RT min 3V IMPRESSION: Unremarkable examination of the right elbow and forearm. Electronically signed by: Sincere Parnell MD 03/03/2025 11:13 AM CHEL YOUNGBLOOD
--- NOTE | ~2025-03-03 | XR_ITS ---
EXAMINATION: XR FOREARM 2 VIEWS RIGHT, XR ELBOW 3 VIEWS RIGHT HISTORY: R52 - Pain, unspecified COMPARISON: There are no prior studies available for comparison. FINDINGS: Three views of the right elbow and AP and lateral views of the right forearm are submitted. Osseous mineralization is normal. There is no fracture or dislocation. The joint spaces are preserved. The soft tissues are unremarkable. XR/XR forearm RT 2V IMPRESSION: Unremarkable examination of the right elbow and forearm. Electronically signed by: Sincere Parnell MD 03/03/2025 11:13 AM CHEL
== END 2025-03-03 09:05 | disposition home or self-care (01) ==
LOC: HO.XRAY 09:04
PROVIDERS: PCP Physician Assistant; Visit Provider Hospitalist
DX: J45.50 Severe persistent asthma, uncomplicated (principal); J44.9 Chronic obstructive pulmonary disease, unspecified; J30.9 Allergic rhinitis, unspecified; R10.13 Epigastric pain; M25.521 Pain in right elbow; Z79.899 Other long term (current) drug therapy
CPT/HCPCS: 73080; 73090; 90471; 90656; 99212

== ENCOUNTER → 2025-03-03 09:48 | Outpatient (BNV) | payer OTHER, SELFPAY | PROVIDERS: PCP Physician Assistant; Visit Provider Radiology Diagnostic Radiology | DX: M25.521 Pain in right elbow (principal); M79.631 Pain in right forearm | CPT/HCPCS: 73080; 73090 ==

== ENCOUNTER 2025-03-19 11:55 | Outpatient (REF) | payer OTHER, SELFPAY ==
--- NOTE | ~2025-03-19 | XR_ITS ---
EXAMINATION: XR HAND 3 VIEWS BILATERAL CLINICAL INFORMATION: M79.641 - Pain in right hand COMPARISON: None available. TECHNIQUE: PA, lateral, and oblique views of the right and left hands. FINDINGS: No fracture. Normal alignment. Joint spaces are preserved. No erosions. No abnormal soft tissue calcifications. XR/XR Hand Bilat min 3v IMPRESSION: Unremarkable examination of the right and left hands. Electronically signed by: Megan Guzman MD 03/19/2025 12:32 PM EST
== END 2025-03-19 11:56 | disposition home or self-care (01) ==
LOC: HO.XRAY 11:55
PROVIDERS: PCP Physician Assistant; Visit Provider Physician Assistant
DX: M79.641 Pain in right hand (principal)
CPT/HCPCS: 73130

== ENCOUNTER → 2025-03-19 11:59 | Outpatient (BNV) | payer OTHER, SELFPAY | PROVIDERS: PCP Physician Assistant; Visit Provider Radiology Body Imaging | DX: M79.641 Pain in right hand (principal) | CPT/HCPCS: 73130 ==